=== PATIENT | male | born 1965 | race Caucasian/White ===

== ENCOUNTER 2020-06-21 07:22 | Emergency (ER) | payer OTHER, SELFPAY ==
[2020-06-21 07:40] VITALS: BP 143/86; PULSE 78; RESP 16; TEMP 37.2; O2SAT 97; BMI 39.5
--- NOTE | 2020-06-21 07:49 | ED.EXTPRO ---
HPI - Extremity Problem General Chief complaint: Extremity Injury, Upper Stated complaint: wrist pain Time Seen by Provider: 06/21/20 07:49 Source: patient Mode of arrival: ambulatory Limitations: no limitations History of Present Illness HPI Narrative: Saturday patient was at work denies injury but started developing increased pain. Patient is left handed MD Complaint: extremity pain Onset (ago): week(s) Location: left Related Data Previous Rx's Medication Instructions Recorded metoprolol tartrate 100 mg tablet 100 mg PO BID #180 tab 05/23/20 naproxen [Naprosyn] 500 mg PO BID #20 tab 06/21/20 Allergies Allergy/AdvReac Type Severity Reaction Status Date / Time No Known Allergies Allergy Unverified 04/28/20 14:58 N.K.D.A. Allergy Unknown Uncoded 12/03/17 00:00 Review of Systems Constitutional: Constitutional: Reports no additional constitutional complaints Eyes: Eyes: Reports no additional eye complaints ENT: Denies dizziness Cardiovascular: Cardiovascular: Reports no additional cardiovascular complaints Respiratory: Respiratory: Reports as per HPI Gastrointestinal: Gastrointestinal: Reports no additional gastrointestinal complaints Musculoskeletal: Musculoskeletal: Reports no additional musculoskeletal complaints Integumentary/Breasts: Skin/Breast: Denies rash Neurologic: Reports system reviewed and no additional complaints, except as documented, Denies dizziness and Denies Sensory deficit (Neuro) Psychiatric: Psychiatric: Denies anxiety PMF Past Medical History Medical History HTN (hypertension) Social History Social History Alcohol intake: unknown Smoking Status: Never smoker Smoked in Last 30 Days: No Use of substances other than those prescribed or required for medical reasons: No Advance Directives: Yes Advance Directives Information Provided: Yes Advance Directives on File: No Physical Exam Vital Signs: Vital Signs: Last Vital Signs Temp 98.9 F 06/21/20 07:40 Pulse 78 06/21/20 07:40 Resp 16 06/21/20 07:40 BP 143/86 H 06/21/20 07:40 Pulse Ox 97 06/21/20 07:40 Body Mass Index 39.5 Const: Other: large male General: healthy appearing Orientation/consciousness: oriented to person and patient oriented x3 Limitations: no limitations HENMT: Head: Yes normal to inspection Ears: external ears normal General nose exam: Normal external nose present Mouth: Normal oral and palatal mucosa present and oropharynx normal Throat: Yes posterior oropharynx normal Eyes: General: appearance normal, both eyes and all related structures Neck: Other: supple Neck: Yes normal visual inspection Chest: Chest palpation & inspection: normal inspection of the chest Resp: Auscultation: clear to auscultation bilaterally Cardio: Jugular venous distension: no JVD Rate: regular rate Rhythm: regular rhythm Heart sounds: S1 normal heart sound present and S2 normal heart sound present GI: Inspection: Yes normal to inspection Palpation (GI): Soft to palpation, nontender and No hepatosplenomegaly present Auscultation: normal bowel sounds : General: Yes no CVA tenderness Back/Spine/Pelvis: Back: no CVA tenderness Skin: General skin exam: no rashes or lesions noted Neuro: General: oriented to person and patient oriented x3 Cranial nerves: Yes CN's II-XII intact bilaterally Motor exam (neuro): 5/5 motor strength present throughout Sensory Exam: No Sensory deficit (Neuro) Extrem: Other: left wrist with mild swelling, no effusion appreciated, no erythema, pain with range of motion Psych: Appearance: grossly normal Course Course Course Narrative: Patient with costrocalcinosis on xray will treat with NSAIDS MDM - Extremity (Nontraumatic) MDM Narrative Medical decision making narrative: patient with likely arthralgias and inflammed wrist Discharge Plan Discharge Clinical Impression: Arthritis, Sprain and strain of wrist Patient Disposition: Home, Self-Care Instructions: Arthritis (ED) Prescriptions: New naproxen [Naprosyn] 500 mg tablet 500 mg PO BID Qty: 20 RF: 0 No Action metoprolol tartrate 100 mg tablet 100 mg PO BID Qty: 180 RF: 3 Referrals: Po,Anthony Macias MD [Primary Care Provider] - 2 days
--- NOTE | 2020-06-21 07:52 | XR_ITS ---
EXAMINATION: XR WRIST, LEFT CLINICAL INFORMATION: Pain, inflammation COMPARISON: None TECHNIQUE: Left wrist is imaged in 4 views. FINDINGS: There is dorsal bowing of the distal ulnar at the sigmoid notch. The pronator quadratus fat pad appears normal. The ulnar variance is neutral. There is no acute or healing fracture or carpal dislocation. There is fine chondrocalcinosis in the proximal radial carpal compartment in region of the triangular fibrocartilage and and possibly in region of the scapholunate ligament. There are no erosive changes. Benign contralateral cystic change seen distal ulnar. No matrix mineralization. No periostitis. XR/XR wrist LT min 3V IMPRESSION: 1. Dorsal bowing distal ulnar at the sigmoid notch. No acute or healing fracture. 2. Chondrocalcinosis in region of triangular fibrocartilage and scapholunate ligament. No erosive change.
[2020-06-21] MEDS: Ketorolac Tromethamine 60 MG/2 ML VIAL IM (08:02)
== END 2020-06-21 09:18 | disposition home or self-care (01) ==
PROVIDERS: Emergency Provider Emergency Medicine; PCP Internal Medicine
DX: S63.502A Unspecified sprain of left wrist, initial encounter (principal); M25.532 Pain in left wrist; X58.XXXA Exposure to other specified factors, initial encounter; Y93.9 Activity, unspecified; Y92.9 Unspecified place or not applicable; Y99.0 Civilian activity done for income or pay
CPT/HCPCS: 73110; 96372; 99283; 99284; J1885

== ENCOUNTER → 2020-09-07 10:00 | Outpatient (BNVA) | payer OTHER, SELFPAY | PROVIDERS: PCP Internal Medicine; Visit Provider Orthopaedic Surgery | DX: Z76.89 Persons encountering health services in other specified circumstances (principal) | CPT/HCPCS: 20550; J1100 ==

== ENCOUNTER 2020-09-28 11:37 | Outpatient (REF) | payer OTHER, SELFPAY ==
[2020-09-28 14:40] LABS: Alanine Aminotransferase 19 U/L (0-40); Albumin Level 3.9 g/dL (3.5-5.0); Alkaline Phosphatase 58 U/L (39-117); Anion Gap 10 (12-20); Aspartate Amino Transferase 22 U/L (5-37); Bilirubin Total 0.7 mg/dL (0.0-1.0); Blood Urea Nitrogen 24 mg/dL (9-16); Calcium 8.8 mg/dL (8.4-10.2); Carbon Dioxide 37 mmol/L (22-29); Chloride 100 mmol/L (96-108); Estimated Glomerular Filt Rate > 60; Glucose Random 93 mg/dL (60-115); Potassium 4.5 mmol/L (3.3-5.1); Sodium 142 mmol/L (135-145)
== END 2020-09-28 11:38 | disposition home or self-care (01) ==
LOC: HO.HMGCLDS 11:37
PROVIDERS: PCP Internal Medicine; Visit Provider Internal Medicine
DX: M79.89 Other specified soft tissue disorders (principal); M25.532 Pain in left wrist
CPT/HCPCS: 36415; 80053

== ENCOUNTER → 2021-06-06 13:16 | Outpatient (BNVA) | payer OTHER, SELFPAY | PROVIDERS: PCP Internal Medicine; Referring Provider Internal Medicine; Visit Provider Internal Medicine | DX: I48.19 Other persistent atrial fibrillation (principal); I10 Essential (primary) hypertension; G47.33 Obstructive sleep apnea (adult) (pediatric); E66.01 Morbid (severe) obesity due to excess calories; R06.02 Shortness of breath; B34.2 Coronavirus infection, unspecified; Q21.1 Atrial septal defect; E78.00 Pure hypercholesterolemia, unspecified; Z68.41 Body mass index [BMI] 40.0-44.9, adult; Z99.89 Dependence on other enabling machines and devices; Z79.899 Other long term (current) drug therapy | CPT/HCPCS: 93005 ==

== ENCOUNTER → 2021-06-28 15:27 | Outpatient (REF) | payer OTHER, SELFPAY ==
--- NOTE | 2021-06-28 15:30 | HM_ITS ---
Conclusion: 1. Patient was monitored for total period of 2 days and 23 hours 2. Baseline rhythm is atrial fibrillation with average heart of 75 beats per minute. Overall rate control is adequate with maximum heart rate 144 beats per minute 3. No significant pauses noted 4. Total of 671 PVCs accounting for 0.21% total burden comes for occasional PVCs 5. No patient reported events MTDD
== END ==
LOC: HO.CARD 15:27
PROVIDERS: PCP Internal Medicine; Visit Provider Internal Medicine
DX: I48.19 Other persistent atrial fibrillation (principal)
CPT/HCPCS: 93242

== ENCOUNTER → 2021-08-14 10:40 | Outpatient (BNVA) | payer OTHER, SELFPAY | PROVIDERS: PCP Internal Medicine; Referring Provider Internal Medicine; Visit Provider Internal Medicine ==

== ENCOUNTER → 2022-11-14 10:46 | Outpatient (BNVA) | payer OTHER, SELFPAY | PROVIDERS: PCP Internal Medicine; Visit Provider Nurse Practitioner Psychiatric/Mental Health | DX: F11.20 Opioid dependence, uncomplicated (principal); Z51.81 Encounter for therapeutic drug level monitoring; Z79.899 Other long term (current) drug therapy | CPT/HCPCS: 80305 ==

== ENCOUNTER → 2022-12-18 09:09 | Outpatient (BNVA) | payer OTHER, SELFPAY | PROVIDERS: PCP Internal Medicine; Visit Provider Nurse Practitioner Psychiatric/Mental Health | DX: Z51.81 Encounter for therapeutic drug level monitoring (principal) ==

== ENCOUNTER 2022-12-18 09:54 | Outpatient (REF) | payer OTHER, SELFPAY ==
[2022-12-18 10:23] LABS: MANUAL DIFF FLAG NO
[2022-12-18 10:42] LABS: Basophils Percent Auto 0.8 % (0-2); Eosinophils Absolute Auto 0.1 X10*3/uL (0.0-0.4); Eosinophils Percent Auto 1.1 % (0-4); Hematocrit 46.1 % (42.0-52.0); Hemoglobin 14.8 g/dl (14.0-18.0); Imm Gran Abs Auto 0.01 X10*3/uL (0.00-0.03); Imm Gran Pct Auto 0.2 % (0.0-0.4); Lymphocytes Percent Auto 18.9 % (20-40); Mean Corpuscular HGB Conc 32.1 g/dl (31.0-36.0); Mean Corpuscular Hemoglobin 29.7 pg (27.0-33.0); Mean Corpuscular Volume 92.4 fL (80.0-98.0); Mean Platelet Volume 10.1 fL (9.4-12.4); Monocytes Absolute Auto 0.5 X10*3/uL (0.1-1.2); Neutrophils Absolute Auto 3.7 x10*3/uL (2.0-8.3); Platelet Count 116 X10*3/uL (160-400); Red Blood Count 4.99 X10*6/uL (4.60-5.80); Red Cell Distribution Width 14.2 % (11.0-16.0); White Blood Count 5.3 X10*3/uL (4.8-10.8)
[2022-12-18 12:25] LABS: Alanine Aminotransferase 17 U/L (0-40); Albumin Level 3.8 g/dL (3.5-5.0); Alkaline Phosphatase 102 U/L (39-117); Anion Gap 13 (12-20); Aspartate Amino Transferase 26 U/L (5-37); Bilirubin Total 0.6 mg/dL (0.0-1.0); Blood Urea Nitrogen 38 mg/dL (9-16); Carbon Dioxide 31 mmol/L (22-29); Chloride 102 mmol/L (96-108); Estimated Glomerular Filt Rate > 60; Glucose Random 127 mg/dL (60-115); Potassium 4.9 mmol/L (3.3-5.1); Sodium 141 mmol/L (135-145); Total Protein 6.7 g/dL (6.5-8.0)
[2022-12-20 16:09] LABS: TS Negative Control Passed; TS Panel A 0; TS Panel B 2; TS Positive Control Passed; TSpotTB Negative (Negative)
== END 2022-12-18 09:55 | disposition home or self-care (01) ==
LOC: HO.LAB 09:54
PROVIDERS: PCP Dermatology; Visit Provider Dermatology
DX: Z11.1 Encounter for screening for respiratory tuberculosis (principal); L40.0 Psoriasis vulgaris; Z79.899 Other long term (current) drug therapy
CPT/HCPCS: 36415; 80053; 85025; 86481

== ENCOUNTER → 2023-01-15 09:07 | Outpatient (BNVA) | payer OTHER, SELFPAY | PROVIDERS: PCP Dermatology; Visit Provider Nurse Practitioner Psychiatric/Mental Health | DX: Z51.81 Encounter for therapeutic drug level monitoring (principal); F11.20 Opioid dependence, uncomplicated | CPT/HCPCS: 80305 ==

== ENCOUNTER 2023-02-20 09:11 | Outpatient (AMB) | payer OTHER, SELFPAY ==
[2023-02-20 09:22] VITALS: BP 126/72; PULSE 45; BMI 26.3
--- NOTE | 2023-02-20 09:22 | A.OFFVIS_ITS ---
Intake Vital Signs 02/20/23 09:22 Height 5 ft 8 in Weight 172 lb 13.478 oz BMI 26.3 BP 126/72 Blood Pressure Location Lt brachial Position Sitting Pulse 45 L Intake Visit Reasons: follow up Intake Note: follow up w/ EKG Filling Carrier Required: No Accompanied by: Self / Same As Patient Allergies No Known Allergies Allergy (Verified 02/20/23 09:26) Medication List - Last Reconciled 02/20/23 by Manjit Giles MD apixaban (Eliquis) 5 mg PO BID 90 days buprenorphine-naloxone 4-1 mg 1 film sublingual DAILY fenofibrate 160 mg PO DAILY furosemide (Lasix) 40 mg (2 x 20 mg) PO DAILY 90 days guselkumab (Tremfya) mg subcut metoprolol tartrate 100 mg PO BID simvastatin 40 mg PO BEDTIME HPI HPI Comments History of Present Illness Details Channing is here for followup regarding various issues including atrial fibrillation, atrial septal defect. He has a history of secundum atrial septal defect. He underwent surgical closure of the same in 2008. He also had postoperative atrial fibrillation but it seems that that probably resolved after the initial postoperative. However we had seen him in 2014 and at that time he was in atrial fibrillation. Cardioversion was recommended at that time, but we did not see him back till 2020. However, after that he is not again been seen in a while but now returns for follow-up. Since last seen, he actually has been doing quite well. He has lost more than 100 lb in weight. He states he is going to the gym twice a day. He has absolutely no cardiac symptoms. [facility] Medical History (Updated 11/16/22 @ 11:18 by Nyasia Miguel CNP) Atrial fibrillation Atrial septal defect Biceps tendon rupture Chronic low back pain COVID-19 virus infection Hypercholesterolemia Left wrist tendinitis Obesity (BMI 30-39.9) Obstructive sleep apnea Psoriasis Synovial cyst of popliteal space [Lyle], left knee Surgical History H/O arthroscopic knee surgery H/O spinal fusion H/O umbilical hernia repair History of repair of atrial septal defect Family History Father No problems noted. Mother No problems noted. 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 Cognitive needs: No Hearing needs: No Vision needs: No Review of Systems Const Denies weakness ENT Denies dizziness Card Denies chest pain, Denies chest pain with activity, Denies syncope, Denies rapid heart rate, Denies pedal edema, Denies edema, Denies leg edema, Denies lightheadedness, Denies palpitations, Denies dyspnea, Denies dyspnea on exertion and Denies orthopnea Resp Denies cough, Denies dyspnea and Denies dyspnea on exertion GI Denies hematochezia and Denies change in stool character Musc Denies abnormal gait, Denies muscle cramps, Denies muscle weakness, Denies numbness, Denies radiating pain into limb and Denies tingling Neuro Denies abnormal gait, Denies dizziness, Denies syncope, Denies numbness, Denies tingling and Denies weakness Endo Denies palpitations Physical Exam Vital Signs: Last Vital Signs Pulse 45 L 02/20/23 09:22 BP 126/72 02/20/23 09:22 BMI result Body Mass Index 26.3 Const General: comfortable and no acute distress Orientation/consciousness: patient oriented x3 HEENT Other: Unremarkable Head: Yes normal to inspection Neck Neck: Yes normal visual inspection Chest Chest palpation & inspection: normal inspection of the chest Resp Auscultation: clear to auscultation bilaterally Cardio Palpation: normal PMI Heart sounds: S1 normal heart sound present, S2 normal heart sound present, no gallops, no murmurs and no rubs GI Palpation (GI): Soft to palpation Back/Spine/Pelvis Other: unremarkable Skin General skin exam: no rashes or lesions noted Neuro General: patient oriented x3 Extrem General: Yes normal to inspection Psych Mental Status: mental status grossly normal Office Procedures EKG Details: EKG with atrial fibrillation at a rate of 45/Min; right bundle-branch block pattern. [id number], Complete Assessment & Plan Assessment & Plan (1) Chronic right heart failure: Code(s): I50.812 - Chronic right heart failure Plan: Echocardiogram from [facility] shows marked enlargement of right ventricle with global hypokinesis. Could be related to combination of obesity, untreated sleep apnea, history of ASD. As he has lost lot of weight, we can recheck to see if any improvement. With regard diuretics, we can stop it and see how he does. If necessary, use a lower dose or just use p.r.n.. He understands. (2) NICM (nonischemic cardiomyopathy): Code(s): I42.8 - Other cardiomyopathies Plan: Mild LV dysfunction with EF of 45-50%. Could be from atrial fibrillation. To be recheck. Meds to be adjusted accordingly considering the fact that he has lost more than 100 lb in weight. (3) Status post atrial septal defect closure: Code(s): Z87.74 - Personal history of (corrected) congenital malformations of heart and circulatory system Plan: Preoperative cardiac catheterization showed normal coronaries. (4) Persistent atrial fibrillation: Code(s): I48.19 - Other persistent atrial fibrillation Plan: He has had this probably for a decade now. In the last echocardiogram, severely enlarged left atrium and moderately enlarged right atrium. Unlikely that respond to cardioversion. However, we can do a Holter and then we can readdress this. Continue anticoagulation. (5) Essential hypertension: Code(s): I10 - Essential (primary) hypertension Plan: Stable. (6) Obstructive sleep apnea: Code(s): G47.33 - Obstructive sleep apnea (adult) (pediatric) Plan: Most likely it improved as he has lost lot of weight. Still may need some formal assessment. In the past, was sent to pulmonary but do not see any visits. (7) Morbid obesity: Code(s): E66.01 - Morbid (severe) obesity due to excess calories Plan: He has done very well in this regard. In August 2021, he was 288 lb in weight. Today he is 172 lb. Overall, more than 100 lb weight loss. Hopefully, he can keep it this way. Orders: Orders CA echo transthoracic complete Today I42.8 - Other cardiomyopathies, I50.812 - Chronic right heart failure ECG 3 day holter monitor Today I48.19 - Other persistent atrial fibrillation Lipid Panel Today E78.5 - Hyperlipidemia, unspecified Medications: New metoprolol tartrate 50 mg PO BID 180 tabs 3RF 90 days Discontinued metoprolol tartrate Discontinued Reason: Doctor's Order 100 mg PO BID 180 tabs 0RF Coding Level of Care Code Est Pt Level 4 (84143) Diagnoses Chronic right heart failure I50.812 NICM (nonischemic cardiomyopathy) I42.8 Status post atrial septal defect closure Z87.74 Persistent atrial fibrillation I48.19 Essential hypertension I10 Obstructive sleep apnea G47.33 Morbid obesity E66.01 CPT Codes EKG - CPT: 57430-[id number], Complete ([id number])
== END 2023-02-20 09:53 | disposition home or self-care (01) ==
PROVIDERS: PCP Dermatology; Visit Provider Internal Medicine
DX: I50.812 Chronic right heart failure (principal); I42.8 Other cardiomyopathies; Z87.74 Personal history of (corrected) congenital malformations of heart and circulatory system; I48.19 Other persistent atrial fibrillation; I10 Essential (primary) hypertension; G47.33 Obstructive sleep apnea (adult) (pediatric); E66.01 Morbid (severe) obesity due to excess calories
CPT/HCPCS: 93010; 99214

== ENCOUNTER → 2023-02-20 09:11 | Outpatient (BNVA) | payer OTHER, SELFPAY | PROVIDERS: PCP Dermatology; Visit Provider Internal Medicine | DX: I48.19 Other persistent atrial fibrillation (principal); I11.0 Hypertensive heart disease with heart failure; I50.812 Chronic right heart failure; I42.8 Other cardiomyopathies; G47.33 Obstructive sleep apnea (adult) (pediatric); E66.01 Morbid (severe) obesity due to excess calories; E78.5 Hyperlipidemia, unspecified; Z87.74 Personal history of (corrected) congenital malformations of heart and circulatory system; Z79.899 Other long term (current) drug therapy | CPT/HCPCS: 93005 ==

== ENCOUNTER 2023-03-12 09:03 | Outpatient (AMB) | payer OTHER, SELFPAY ==
--- NOTE | 2023-03-12 09:04 | MHC.OFFVIS ---
Intake Vital Signs 03/12/23 09:16 BP 118/70 Blood Pressure Location Lt radial Position Sitting Pulse 63 Pulse Source Pulse Oximeter Pulse Oximetry (%) 98 Oxygen Delivery Method Room Air Intake Visit Reasons: MAT Visit Intake Note: The patient presents for a mat visit Director Learning Services Required: No Allergies No Known Allergies Allergy (Verified 03/12/23 09:05) Do you need a note to return to daycare/school/sports/work: No HPI MAT Visit HPI Details Patient presents for follow up Currently prescribed Suboxone 4mg QD Doing well with current dose Was reading information on Sublocade, would like to trial Discussed side effects, dosing and goals of medicaiton. Patient verbalized understaning. [facility] Medical History (Updated 11/16/22 @ 11:18 by Nyasia Miguel CNP) Atrial fibrillation Atrial septal defect Biceps tendon rupture Chronic low back pain COVID-19 virus infection Hypercholesterolemia Left wrist tendinitis Obesity (BMI 30-39.9) Obstructive sleep apnea Psoriasis Synovial cyst of popliteal space [Lyle], left knee Surgical History H/O arthroscopic knee surgery H/O spinal fusion H/O umbilical hernia repair History of repair of atrial septal defect Family History Father No problems noted. Mother No problems noted. 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 Cognitive needs: No Hearing needs: No Vision needs: No Review of Systems Const Reports as per HPI Physical Exam Vital Signs: Last Vital Signs Pulse 63 03/12/23 09:16 BP 118/70 03/12/23 09:16 Pulse Ox 98 03/12/23 09:16 Oxygen Delivery Method Room Air 03/12/23 09:16 Const General: cooperative and healthy appearing Psych Appearance: well kempt Speech and movement: Clear speech present Affect: normal affect Attitude: cooperative Thought process: Normal thought process present Thought content: Normal thought content present Insight: Good insight present (Psych) Judgement: Good judgement present (Psych) Assessment & Plan Assessment & Plan (1) Opioid dependence: Code(s): F11.20 - Opioid dependence, uncomplicated Plan: Continue Suboxone at current dose Follow-up 8 weeks Sublocade 100mg to be ordered Medications: Refilled buprenorphine-naloxone 4-1 mg 1 film sublingual DAILY 30 ea 1RF Coding Level of Care Code Est Pt Level 3 (13721) Diagnoses Opioid dependence F11.20
[2023-03-12 09:16] VITALS: BP 118/70; PULSE 63; O2SAT 98
== END 2023-03-12 09:59 | disposition home or self-care (01) ==
LOC: HO.HCC 09:03
PROVIDERS: PCP Dermatology; Visit Provider Nurse Practitioner Psychiatric/Mental Health
DX: F11.20 Opioid dependence, uncomplicated (principal)
CPT/HCPCS: 99213

== ENCOUNTER → 2023-03-12 09:03 | Outpatient (BNVA) | payer OTHER, SELFPAY | PROVIDERS: PCP Dermatology; Visit Provider Nurse Practitioner Psychiatric/Mental Health | DX: Z51.81 Encounter for therapeutic drug level monitoring (principal) ==

== ENCOUNTER → 2023-04-04 09:05 | Outpatient (BNV) | payer OTHER, SELFPAY | PROVIDERS: PCP Internal Medicine; Visit Provider Internal Medicine Cardiovascular Disease | DX: I48.91 Unspecified atrial fibrillation (principal) | CPT/HCPCS: 93244 ==

== ENCOUNTER → 2023-04-04 09:05 | Outpatient (REF) | payer OTHER, SELFPAY ==
--- NOTE | 2023-04-04 09:05 | HM_ITS ---
Conclusion: 1. Patient was monitored for total period of 3 days 2. Baseline rhythm is atrial fibrillation with average heart of 68 beats per minute 3. Multiple pauses greater than 2.5 but no longer than 3.1 seconds, all during sleeping hours, not significant 4. Rare PVCs noted with 2 triplets of wide complex which could represent aberrant conduction with fastest heart of 153 beats per minute 5. Patient marked the counter 2 times with no reported symptoms correlating with baseline atrial fibrillation MTDD
== END ==
LOC: HO.CARD 09:05
PROVIDERS: PCP Internal Medicine; Visit Provider Internal Medicine
DX: I48.19 Other persistent atrial fibrillation (principal); I50.812 Chronic right heart failure
CPT/HCPCS: 93242

== ENCOUNTER 2023-04-17 09:00 | Outpatient (AMB) | payer OTHER, SELFPAY ==
--- NOTE | 2023-04-17 09:01 | MHC.OFFVIS ---
Intake Intake Visit Reasons: INJ Intake Note: the patient presents for sub inj Museum Tour Guide Required: No Allergies No Known Allergies Allergy (Verified 04/17/23 09:04) Do you need a note to return to daycare/school/sports/work: No [facility] Medical History (Updated 11/16/22 @ 11:18 by Nyasia Miguel CNP) Atrial fibrillation Atrial septal defect Biceps tendon rupture Chronic low back pain COVID-19 virus infection Hypercholesterolemia Left wrist tendinitis Obesity (BMI 30-39.9) Obstructive sleep apnea Psoriasis Synovial cyst of popliteal space [Lyle], left knee Surgical History H/O arthroscopic knee surgery H/O spinal fusion H/O umbilical hernia repair History of repair of atrial septal defect Family History Father No problems noted. Mother No problems noted. 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 Cognitive needs: No Hearing needs: No Vision needs: No Coding Diagnoses
[2023-04-17 09:10] VITALS: BP 118/78; PULSE 55; O2SAT 97
--- NOTE | 2023-04-17 09:18 | A.OFFVIS_ITS ---
Intake Vital Signs 04/17/23 09:10 BP 118/78 Blood Pressure Location Lt radial Position Sitting Pulse 55 Pulse Source Pulse Oximeter Pulse Oximetry (%) 97 Oxygen Delivery Method Room Air Intake Visit Reasons: INJ Allergies No Known Allergies Allergy (Verified 04/17/23 09:04) HPI INJ HPI Details Patient presents for follow-up and 1st Sublocade injection Medication reviewed with patient including potential side effects, goals of treatment and ongoing follow-up. Patient verbalized understanding. No other questions or concerns at this time. [facility] Medical History (Updated 04/18/23 @ 13:06 by Nyasia Miguel CNP) Synovial cyst of popliteal space [Lyle], left knee COVID-19 virus infection Biceps tendon rupture Atrial septal defect Obstructive sleep apnea Chronic low back pain Obesity (BMI 30-39.9) Atrial fibrillation Psoriasis Hypercholesterolemia Left wrist tendinitis Surgical History H/O arthroscopic knee surgery H/O spinal fusion H/O umbilical hernia repair History of repair of atrial septal defect Family History Father No problems noted. Mother No problems noted. 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 Cognitive needs: No Hearing needs: No Vision needs: No Review of Systems Const Reports as per HPI and Reports no additional complaints Physical Exam Vital Signs: Last Vital Signs Pulse 55 04/17/23 09:10 BP 118/78 04/17/23 09:10 Pulse Ox 97 04/17/23 09:10 Oxygen Delivery Method Room Air 04/17/23 09:10 Const General: cooperative and healthy appearing Psych Appearance: well kempt Speech and movement: Clear speech present Affect: normal affect Attitude: cooperative Thought process: Normal thought process present Thought content: Normal thought content present Insight: Good insight present (Psych) Judgement: Good judgement present (Psych) Office Meds Sublocade 100 mg/0.5 mL solution,extended release subcutaneous syringe Performing Provider: Nyasia Miguel CNP Performing Location: [facility] Administered by: Roseann Guerra RN on 04/17/23 09:30 Dose Route Admin Location Dispensed Lot Number Expiration Date [facility] Operations Liaison 100 mg subcut 0.5 mL [id number] 03/11/24 [id number] [place]. Comments: Pt presents for initial inj. Robert injection well, pt remained for 10 mins post inj, reported no concerns or reaction post inj. Educated on signs and symptoms of infection, not to pick at the inj site, and to call the clinic with any questions or concerns. Pt verbalized understanding. Assessment & Plan Assessment & Plan (1) Opioid dependence: Code(s): F11.20 - Opioid dependence, uncomplicated Qualifiers: Substance use status: uncomplicated Qualified Code(s): F11.20 - Opioid dependence, uncomplicated Plan: * Tolerated injection * Follow-up 4 weeks * Encouraged to call office with any questions or concerns prior to next appointment Orders: Orders AMB Buprenorphine Injection - Patient Supplied 04/17/23 F11.20 - Opioid dependence, uncomplicated Coding Level of Care Code Est Pt Level 3 (58106) Diagnoses Uncomplicated opioid dependence F11.20 Substance use status: uncomplicated
== END 2023-04-17 10:01 | disposition home or self-care (01) ==
PROVIDERS: PCP Internal Medicine; Visit Provider Nurse Practitioner Psychiatric/Mental Health
DX: F11.20 Opioid dependence, uncomplicated (principal)
CPT/HCPCS: 99213; Q9991

== ENCOUNTER → 2023-04-17 09:00 | Outpatient (BNVA) | payer OTHER, SELFPAY | PROVIDERS: PCP Internal Medicine | DX: F11.20 Opioid dependence, uncomplicated (principal) | CPT/HCPCS: 96372 ==

== ENCOUNTER 2023-05-13 09:25 | Outpatient (AMB) | payer OTHER, SELFPAY ==
--- NOTE | 2023-05-13 09:30 | A.OFFVIS_ITS ---
Intake Vital Signs 05/13/23 09:32 Height 5 ft 8 in Weight 71 lb BMI 10.8 BP 113/71 Blood Pressure Location Lt brachial Position Sitting Pulse 72 Intake Visit Reasons: Colonoscopy Screening Intake Note: Patient new consult for 1st pre colonoscopy screening. Patient denies any GI issues. Ordnance Handler Required: No Accompanied by: Self / Same As Patient Allergies No Known Allergies Allergy (Verified 05/13/23 09:29) Medication List - Last Reconciled 05/13/23 by Yamel Johnston PA-C apixaban (Eliquis) 5 mg PO BID bisacodyl (Dulcolax (bisacodyl)) 20 mg (4 x 5 mg) PO ONCE 1 day buprenorphine ER (Sublocade) 100 mg subcutaneously q4 weeks; fenofibrate 160 mg PO DAILY furosemide (Lasix) 40 mg (2 x 20 mg) PO DAILY 90 days guselkumab (Tremfya) mg subcut metoprolol tartrate 50 mg PO BID 90 days polyethylene glycol 3350 (Miralax) 238 grams PO ONCE PRN 1 day simvastatin 40 mg PO BEDTIME HPI HPI Comments History of Present Illness Details A 57 y/o male referred for index screening colonoscopy- he has no GI complaints- He has been intentionally working to lose weight- goes to the gym twice daily- lost 100 pounds- he is very happy with his success- Appetite is good- bowels are normal No GI complaints- no family hx GI cancers FOR[facility]LY [facility], [facility] Medical History (Updated 05/13/23 @ 10:09 by Yamel Johnston PA-C) Synovial cyst of popliteal space [Lyle], left knee COVID-19 virus infection Biceps tendon rupture Atrial septal defect Obstructive sleep apnea Chronic low back pain Obesity (BMI 30-39.9) Atrial fibrillation Psoriasis Hypercholesterolemia Left wrist tendinitis Surgical History H/O umbilical hernia repair H/O arthroscopic knee surgery History of repair of atrial septal defect H/O spinal fusion Family History Father No problems noted. Mother No problems noted. 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 Cognitive needs: No Hearing needs: No Vision needs: No Review of Systems Const All systems reviewed & are unremarkable except as noted in HPI and below Physical Exam Vital Signs: Last Vital Signs Pulse 72 05/13/23 09:32 BP 113/71 05/13/23 09:32 BMI result Body Mass Index 10.8 Const General: cooperative, healthy appearing and comfortable Orientation/consciousness: patient oriented x3 Limitations: no limitations Eyes Conjunctivae: conjunctival abnormal (injected- no drainage) Resp Effort & Inspection: normal respiratory effort and able to speak in complete sentences Auscultation: clear to auscultation bilaterally, no rales, no rhonchi and no wheezes Cardio Rate: regular rate Rhythm: regular rhythm Heart sounds: S1 normal heart sound present and S2 normal heart sound present GI Palpation (GI): Soft to palpation and nontender Auscultation: normal bowel sounds Neuro General: patient oriented x3 Extrem General: Yes full ROM Psych Appearance: grossly normal and well kempt Mental Status: mental status grossly normal Speech and movement: Normal speech and movement present and Clear speech present Affect: normal affect Attitude: cooperative Thought process: Normal thought process present Thought content: Normal thought content present Insight: Good insight present (Psych) Judgement: Good judgement present (Psych) Results Reviewed Results Reviewed: 02/2023- (1) Chronic right heart failure: Code(s): I50.812 - Chronic right heart failure Plan: Echocardiogram from [facility] shows marked enlargement of right ventricle with global hypokinesis. Could be related to combination of obesity, untreated sleep apnea, history of ASD. As he has lost lot of weight, we can recheck to see if any improvement. With regard diuretics, we can stop it and see how he does. If necessary, use a lower dose or just use p.r.n.. He understands. (2) NICM (nonischemic cardiomyopathy): Code(s): I42.8 - Other cardiomyopathies Plan: Mild LV dysfunction with EF of 45-50%. Could be from atrial fibrillation. To be recheck. Meds to be adjusted accordingly considering the fact that he has lost more than 100 lb in weight. (3) Status post atrial septal defect closure: Code(s): Z87.74 - Personal history of (corrected) congenital malformations of heart and circulatory system Plan: Preoperative cardiac catheterization showed normal coronaries. (4) Persistent atrial fibrillation: Code(s): I48.19 - Other persistent atrial fibrillation Plan: He has had this probably for a decade now. In the last echocardiogram, severely enlarged left atrium and moderately enlarged right atrium. Unlikely that respond to cardioversion. However, we can do a Holter and then we can readdress this. Continue anticoagulation. (5) Essential hypertension: Code(s): I10 - Essential (primary) hypertension Plan: Stable. (6) Obstructive sleep apnea: Code(s): G47.33 - Obstructive sleep apnea (adult) (pediatric) Plan: Most likely it improved as he has lost lot of weight. Still may need some formal assessment. In the past, was sent to pulmonary but do not see any visits. (7) Morbid obesity: Code(s): E66.01 - Morbid (severe) obesity due to excess calories Plan: He has done very well in this regard. In August 2021, he was 288 lb in weight. Today he is 172 lb. Overall, more than 100 lb weight loss. Hopefully, he can keep it this way. Orders: Assessment & Plan Assessment & Plan (1) Atrial fibrillation: Comment: Persistent atrial fibrillationas seen cardiology Code(s): I48.91 - Unspecified atrial fibrillation (2) Chronic right heart failure: Code(s): I50.812 - Chronic right heart failure (3) Colon cancer screening: Comment: index screening MG split Code(s): Z12.11 - Encounter for screening for malignant neoplasm of colon Plan Index screening colonoscopy- anesthesia/ cardiology clearance- eliquis- typically d/c x 2 days Orders: Orders Colonoscopy - GI Use Only Today Z12.11 - Encounter for screening for malignant neoplasm of colon Medications: New bisacodyl (Dulcolax (bisacodyl)) Take 4 tablets by mouth at 12:00pm the day before your procedure. 20 mg (4 x 5 mg) PO ONCE 1 day 4 tabs 0RF colonoscopy prep Z12.11 - Encounter for screening for malignant neoplasm of colon polyethylene glycol 3350 (Miralax) Take as directed by mouth the day before your procedure. 238 grams PO ONCE 1 day PRN 238 grams 0RF laxative effect Patient Instructions: index screening colonoscopy- MG split prep Eliquis d/c x 2 days if approved by cardiology Coding Level of Care Code New Pt Level 4 (91739) Diagnoses Atrial fibrillation I48.91 Chronic right heart failure I50.812 Colon cancer screening Z12.11 Time Spent (min) 40
[2023-05-13 09:32] VITALS: BP 113/71; PULSE 72; BMI 10.8
== END 2023-05-13 11:44 | disposition home or self-care (01) ==
PROVIDERS: PCP Internal Medicine; Visit Provider Physician Assistant
DX: I48.91 Unspecified atrial fibrillation (principal); I50.812 Chronic right heart failure; Z12.11 Encounter for screening for malignant neoplasm of colon
CPT/HCPCS: 99204

== ENCOUNTER → 2023-05-13 09:25 | Outpatient (BNVA) | payer OTHER, SELFPAY | PROVIDERS: PCP Internal Medicine; Visit Provider Physician Assistant ==

== ENCOUNTER 2023-05-15 13:27 | Outpatient (AMB) | payer OTHER, SELFPAY ==
--- NOTE | 2023-05-15 13:28 | AM.OFFVISNUR ---
Intake Vital Signs 05/15/23 13:34 BP 114/66 Blood Pressure Location Lt radial Position Sitting Pulse 68 Pulse Source Pulse Oximeter Pulse Oximetry (%) 96 Oxygen Delivery Method Room Air Intake Visit Reasons: Sub Inj Intake Note: the patient presents for a sub inj Bagger And Stock Handler Helper Required: No Allergies No Known Allergies Allergy (Verified 05/15/23 13:35) Do you need a note to return to daycare/school/sports/work: No Coding
[2023-05-15 13:34] VITALS: BP 114/66; PULSE 68; O2SAT 96
== END 2023-05-15 13:53 | disposition home or self-care (01) ==
PROVIDERS: PCP Internal Medicine
DX: F11.20 Opioid dependence, uncomplicated (principal)

== ENCOUNTER → 2023-05-15 13:27 | Outpatient (BNVA) | payer OTHER, SELFPAY | PROVIDERS: PCP Internal Medicine; Visit Provider Nurse Practitioner Family | DX: F11.20 Opioid dependence, uncomplicated (principal) | CPT/HCPCS: 96372; Q9992 ==

== ENCOUNTER → 2023-05-24 14:20 | Outpatient (REF) | payer OTHER, SELFPAY ==
--- NOTE | 2023-05-24 14:22 | CA_ITS ---
Transthoracic Echocardiogram Patient (Last, First, Middle): Channing Bauman F Gender: Male Date of : 1965 Age: 57 Procedure Date: 05/24/2023 Procedure Type: Transthoracic Echocardiogram Location: OP Height: 175.26 cm Weight: 74.84 kg BSA: 1.90 m2 Heart Rate: 57 bpm BP: 95 / 60 mmHg Sql Architect: CESAR Referring MD: Manjit Giles MD Symptoms: I42.8 - Other cardiomyopathies Study Quality: Adequate/w Contrast ECG Rhythm: Atrial Fibrillation Conclusions: - Normal left ventricular cavity size. There is mildly increased left ventricular wall thickness. The left ventricular systolic function is moderately decreased. The visually estimated ejection fraction is between 30-35%. - Mildly increased right ventricular cavity size. - There is moderately decreased right ventricular systolic function. - The left atrium is severely dilated. - The right atrium is severely dilated. - There is moderate dilatation of the sinuses of Valsalva measuring 4.60 cm and mild dilatation of the ascending aorta measuring 3.80 cm. Findings Procedure Information Contrast agent, definity, is being given per protocol without apparent complications. Left Ventricle Normal left ventricular cavity size. There is mildly increased left ventricular wall thickness. The left ventricular systolic function is moderately decreased. The visually estimated ejection fraction is between 30 35%. There is moderate global hypokinesis. Diastolic function is indeterminate on the basis of available data. Right Ventricle Mildly increased right ventricular cavity size. There is moderately decreased right ventricular systolic function. Atria The left atrium is severely dilated. The right atrium is severely dilated. Aortic Valve Normal aortic valve structure and function. There is no aortic valve stenosis. There is trace (trivial) aortic valve regurgitation. Mitral Valve The mitral valve appears normal. There is trace mitral valve regurgitation. There is no mitral valve stenosis. Pulmonic Valve Normal pulmonic valve structure and function. There is trace pulmonic valve regurgitation. Tricuspid Valve Normal tricuspid valve structure and function. There is no tricuspid valve regurgitation. Normal right atrial pressure. There is no evidence of pulmonary hypertension. Great Vessels There is moderate dilatation of the sinuses of Valsalva measuring 4.60 cm and mild dilatation of the ascending aorta measuring 3.80 cm. The visualized portions of the pulmonary artery and branches are normal. Venous The inferior vena cava is normal in size and collapses greater than 50% with inspiration. Pericardium/Pleural There is no evidence of pericardial effusion. Prior Study Comparison Changes noted compared to prior study dated: 04/22/2015. Mod LV dysfunction 30-35%, severe biatrial enlargement. Measurements 2D Linear Measurements IVSd: 1.19 0.6-0.9/0.6-1.0 cm LVIDd: 5.28 3.9-5.3/4.2-5.9 cm LVIDd Index: 2.78 2.4-3.2/2.2-3.1 cm/m2 LVIDs: 3.81 2.0-3.6 cm LVPWd: 1.06 0.7-1.1 cm LA Diam: 5.50 2.7-3.8/3.0-4.0 cm LAIDs Index: 2.89 1.5-2.3 cm/m2 LV Mass: 290.95 67-162/88-224 g LV Mass Index: 153.13 43-95/49-115 g/m2 LVOT Diam: 2.20 3.0+(-)1.3 cm 2D Systolic Function EF 4C: 54.60 >55% EF 2C: 51.80 >55% EF BiP: 51.90 >55% Mitral Valve MV Pk E: 0.76 MV Decel Time: 202.00 E'Lateral: 13.40 E'Medial: 12.00 E/E' Med: 6.40 E/E' Lat: 5.70 PHT: 59.00 MVA PHT: 3.73 Decel [place]: 3.78 Aortic Valve AoV Pk Luis A: 0.85 AoV Mn Luis A: 0.63 AoV VTI: 0.19 AoV Pk Grad: 3.00 Aov Mn Grad: 2.00 TIA Cont.VTI: 3.42 LVOT LVOT Pk Luis A: 0.84 LVOT Mn Luis A: 0.59 LVOT VTI: 0.17 LVOT Pk Grad: 3.00 LVOT Mn Grad: 2.00 LVOT Diam: 2.20 LVOT Area: 3.80 Diastolic Function MV Pk E: 0.76 E'Medial: 12.00 E/E' Med: 6.40 E' Laterial: 13.40 E/E' Lat: 5.70 Right Ventricle TAPSE (mm): 19.30 TVS' Luis A: 7.18 Tricuspid Valve TR Pk Luis A: 1.77 TR Pk Grad: 13.00 RA Press: 8.00 RVSP: 21.00 Great Vessels Aorta Sinus of Valsalva: 4.60 2.0-3.5 cm Ao Asc: 3.80 2.1-3.4 cm Pulmonary Valve PV Pk Luis A: 0.76 Peak PV Grad: 2.00 Updated in Other Vendor System with Status of Final Stevan Nicholson MD electronically signed on 05/27/2023 11:06:02 AM with status of Final
== END ==
LOC: HO.CARD 14:20
PROVIDERS: PCP Internal Medicine; Visit Provider Internal Medicine
DX: I42.8 Other cardiomyopathies (principal); I50.812 Chronic right heart failure
CPT/HCPCS: 93306; Q9957

== ENCOUNTER → 2023-05-24 14:22 | Outpatient (BNV) | payer OTHER, SELFPAY | PROVIDERS: PCP Internal Medicine; Visit Provider Internal Medicine Cardiovascular Disease | DX: I42.8 Other cardiomyopathies (principal) | CPT/HCPCS: 93306 ==

== ENCOUNTER 2023-06-12 13:29 | Outpatient (AMB) | payer OTHER, SELFPAY ==
--- NOTE | 2023-06-12 13:30 | AM.OFFVISNUR ---
Intake Vital Signs 06/12/23 13:39 BP 118/82 Blood Pressure Location Lt radial Position Sitting Pulse 85 Pulse Source Pulse Oximeter Pulse Oximetry (%) 97 Oxygen Delivery Method Room Air Intake Visit Reasons: Sub Inj Intake Note: The patient presents for a sub inj Auto Polisher Required: No Allergies No Known Allergies Allergy (Verified 06/12/23 13:41) Do you need a note to return to daycare/school/sports/work: No Nursing Note Pt presents for 3rd Sublocade injection. Reports this month has been excellent. Continuing staying busy with work and going to the gym. Reports feeling the depot from last injection, educated pt and assured pt that it is not abnormal to still feel it. Denies other questions or concerns. Office Meds Sublocade 100 mg/0.5 mL solution,extended release subcutaneous syringe Performing Provider: Nyasia Miguel CNP Performing Location: [facility] Administered by: Lorelei Romero on 06/12/23 13:50 Dose Route Admin Location Dispensed Lot Number Expiration Date [facility] [employer] 100 mg subcut RUQ 0.5 mL [id number] 04/12/24 [address]-3 [employer]. Comments: Pt tolerated injection well. Educated on signs/symptoms of infection, encouraged to call the [facility] with questions or concerns. Coding Assessment & Plan Assessment & Plan Orders: Orders AMB Buprenorphine Injection - Patient Supplied Today F11.20 - Opioid dependence, uncomplicated
[2023-06-12 13:39] VITALS: BP 118/82; PULSE 85; O2SAT 97
== END 2023-06-12 14:09 | disposition home or self-care (01) ==
PROVIDERS: PCP Internal Medicine
DX: F11.20 Opioid dependence, uncomplicated (principal)

== ENCOUNTER → 2023-06-12 13:29 | Outpatient (BNVA) | payer OTHER, SELFPAY | PROVIDERS: PCP Internal Medicine | DX: F11.20 Opioid dependence, uncomplicated (principal); Z79.899 Other long term (current) drug therapy | CPT/HCPCS: 96372; Q9992 ==

== ENCOUNTER 2023-07-10 13:25 | Outpatient (AMB) | payer OTHER, SELFPAY ==
--- NOTE | 2023-07-10 13:31 | AM.OFFVISNUR ---
Intake Vital Signs 07/10/23 13:41 BP 124/72 Blood Pressure Location Lt radial Position Sitting Pulse 74 Pulse Source Pulse Oximeter Pulse Oximetry (%) 99 Oxygen Delivery Method Room Air Intake Visit Reasons: Sub Inj Intake Note: the patient is here for a sub inj Surface Supply Breathing Apparatus Required: No Allergies No Known Allergies Allergy (Verified 07/10/23 13:42) Do you need a note to return to daycare/school/sports/work: No Nursing Note Pt is here for 4 week OUD follow-up and 4th BUP INJ. Pt reports positive effects at this dosage and is pleased with lack of injection effects wearing off toward the end of the 4 weeks. Pt doing well, going to the gym on a regular basis, reports no cravings or substance use. Pt informed to contact the [facility] with any questions or concerns as none are present at this time. Patient tolerated injection well. Follow-up in 4 weeks. Coding
[2023-07-10 13:41] VITALS: BP 124/72; PULSE 74; O2SAT 99
== END 2023-07-10 14:32 | disposition home or self-care (01) ==
PROVIDERS: PCP Internal Medicine
DX: F11.20 Opioid dependence, uncomplicated (principal)

== ENCOUNTER → 2023-07-10 13:25 | Outpatient (BNVA) | payer OTHER, SELFPAY | PROVIDERS: PCP Internal Medicine | DX: F11.20 Opioid dependence, uncomplicated (principal) | CPT/HCPCS: 96372; Q9992 ==

== ENCOUNTER 2023-08-06 13:15 | Outpatient (AMB) | payer OTHER, SELFPAY ==
--- NOTE | 2023-08-06 13:19 | MHC.AM.SUB ---
Intake Vital Signs 08/06/23 13:28 BP 122/84 Blood Pressure Location Lt radial Position Sitting Pulse 87 Pulse Source Palpation Pulse Oximetry (%) 98 Oxygen Delivery Method Room Air Intake Visit Reasons: Sub Inj Intake Note: the patient presents for a sub inj New Product Trainer Required: No Allergies No Known Allergies Allergy (Verified 08/06/23 13:29) Do you need a note to return to daycare/school/sports/work: No PFSH Medical History (Updated 05/13/23 @ 10:09 by Yamel Johnston PA-C) Synovial cyst of popliteal space [Lyle], left knee COVID-19 virus infection Biceps tendon rupture Atrial septal defect Obstructive sleep apnea Chronic low back pain Obesity (BMI 30-39.9) Atrial fibrillation Psoriasis Hypercholesterolemia Left wrist tendinitis Surgical History H/O umbilical hernia repair H/O arthroscopic knee surgery History of repair of atrial septal defect H/O spinal fusion Family History Father No problems noted. Mother No problems noted. 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 Cognitive needs: No Hearing needs: No Vision needs: No Coding
[2023-08-06 13:28] VITALS: BP 122/84; PULSE 87; O2SAT 98
--- NOTE | 2023-08-06 13:28 | AM.OFFVISNUR ---
Intake Intake Visit Reasons: Sub Inj Allergies No Known Allergies Allergy (Verified 07/10/23 13:42) Coding
--- NOTE | 2023-08-06 13:36 | AM.OFFVISNUR ---
Intake Vital Signs 08/06/23 13:28 BP 122/84 Blood Pressure Location Lt radial Position Sitting Pulse 87 Pulse Source Palpation Pulse Oximetry (%) 98 Oxygen Delivery Method Room Air Intake Visit Reasons: Sub Inj Intake Note: the patient presents for a sub inj Integrity Assessor Required: No Allergies No Known Allergies Allergy (Verified 08/06/23 13:41) Do you need a note to return to daycare/school/sports/work: No Nursing Note Pt. presents for OUD F/U and sublocade injection.? Pt A&O x 4 pleasant and cooperative with care.? ? Pt. reports his recovery is going well.?He denies any breakthrough cravings/urges and also denies any SE from injection other than immediate pain following injection. T/W educated pt. on ways to decrease pain in injeciton site area including applying ice and keeping all tight clothing off the area. Pt continues to enjoy his weight loss and goes to the gym twice/day. No current health concerns shared with t/w. Pt. is motivated for recovery and is actively participating in his treatment.? T/W administered sublocade injection as per provider orders.? Pt. will F/U in clinic in four weeks for check in and injection. Office Meds Sublocade 100 mg/0.5 mL solution,extended release subcutaneous syringe Performing Provider: Nyasia Miguel CNP Performing Location: [facility] Administered by: Cyndi Tidwell RN on 08/06/23 14:04 Dose Route Admin Location Dispensed Lot Number Expiration Date [facility] Turn Out 100 mg subcut LLQ 0.5 mL [id number] 01/10/25 [address]-8 [employer]. Comments: Pt tolerated injection well. Educated on S/S of infection. Encouraged to call [facility] with questions/concerns. Coding Assessment & Plan Assessment & Plan Orders: Orders AMB Buprenorphine Injection - Patient Supplied Today F11.20 - Opioid dependence, uncomplicated
== END 2023-08-06 13:58 | disposition home or self-care (01) ==
PROVIDERS: PCP Internal Medicine
DX: F11.20 Opioid dependence, uncomplicated (principal)

== ENCOUNTER → 2023-08-06 13:15 | Outpatient (BNVA) | payer OTHER, SELFPAY | PROVIDERS: PCP Internal Medicine | DX: F11.20 Opioid dependence, uncomplicated (principal) | CPT/HCPCS: 96372; Q9992 ==

== ENCOUNTER 2023-09-03 09:08 | Outpatient (REF) | payer OTHER, SELFPAY ==
[2023-09-03 13:03] LABS: Cholesterol 116 mg/dL (<200); HDL Cholesterol 44 mg/dL (>40); LDL Cholesterol Calculated 60 mg/dL (<100); Triglycerides 62 mg/dL (<150)
== END 2023-09-03 09:09 | disposition home or self-care (01) ==
LOC: HO.HMGCLDS 09:08
PROVIDERS: PCP Internal Medicine; Visit Provider Internal Medicine
DX: E78.5 Hyperlipidemia, unspecified (principal)
CPT/HCPCS: 36415; 80061

== ENCOUNTER 2023-09-04 10:56 | Outpatient (REF) | payer OTHER, SELFPAY ==
[2023-09-04 13:37] LABS: Anion Gap 13 (12-20); Blood Urea Nitrogen 31 mg/dL (9-16); Calcium 9.5 mg/dL (8.4-10.2); Carbon Dioxide 34 mmol/L (22-29); Chloride 96 mmol/L (96-108); Estimated Glomerular Filt Rate 57; Glucose Random 108 mg/dL (60-115); Potassium 3.6 mmol/L (3.3-5.1); Sodium 139 mmol/L (135-145)
[2023-09-04 13:41] LABS: B Type Natriuretic Peptide 277 pg/mL (<100)
== END 2023-09-04 10:57 | disposition home or self-care (01) ==
LOC: HO.LAB 10:56
PROVIDERS: PCP Internal Medicine; Visit Provider Internal Medicine
DX: I42.8 Other cardiomyopathies (principal); I50.812 Chronic right heart failure
CPT/HCPCS: 36415; 80048; 83880

== ENCOUNTER 2023-09-04 10:56 | Outpatient (AMB) | payer OTHER, SELFPAY ==
--- NOTE | 2023-09-04 11:06 | MHC.OFFVIS ---
Intake Vital Signs 09/04/23 11:07 Height 5 ft 9 in Weight 167 lb 8.821 oz BMI 24.7 BP 122/68 Blood Pressure Location Lt brachial Position Sitting Pulse 74 Intake Visit Reasons: follow-up Intake Note: follow up Stacker Driver Required: No Accompanied by: Self / Same As Patient Allergies No Known Allergies Allergy (Verified 09/04/23 11:08) Medication List - Last Reconciled 09/04/23 by Manjit Giles MD apixaban (Eliquis) 5 mg PO BID bisacodyl (Dulcolax (bisacodyl)) 20 mg (4 x 5 mg) PO ONCE 1 day buprenorphine ER (Sublocade) 100 mg subcutaneously q4 weeks; fenofibrate 160 mg PO DAILY furosemide 40 mg (2 x 20 mg) PO DAILY 90 days guselkumab (Tremfya) mg subcut metoprolol tartrate 50 mg PO BID 90 days polyethylene glycol 3350 (Miralax) 238 grams PO ONCE PRN 1 day simvastatin 40 mg PO BEDTIME HPI HPI Comments History of Present Illness Details Channing is here for followup regarding various issues including atrial fibrillation, atrial septal defect. He has a history of secundum atrial septal defect. He underwent surgical closure of the same in 2008. He also had postoperative atrial fibrillation but it seems that that probably resolved after the initial postoperative. However we had seen him in 2014 and at that time he was in atrial fibrillation. Cardioversion was recommended at that time, but we did not see him back till 2020. Overall, intermittent followups. In the last few months, he is lost lot of weight. He lost actually more than 100 lb. He is working out regularly with absolutely no issues. He is also cleaned up his diet quite a bit. From cardiac standpoint, he has got no symptoms whatsoever. No angina or shortness of breath or leg swelling or in fact anything of that nature. [facility] Medical History (Updated 05/13/23 @ 10:09 by Yamel Johnston PA-C) Synovial cyst of popliteal space [Lyle], left knee COVID-19 virus infection Biceps tendon rupture Atrial septal defect Obstructive sleep apnea Chronic low back pain Obesity (BMI 30-39.9) Atrial fibrillation Psoriasis Hypercholesterolemia Left wrist tendinitis Surgical History H/O umbilical hernia repair H/O arthroscopic knee surgery History of repair of atrial septal defect H/O spinal fusion Family History Father No problems noted. Mother No problems noted. 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 Cognitive needs: No Hearing needs: No Vision needs: No Review of Systems Const Denies weakness ENT Denies dizziness Card Denies chest pain, Denies chest pain with activity, Denies syncope, Denies rapid heart rate, Denies pedal edema, Denies edema, Denies leg edema, Denies lightheadedness, Denies palpitations, Denies dyspnea, Denies dyspnea on exertion and Denies orthopnea Resp Denies cough, Denies dyspnea and Denies dyspnea on exertion GI Denies hematochezia and Denies change in stool character Musc Denies abnormal gait, Denies muscle cramps, Denies muscle weakness, Denies numbness, Denies radiating pain into limb and Denies tingling Neuro Denies abnormal gait, Denies dizziness, Denies syncope, Denies numbness, Denies tingling and Denies weakness Endo Denies palpitations Physical Exam Vital Signs: Last Vital Signs Pulse 74 09/04/23 11:07 BP 122/68 09/04/23 11:07 BMI result Body Mass Index 24.7 Const General: comfortable and no acute distress Orientation/consciousness: patient oriented x3 HEENT Other: Unremarkable Head: Yes normal to inspection Neck Neck: Yes normal visual inspection Chest Chest palpation & inspection: normal inspection of the chest Resp Auscultation: clear to auscultation bilaterally Cardio Palpation: normal PMI Heart sounds: S1 normal heart sound present, S2 normal heart sound present, no gallops, no murmurs and no rubs GI Palpation (GI): Soft to palpation Back/Spine/Pelvis Other: unremarkable Skin General skin exam: no rashes or lesions noted Neuro General: patient oriented x3 Extrem General: Yes normal to inspection Psych Mental Status: mental status grossly normal Assessment & Plan Assessment & Plan (1) Chronic right heart failure: Code(s): I50.812 - Chronic right heart failure Plan: Continue diuretics as currently on. Seems well controlled. (2) NICM (nonischemic cardiomyopathy): Code(s): I42.8 - Other cardiomyopathies Plan: In the last echocardiogram, LVEF 30-35%. This is lower than before. Etiology could be atrial fibrillation. Less likely that he has any obstructive CAD. We will get a stress test look for any ischemic findings. Preoperative cardiac catheterization many years ago showed normal coronaries. Follow up echocardiogram. For medications, we can change the metoprolol tartrate to succinate. Check kidney function. Based on this, start Entresto. Then possibly other meds like Farxiga. (3) Status post atrial septal defect closure: Code(s): Z87.74 - Personal history of (corrected) congenital malformations of heart and circulatory system Plan: Stable. (4) Persistent atrial fibrillation: Code(s): I48.19 - Other persistent atrial fibrillation Plan: He has had the atrial fibrillation for more than a decade. Highly unlikely to convert to sinus especially with severely dilated atria. Rate control only. (5) Essential hypertension: Code(s): I10 - Essential (primary) hypertension Plan: Stable. (6) Obstructive sleep apnea: Code(s): G47.33 - Obstructive sleep apnea (adult) (pediatric) Plan: Most likely it improved as he has lost lot of weight. (7) Morbid obesity: Code(s): E66.01 - Morbid (severe) obesity due to excess calories Plan: Overall, he has lost more than 100 lb in weight. Recommend that he keeps thinks this way. Orders: Orders NM cardiolite stress test Today R07.2 - Precordial pain Basic Metabolic Panel Today I42.8 - Other cardiomyopathies B Type Natriuretic Peptide Today I42.8 - Other cardiomyopathies CA stress test Today R07.2 - Precordial pain CA echo transthoracic complete Today I42.8 - Other cardiomyopathies Medications: New metoprolol succinate ER (Toprol XL) 50 mg PO DAILY 90 tabs 3RF I42.8 - Other cardiomyopathies Discontinued metoprolol tartrate Discontinued Reason: Doctor's Order 50 mg PO BID 90 days 180 tabs 2RF Coding Level of Care Code Est Pt Level 4 (38573) Diagnoses Chronic right heart failure I50.812 NICM (nonischemic cardiomyopathy) I42.8 Status post atrial septal defect closure Z87.74 Persistent atrial fibrillation I48.19 Essential hypertension I10 Obstructive sleep apnea G47.33 Morbid obesity E66.01
[2023-09-04 11:07] VITALS: BP 122/68; PULSE 74; BMI 24.7
== END 2023-09-04 11:33 | disposition home or self-care (01) ==
PROVIDERS: PCP Internal Medicine; Visit Provider Internal Medicine
DX: I50.812 Chronic right heart failure (principal); I42.8 Other cardiomyopathies; Z87.74 Personal history of (corrected) congenital malformations of heart and circulatory system; I48.19 Other persistent atrial fibrillation; I10 Essential (primary) hypertension; G47.33 Obstructive sleep apnea (adult) (pediatric); E66.01 Morbid (severe) obesity due to excess calories
CPT/HCPCS: 99214

== ENCOUNTER 2023-09-05 09:38 | Outpatient (AMB) | payer OTHER, SELFPAY ==
--- NOTE | 2023-09-05 09:39 | MHC.AM.SUB ---
Intake Intake Visit Reasons: Sub Inj Allergies No Known Allergies Allergy (Verified 09/04/23 11:08) [facility] Medical History (Updated 05/13/23 @ 10:09 by Yamel Johnston PA-C) Synovial cyst of popliteal space [Lyle], left knee COVID-19 virus infection Biceps tendon rupture Atrial septal defect Obstructive sleep apnea Chronic low back pain Obesity (BMI 30-39.9) Atrial fibrillation Psoriasis Hypercholesterolemia Left wrist tendinitis Surgical History H/O umbilical hernia repair H/O arthroscopic knee surgery History of repair of atrial septal defect H/O spinal fusion Family History Father No problems noted. Mother No problems noted. 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 Cognitive needs: No Hearing needs: No Vision needs: No Coding
--- NOTE | 2023-09-05 09:44 | AM.OFFVISNUR ---
Intake Vital Signs 09/05/23 09:45 BP 118/76 Blood Pressure Location Lt radial Position Sitting Pulse 89 Pulse Source Pulse Oximeter Pulse Oximetry (%) 97 Oxygen Delivery Method Room Air Intake Visit Reasons: Sub Inj Intake Note: the patient is here for a sub inj Highway Maintenance Technician Required: No Allergies No Known Allergies Allergy (Verified 09/05/23 09:47) Do you need a note to return to daycare/school/sports/work: No Nursing Note Pt. presents for sublocade injection.? Pt A&O x 4 pleasant and cooperative with care.?He denies any breakthrough cravings/urges and also denies any SE from injection other than immediate pain following injection. T/W educated pt. on ways to decrease pain in injeciton site area including applying ice and keeping all tight clothing off the area. Pt inquired about how to stop medication, and if there is withdrawl side effects with doing so, we talked about how this works and encouraged him to talk to Nyasia to make a plan next visit.? Pt. will F/U in clinic in four weeks for check in with provider and injection. Office Meds Sublocade 100 mg/0.5 mL solution,extended release subcutaneous syringe Performing Provider: Roseann Guerra NP Performing Location: [facility] Administered by: Mercedes Sorensen RN on 09/05/23 09:46 Dose Route Admin Location Dispensed Lot Number Expiration Date [facility] Crabber 100 mg subcut RLQ 0.5 mL [id number] 09/12/24 [address]-5 [employer]. Coding Assessment & Plan Assessment & Plan Orders: Orders AMB Buprenorphine Injection - Patient Supplied Today F11.20 - Opioid dependence, uncomplicated
[2023-09-05 09:45] VITALS: BP 118/76; PULSE 89; O2SAT 97
== END 2023-09-05 10:04 | disposition home or self-care (01) ==
PROVIDERS: PCP Internal Medicine
DX: F11.20 Opioid dependence, uncomplicated (principal)

== ENCOUNTER → 2023-09-05 09:38 | Outpatient (BNVA) | payer OTHER, SELFPAY | PROVIDERS: PCP Internal Medicine | DX: F11.20 Opioid dependence, uncomplicated (principal) | CPT/HCPCS: 96372; Q9992 ==

== ENCOUNTER 2023-10-01 09:19 | Outpatient (AMB) | payer OTHER, SELFPAY ==
--- NOTE | 2023-10-01 09:30 | MHC.AM.SUB ---
Intake Vital Signs 10/01/23 09:39 BP 120/80 Blood Pressure Location Rt brachial Position Sitting Respiration 19 Pulse 62 Pulse Oximetry (%) 96 Intake Visit Reasons: MAT Visit/Sub Inj Intake Note: The patient presents for a sub inj Shot Lighter Required: No Allergies No Known Allergies Allergy (Verified 10/01/23 09:30) Do you need a note to return to daycare/school/sports/work: No HPI MAT Visit/Sub Inj HPI Details Patient presents for follow and sublocade injection Patient asking questions related to discontinuing buprenorphine using Sublocade. 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 [facility] Medical History (Updated 05/13/23 @ 10:09 by Ymael Johnston PA-C) Synovial cyst of popliteal space [Lyle], left knee COVID-19 virus infection Biceps tendon rupture Atrial septal defect Obstructive sleep apnea Chronic low back pain Obesity (BMI 30-39.9) Atrial fibrillation Psoriasis Hypercholesterolemia Left wrist tendinitis Surgical History H/O umbilical hernia repair H/O arthroscopic knee surgery History of repair of atrial septal defect H/O spinal fusion Family History Father No problems noted. Mother No problems noted. 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 Cognitive needs: No Hearing needs: No Vision needs: No Review of Systems Const Reports as per HPI and Reports no additional complaints Physical Exam Vital Signs: Last Vital Signs Pulse 62 10/01/23 09:39 Resp 19 10/01/23 09:39 BP 120/80 10/01/23 09:39 Pulse Ox 96 10/01/23 09:39 Const General: cooperative, healthy appearing and no acute distress Nutritional Appearance: average body habitus Orientation/consciousness: patient oriented x3 Limitations: no limitations Neuro General: patient oriented x3 Psych Appearance: well kempt Speech and movement: Clear speech present Affect: normal affect Attitude: cooperative Thought process: Normal thought process present Thought content: Normal thought content present Insight: Good insight present (Psych) Judgement: Good judgement present (Psych) Office Meds Sublocade 100 mg/0.5 mL solution,extended release subcutaneous syringe Performing Provider: Nyasia Miguel CNP Performing Location: [facility] [[email or web address] Administered by: Mercedes Sorensen RN on 10/01/23 09:44 Dose Route Admin Location Dispensed Lot Number Expiration Date [facility] Joint Supervisor 100 mg subcut LLQ 0.5 mL [id number] 09/12/24 [address]-3 [employer] Comments: Patient tolerated injection with no stated or noted side effects. He verbally agrees to call [facility] with any comments or concerns. Assessment & Plan Assessment & Plan (1) Opioid dependence: Code(s): F11.20 - Opioid dependence, uncomplicated Qualifiers: Substance use status: uncomplicated Qualified Code(s): F11.20 - Opioid dependence, uncomplicated Plan: tolerated injection follow up 4 weeks or longer if patient wishes to increase length of time encouraged to call office with any questions or concerns prior to next appt Orders: Orders AMB Buprenorphine Injection - Patient Supplied Today F11.20 - Opioid dependence, uncomplicated Coding Level of Care Code Est Pt Level 3 (24468) Diagnoses Uncomplicated opioid dependence F11.20 Substance use status: uncomplicated
[2023-10-01 09:39] VITALS: BP 120/80; PULSE 62; RESP 19; O2SAT 96
== END 2023-10-01 10:43 | disposition home or self-care (01) ==
PROVIDERS: PCP Internal Medicine; Visit Provider Nurse Practitioner Psychiatric/Mental Health
DX: F11.20 Opioid dependence, uncomplicated (principal)
CPT/HCPCS: 99213

== ENCOUNTER → 2023-10-01 09:19 | Outpatient (BNVA) | payer OTHER, SELFPAY | PROVIDERS: PCP Internal Medicine; Visit Provider Nurse Practitioner Psychiatric/Mental Health | DX: F11.20 Opioid dependence, uncomplicated (principal) | CPT/HCPCS: 96372; Q9992 ==

== ENCOUNTER → 2023-10-29 08:53 | Outpatient (REF) | payer OTHER, SELFPAY ==
--- NOTE | 2023-10-29 08:56 | CA_ITS ---
Transthoracic Echocardiogram Patient (Last, First, Middle): Channing Bauman F Gender: Male Date of : 1965 Age: 58 Procedure Date: 10/29/2023 Procedure Type: Transthoracic Echocardiogram Location: OP Height: 175.26 cm Weight: 74.39 kg BSA: 1.90 m2 Heart Rate: bpm BP: 124 / 80 mmHg Rattle Leak And Squeak Repairer: Referring MD: Manjit Giles MD Symptoms: I42.8 - Other cardiomyopathies Study Quality: Adequate ECG Rhythm: Atrial Fibrillation Conclusions: - The left ventricular systolic function is low normal. The visually estimated ejection fraction is between 50-55%. - Severely increased right ventricular cavity size. - Severe biatrial enlargement. - No obvious valvular pathology seen on this study. Findings Left Ventricle Normal left ventricular cavity size. There is mildly increased left ventricular wall thickness. The left ventricular systolic function is low normal. The visually estimated ejection fraction is between 50-55%. Diastolic function is indeterminate on the basis of available data. There is moderate septal asymmetric hypertrophy. Right Ventricle Severely increased right ventricular cavity size. There is low normal right ventricular systolic function. Atria Severe biatrial enlargement. There is no evidence of interatrial shunt by color Doppler. Aortic Valve There is a normal trileaflet aortic valve. There is no aortic valve stenosis. There is trace (trivial) aortic valve regurgitation. Mitral Valve The mitral valve appears normal. There is trace mitral valve regurgitation. There is no mitral valve stenosis. Pulmonic Valve There is trace pulmonic valve regurgitation. Tricuspid Valve There is trace tricuspid valve regurgitation. There is no evidence of pulmonary hypertension. Great Vessels The asc aorta is normal in size. Venous The inferior vena cava is mildly dilated and collapses greater than 50% with inspiration. Pericardium/Pleural There is no evidence of pericardial effusion. Prior Study Comparison Changes noted compared to prior study dated: 05/24/2023. LVEF improved. Recommendations, Care & Conclusions No obvious valvular pathology seen on this study. Measurements 2D Linear Measurements IVSd: 1.32 0.6-0.9/0.6-1.0 cm LVIDd: 4.79 3.9-5.3/4.2-5.9 cm LVIDd Index: 2.52 2.4-3.2/2.2-3.1 cm/m2 LVIDs: 3.27 2.0-3.6 cm LVPWd: 1.24 0.7-1.1 cm Ao Root: 4.30 2.1-3.5 cm LA Diam: 5.30 2.7-3.8/3.0-4.0 cm LAIDs Index: 2.79 1.5-2.3 cm/m2 LV Mass: 298.65 67-162/88-224 g LV Mass Index: 157.18 43-95/49-115 g/m2 LVOT Diam: 2.30 3.0+(-)1.3 cm 2D Systolic Function EF 4C: 56.40 >55% EF 2C: 55.90 >55% EF BiP: 54.80 >55% Mitral Valve MV Pk E: 0.73 MV Decel Time: 352.00 E'Lateral: 14.50 E'Medial: 9.90 E/E' Med: 7.40 E/E' Lat: 5.10 PHT: 103.00 MVA PHT: 2.14 Decel Carson: 2.08 Aortic Valve AoV Pk Luis A: 0.86 AoV Mn Luis A: 0.65 AoV VTI: 0.22 AoV Pk Grad: 3.00 Aov Mn Grad: 2.00 TIA Cont.VTI: 3.47 LVOT LVOT Pk Luis A: 0.77 LVOT Mn Luis A: 0.49 LVOT VTI: 0.18 LVOT Pk Grad: 2.00 LVOT Mn Grad: 1.00 LVOT Diam: 2.30 LVOT Area: 4.15 Diastolic Function MV Pk E: 0.73 E'Medial: 9.90 E/E' Med: 7.40 E' Laterial: 14.50 E/E' Lat: 5.10 Right Ventricle TAPSE (mm): 21.00 TVS' Luis A: 10.00 Tricuspid Valve TR Pk Luis A: 2.19 TR Pk Grad: 19.00 RA Press: 15.00 RVSP: 34.00 Great Vessels Aorta Ao Root-2D: 4.30 2.0-3.7 cm Ao Asc: 4.30 2.1-3.4 cm Ao Arch: 3.20 Pulmonary Valve PV Pk Luis A: 0.69 Peak PV Grad: 2.00 Updated in Other Vendor System with Status of Final Manjit Giles MD electronically signed on 10/31/2023 12:50:30 PM with status of Final
== END ==
LOC: HO.CARD 08:53
PROVIDERS: PCP Internal Medicine; Visit Provider Internal Medicine
DX: I42.8 Other cardiomyopathies (principal)
CPT/HCPCS: 93306

== ENCOUNTER → 2023-10-29 08:56 | Outpatient (BNV) | payer OTHER, SELFPAY | PROVIDERS: PCP Internal Medicine; Visit Provider Internal Medicine | DX: I42.8 Other cardiomyopathies (principal) | CPT/HCPCS: 93306 ==

== ENCOUNTER 2023-10-31 09:20 | Outpatient (AMB) | payer OTHER, SELFPAY ==
[2023-10-31 09:30] VITALS: BP 120/70; PULSE 80; RESP 19
--- NOTE | 2023-10-31 09:30 | AM.OFFVISNUR ---
Intake Vital Signs 10/31/23 09:30 BP 120/70 Blood Pressure Location Rt radial Position Sitting Respiration 19 Pulse 80 Pulse Source Pulse Oximeter Oxygen Delivery Method Room Air Intake Visit Reasons: Sub Inj Allergies No Known Allergies Allergy (Verified 10/01/23 09:30) Nursing Note Patient in office for injection today, he is alert and oriented x4, in good spirits, smiling and speaking in clear/full sentenes. Denies any cravings, denies any complications from previous injections. Office Meds Sublocade 100 mg/0.5 mL solution,extended release subcutaneous syringe Performing Provider: Nyasia Miguel CNP Performing Location: [facility] Administered by: Mercedes Sorensen RN on 10/31/23 09:32 Dose Route Admin Location Dispensed Lot Number Expiration Date [facility] National Sales Representative 100 mg subcut rlq 0.5 mL [id number] 10/10/24 [address]-5 [employer]. Coding Assessment & Plan Assessment & Plan Orders: Orders AMB Buprenorphine Injection - Patient Supplied Today F11.20 - Opioid dependence, uncomplicated
== END 2023-10-31 09:55 | disposition home or self-care (01) ==
PROVIDERS: PCP Internal Medicine
DX: F11.20 Opioid dependence, uncomplicated (principal)

== ENCOUNTER → 2023-10-31 09:20 | Outpatient (BNVA) | payer OTHER, SELFPAY | PROVIDERS: PCP Internal Medicine | DX: F11.20 Opioid dependence, uncomplicated (principal) | CPT/HCPCS: 96372; Q9992 ==

== ENCOUNTER 2023-11-14 08:34 | Outpatient (AMB) | payer OTHER, SELFPAY ==
--- NOTE | 2023-11-14 08:37 | A.OFFVIS_ITS ---
Intake Intake Visit Reasons: New Pt - neck pain Intake Note: Pt presents to the office today for a new patient for neck pain. Pt states the pain started about 4 months ago and has gotten worse. Pt states the neck pain is worse on his right side. Pt states he is unable to look up without pain. Allergies No Known Allergies Allergy (Verified 11/14/23 08:37) Medication List - Last Reconciled 11/14/23 by Lina Mckeon MD apixaban (Eliquis) 5 mg PO BID bisacodyl (Dulcolax (bisacodyl)) 20 mg (4 x 5 mg) PO ONCE 1 day fenofibrate 160 mg PO DAILY furosemide 40 mg (2 x 20 mg) PO DAILY 90 days metoprolol succinate ER (Toprol XL) 50 mg PO DAILY polyethylene glycol 3350 (Miralax) 238 grams PO ONCE PRN 1 day sacubitril-valsartan 24-26 mg (Entresto) 1 tab PO BID 90 days simvastatin 40 mg PO BEDTIME HPI HPI Comments History of Present Illness Details 2 months of newer neck pain, started a s he was going to gym twice a day, attributed to trying to keep head up while he is on treadmill. When you look up, feels strained on neck but non radicular and no paresthesia. Feels better with looking down. Improved with rest. He does have repetition for shoulders/arms with 10-15 lbs. History of surgery for scoliosis, Martinez rods, thinks he had fracture of the rods on lower back. History of cardiac surgery. On Eliquis. No numbness. No weakness. [facility] Medical History (Updated 11/14/23 @ 09:22 by Lina Mckeon MD) Cervical spondylosis Synovial cyst of popliteal space [Lyle], left knee COVID-19 virus infection Biceps tendon rupture Atrial septal defect Obstructive sleep apnea Chronic low back pain Obesity (BMI 30-39.9) Atrial fibrillation Psoriasis Hypercholesterolemia Left wrist tendinitis Surgical History H/O umbilical hernia repair H/O arthroscopic knee surgery History of repair of atrial septal defect H/O spinal fusion Family History Father No problems noted. Mother No problems noted. 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 Patient was appropriately conversant and oriented. Good historian. MSK: Right thoracic convexity. Asymmetric torso. Loss of cervical lordosis. No pain with palpation over the neck musculature. Crepitus felt, trapezius (?), with lateral neck rotation. Limited cervical extension. Spurling's sign negative. Bilateral shoulder, elbow and wrist ROM WNL. No ligamentous laxity or crepitance. No increased effusion. Strength is 5/5 in all muscle groups tested. No increased tone noted. Neurological: Neurologic examination of the upper and lower extremities was nonfocal with intact sensation, muscle stretch reflexes and without focal motor deficits . Mckeon?s negative bilaterally. Babinski was down going bilaterally. Clonus was negative. Gait is non-antalgic without loss of balance. Results Reviewed Results Reviewed: I independently reviewed the results of the following: Xray done in the office today shows loss of lordosis which probably stems from history of severe scoliosis plus additional muscular strain. Showed spondylosis, loss of disc height and spurs. Await final reading. Showed images the patient I reviewed records from the following: Pain management 2020 for back pain Recent Addiction Medicine notes Recent cardiology note Assessment & Plan Assessment & Plan (1) Cervical spondylosis: Code(s): M47.812 - Spondylosis without myelopathy or radiculopathy, cervical region Plan Xray done in the office today shows loss of lordosis which probably stems from history of severe scoliosis plus additional muscular strain. Showed spondylosis, loss of disc height and spurs. He has baseline limited neck extension. No signs of myelopathy or radiculopathy on exam. We talked about PT which he defers because he already goes to the gym; we talked about adjustment/modification of his activities to avoid need for neck extension; we talked about proper warm up prior to exercise. Thought about facet injections or Botox injection but he would like to avoid any invasive procedures due to history of Martinez rods. Await final reading of xray. Will keep him posted. Assessment and plan discussed with patient, and patient was agreeable. All questions were answered thoroughly. Lina Mckeon MD, ENDY Board Certified, [place] Board [employer] and Rehabilitation (ABPMR) Board Certified, [place] Board of Electrodiagnostic Medicine (ABEM) Orders: Orders XR cervical spine 3V Today M54.2 - Cervicalgia Coding Level of Care Code New Pt Level 4 (76765) Diagnoses Cervical spondylosis M47.812
== END 2023-11-14 09:26 | disposition home or self-care (01) ==
PROVIDERS: PCP Internal Medicine; Visit Provider Physical Medicine & Rehabilitation
DX: M47.812 Spondylosis without myelopathy or radiculopathy, cervical region (principal)
CPT/HCPCS: 99204

== ENCOUNTER 2023-11-14 09:39 | Outpatient (REF) | payer OTHER, SELFPAY ==
--- NOTE | ~2023-11-14 | XR_ITS ---
EXAMINATION: XR cervical spine CLINICAL INFORMATION: Cervicalgia COMPARISON: None TECHNIQUE: 3 views of the cervical spine were obtained. FINDINGS: The cervical spine is visualized to the level of C6-C7 on the lateral view. Dextroconvex curvature of thoracic spine. Partially imaged Martinez shahid. 3 mm of anterolisthesis of C2 on C3 and C3 on C4. Vertebral body heights are maintained. Moderate to advanced degenerative disc disease worst at C5-C6 and C6-C7 with multilevel loss of disc space height, disc osteophyte complexes and facet arthropathy.. Lateral masses of C1 are well aligned on C2. Visualized portion of the dens is intact. No prevertebral soft tissue swelling. XR/XR cervical spine 3V IMPRESSION: * Dextroconvex curvature of thoracic spine. Partially imaged Martinez shahid. * 3 mm of anterolisthesis of C2 on C3 and C3 on C4. * Moderate to advanced degenerative disc disease worst at C5-C6 and C6-C7 with multilevel loss of disc space height, disc osteophyte complexes and facet arthropathy.
== END 2023-11-14 09:40 | disposition home or self-care (01) ==
LOC: HO.HOSX 09:39
PROVIDERS: Visit Provider Physical Medicine & Rehabilitation
DX: M54.2 Cervicalgia (principal)
CPT/HCPCS: 72040

== ENCOUNTER 2023-11-28 09:05 | Outpatient (AMB) | payer OTHER, SELFPAY ==
--- NOTE | 2023-11-28 09:02 | AM.OFFVISNUR ---
Intake Vital Signs 11/28/23 09:08 BP 128/80 Blood Pressure Location Lt brachial Position Sitting Pulse 72 Pulse Source Pulse Oximeter Pulse Oximetry (%) 99 Oxygen Delivery Method Room Air Intake Visit Reasons: Sub Inj Allergies No Known Allergies Allergy (Verified 11/28/23 09:02) Nursing Note Patient to office today for monthly injection, in good spirits, states he is headed to a [employer] game with after appt. Alert and oriented x4, denies any cravings, doing well. Office Meds Sublocade 100 mg/0.5 mL solution,extended release subcutaneous syringe Performing Provider: Nyasia Miguel CNP Performing Location: [facility] Administered by: Mercedes Sorensen RN on 11/28/23 12:59 Dose Route Admin Location Dispensed Lot Number Expiration Date [facility] Garnett Machine Operator 100 mg subcut LLQ 0.5 mL [id number] 10/10/24 [address]-2 [employer]. Coding Assessment & Plan Assessment & Plan Orders: Orders AMB Buprenorphine Injection - Patient Supplied Today F11.20 - Opioid dependence, uncomplicated
[2023-11-28 09:08] VITALS: BP 128/80; PULSE 72; O2SAT 99
== END 2023-11-28 10:02 | disposition home or self-care (01) ==
PROVIDERS: PCP Internal Medicine
DX: F11.20 Opioid dependence, uncomplicated (principal)

== ENCOUNTER → 2023-11-28 09:05 | Outpatient (BNVA) | payer OTHER, SELFPAY | PROVIDERS: PCP Internal Medicine | DX: F11.20 Opioid dependence, uncomplicated (principal) | CPT/HCPCS: 96372; Q9992 ==

== ENCOUNTER → 2023-12-06 08:03 | Outpatient (REF) | payer OTHER, SELFPAY | LOC: HO.CARD 08:03 | PROVIDERS: PCP Internal Medicine; Visit Provider Internal Medicine | DX: Z13.89 Encounter for screening for other disorder (principal) ==

== ENCOUNTER 2023-12-26 09:13 | Outpatient (AMB) | payer OTHER, SELFPAY ==
--- NOTE | 2023-12-26 09:12 | A.OFFVISCC_ITS ---
Vital Signs 12/26/23 09:13 BP 128/84 Blood Pressure Location Lt brachial Position Sitting Pulse 79 Pulse Source Pulse Oximeter Pulse Oximetry (%) 99 Oxygen Delivery Method Room Air Intake Visit Reasons: MAT visit/Sub Inj Allergies No Known Allergies Allergy (Verified 11/28/23 09:02) HPI HPI MAT visit/Sub Inj: Details: Patient presents for follow up and sublocade injection tolerating injection --likes not having to take medication every day denies any side effects no questions or concerns at this time [facility] Medical History (Updated 11/22/23 @ 15:48 by Lina Mckeon MD) Cervical spondylosis Synovial cyst of popliteal space [Lyle], left knee COVID-19 virus infection Biceps tendon rupture Atrial septal defect Obstructive sleep apnea Chronic low back pain Obesity (BMI 30-39.9) Atrial fibrillation Psoriasis Hypercholesterolemia Left wrist tendinitis Surgical History H/O umbilical hernia repair H/O arthroscopic knee surgery History of repair of atrial septal defect H/O spinal fusion Family History Father No problems noted. Mother No problems noted. 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 Cognitive needs: No Hearing needs: No Vision needs: No Review of Systems Const Reports as per HPI and Reports no additional complaints Physical Exam Vital Signs: Last Vital Signs Pulse 79 12/26/23 09:13 BP 128/84 12/26/23 09:13 Pulse Ox 99 12/26/23 09:13 Oxygen Delivery Method Room Air 12/26/23 09:13 Const General: cooperative, healthy appearing and no acute distress Nutritional Appearance: average body habitus Orientation/consciousness: patient oriented x3 Limitations: no limitations Neuro General: patient oriented x3 Psych Appearance: well kempt Speech and movement: Clear speech present Affect: normal affect Attitude: cooperative Thought process: Normal thought process present Thought content: Normal thought content present Insight: Good insight present (Psych) Judgement: Good judgement present (Psych) Office Meds Sublocade 100 mg/0.5 mL solution,extended release subcutaneous syringe Performing Provider: Nyasia Miguel CNP Performing Location: [facility] Administered by: Mercedes Sorensen RN on 12/26/23 09:26 Dose Route Admin Location Dispensed Lot Number Expiration Date [employer] Drum Straightener 100 mg subcut 0.5 mL [id number] 10/10/24 [address]-6 [employer] Assessment & Plan Assessment & Plan (1) Opioid dependence: Code(s): F11.20 - Opioid dependence, uncomplicated Category: Medical Qualifiers: Substance use status: uncomplicated Qualified Code(s): F11.20 - Opioid dependence, uncomplicated Plan: * tolerated injection * follow up 4 weeks or longer if patient wishes to increase length of time * encouraged to call office with any questions or concerns prior to next appt Orders: Orders AMB Buprenorphine Injection - Patient Supplied 12/26/23 F11.20 - Opioid dependence, uncomplicated
[2023-12-26 09:13] VITALS: BP 128/84; PULSE 79; O2SAT 99
== END 2023-12-26 09:54 | disposition home or self-care (01) ==
PROVIDERS: PCP Internal Medicine; Visit Provider Nurse Practitioner Psychiatric/Mental Health
DX: F11.20 Opioid dependence, uncomplicated (principal)
CPT/HCPCS: 99213

== ENCOUNTER → 2023-12-26 09:13 | Outpatient (BNVA) | payer OTHER, SELFPAY | PROVIDERS: PCP Internal Medicine; Visit Provider Nurse Practitioner Psychiatric/Mental Health | DX: F11.20 Opioid dependence, uncomplicated (principal) | CPT/HCPCS: 96372; Q9992 ==

== ENCOUNTER 2024-01-23 09:02 | Outpatient (AMB) | payer OTHER, SELFPAY ==
--- NOTE | 2024-01-23 09:01 | AM.OFFVISNUR ---
Intake Vital Signs 01/23/24 09:05 BP 120/70 Blood Pressure Location Rt brachial Position Sitting Respiration 20 Pulse 89 Pulse Source Pulse Oximeter Pulse Oximetry (%) 96 Intake Visit Reasons: Sub Inj Allergies No Known Allergies Allergy (Verified 11/28/23 09:02) Nursing Note Patient to office today for injection, he is alert and oriented x4, denies any complications with previous injection, denies any cravings and recovery is going well. Office Meds Sublocade 100 mg/0.5 mL solution,extended release subcutaneous syringe Performing Provider: Nyasia Miguel CNP Performing Location: [facility] Administered by: Mercedes Sorensen RN on 01/23/24 09:07 Dose Route Admin Location Dispensed Lot Number Expiration Date [facility] Linoleum Layer 100 mg subcut LLQ 0.5 mL [id number] 10/10/24 [address]-8 [employer]. Coding Assessment & Plan Assessment & Plan Orders: Orders AMB Buprenorphine Injection - Patient Supplied Today F11.20 - Opioid dependence, uncomplicated Medications: New Sublocade ER (buprenorphine) 100 mg (0.5 mL) subcut ONCE 0.5 mL 0RF NS F11.20 - Opioid dependence, uncomplicated
[2024-01-23 09:05] VITALS: BP 120/70; PULSE 89; RESP 20; O2SAT 96
== END 2024-01-23 10:13 | disposition home or self-care (01) ==
PROVIDERS: PCP Internal Medicine
DX: F11.20 Opioid dependence, uncomplicated (principal)

== ENCOUNTER → 2024-01-23 09:02 | Outpatient (BNVA) | payer OTHER, SELFPAY | PROVIDERS: PCP Internal Medicine | DX: F11.20 Opioid dependence, uncomplicated (principal) | CPT/HCPCS: 96372; Q9992 ==

== ENCOUNTER 2024-01-28 16:09 | Outpatient (REF) | payer OTHER, SELFPAY ==
--- NOTE | ~2024-01-28 | MR_ITS ---
EXAMINATION: MR CERVICAL SPINE WITHOUT CONTRAST CLINICAL INFORMATION: 58-year-old with neck pain. Spondylosis without myelopathy or radiculopathy, cervical region. COMPARISON: None available. TECHNIQUE: MRI of the cervical spine was obtained using routine sequences without contrast. TECHNICAL NOTE: Very limited study due to multiple factors including severe scoliosis, presence of Martinez rods with metallic artifact, motion artifact and patient positioning limitations with associated hardware constraints with signal poor images. FINDINGS: ALIGNMENT: There is marked S-shaped cervicothoracic scoliotic curvature, convex to the left at approximately C4-C5. There is lordotic reversal centered at C6. There is 2 to 3 mm of anterolisthesis at C3-C4 and trace anterolisthesis at C2-C3. CRANIOCERVICAL JUNCTION/C1-C2 ARTICULATIONS: Intact and aligned. VISUALIZED INTRACRANIAL STRUCTURES: Incidental prominent megacisterna magna in the posterior fossa, normal variant. VERTEBRAL BODIES: Cervical vertebral body heights are grossly well maintained. DISC SPACES AND ENDPLATES: Multilevel, advanced DDD and loss of T2-weighted intradiscal signal with associated spondylosis and multilevel Schmorl's nodes consistent with advanced discogenic degenerative changes. BONE MARROW: Multilevel mixed type I and type II degenerative marrow signal changes seen along the endplates, particularly at C3-C4 and C4-C5 and asymmetric to the right at T2-T3. Limited assessment of bone marrow signal due to multiple factors as detailed above. Subchondral marrow edema noted on both sides of the right C3-C4 facet joint, likely reflecting facet joint arthropathy and to a lesser degree at the left C3-C4 facet joint. C2-C3: Mild unroofing of the posterior disc margin is noted, with spurring of the posterior portion of the superior endplate of C3 with flattening of the ventral dural sac and ligamentum flavum thickening with mild central spinal canal stenosis. There is facet joint ankylosis bilaterally at this level with some hypertrophic changes and mild bilateral neural foraminal stenosis. C3-C4: Suspect broad-based central disc herniation at this level with impingement on the ventral spinal cord. Prominent ligamentum flavum thickening suspected with cord compression and severe central spinal canal stenosis. There is uncovertebral spurring bilaterally, with severe right and [id number] left-sided facet joint arthropathy, with periarticular edematous changes surrounding the right facet joint with subchondral marrow edema and right joint effusion consistent with inflammatory changes of the right facet joint. C4-C5: Posterior disc osteophyte complex asymmetric to the right with effacement of the dural sac, right more than left and mild right-sided ventral cord deformity/impingement, with cjme-sf-[id number] spinal canal stenosis asymmetric to the right. There is uncovertebral spurring bilaterally with predominantly right-sided facet joint arthropathy with moderate to severe right-sided and mild left-sided neural foraminal stenosis. C5-C6: Broad-based posterolateral osteophytic ridging is noted with flattening of the ventral dural sac asymmetric to the right with spurring resulting in mild ventral cord deformity, likely chronic with probable chronic spinal cord volume loss at this level. There is moderate spinal canal stenosis with probable chronic spondylitic myelomalacia. No significant facet joint arthropathy. Uncovertebral spurring noted bilaterally with mild bilateral neural foraminal stenosis. C6-C7: Broad-based disc osteophyte complex noted with flattening of the ventral dural sac without cord impingement. There is vsvi-ij-kcpulnov spinal canal stenosis. There is uncovertebral spurring bilaterally with mild right-sided neural foraminal stenosis. C7-T1: Posterolateral disc osteophyte complex noted bilaterally with right-sided facet joint arthropathy and moderate right-sided neural foraminal stenosis. Flattening of the dural sac is noted without cord impingement. Mild spinal canal stenosis is noted. SPINAL CORD: Limited assessment due to multiple limitations as detailed above. No gross cord edema or syrinx. Possible minimal spinal cord signal alteration at C3-C4 which may reflect some degree of myelopathic change/myelomalacia. EXTRACRANIAL SOFT TISSUES: The visualized extracranial head/neck soft tissues are unremarkable within the limitations of the study. Signal voids are seen within the visualized major neck vessels. No prevertebral soft tissue edema. Limited assessment. MR/MR cervical spine wo con IMPRESSION: 1. Marked S-shaped cervicothoracic scoliotic curvature, convex to the left at C4-C5 with lordotic reversal centered at C6 and mild anterolisthesis at C2-C3 and C3-C4. 2. Extensive multilevel DDD and spondylosis with multilevel disc osteophyte complexes and spondylosis with multilevel spinal canal stenosis, severe at C3-C4 with cord compression and possible minimal spinal cord signal alteration at this level which may reflect some degree of spondylitic myelomalacia. Suspect spinal cord volume loss at C5-C6 consistent with chronic spondylitic myelomalacia. 3. Multilevel bilateral uncovertebral and facet joint arthropathy with evidence of active inflammatory changes at the right C3-C4 facet joint with associated periarticular soft tissue edema and reactive bone marrow edema. Suggest correlation with serum inflammatory markers. 4. Multilevel bilateral neural foraminal stenosis as detailed by level above. 5. Limited assessment due to multiple factors as described above.
== END 2024-01-28 16:10 | disposition home or self-care (01) ==
LOC: HO.MRI 16:09
PROVIDERS: PCP Internal Medicine; Visit Provider Physical Medicine & Rehabilitation
DX: M47.812 Spondylosis without myelopathy or radiculopathy, cervical region (principal); M43.12 Spondylolisthesis, cervical region
CPT/HCPCS: 72141

== ENCOUNTER 2024-02-03 12:32 | Outpatient (REF) | payer OTHER, SELFPAY ==
--- NOTE | ~2024-02-03 | XR_ITS ---
EXAMINATION: XR CERVICAL SPINE CLINICAL INFORMATION: Cervical spinal stenosis. COMPARISON: Portions of the MRI cervical spine dated 01/28/2024; cervical spine radiographs dated 11/22/2023. TECHNIQUE: Frontal and lateral (neutral, flexion and extension) views of the cervical spine were obtained. FINDINGS: There is bony demineralization. There is a kyphotic configuration. At C2-C3, there is moderately severe disc space narrowing, with a 4 mm anterolisthesis. At C4-C5, there is moderately severe disc space narrowing, with a 4 mm anterolisthesis. At C5-C6, there is moderate disc space narrowing. At C6-C7 and C7-T1, there is marked disc space narrowing. No acute fracture or spondylolisthesis is seen. There is multi-level endplate and facet arthropathy. There is no instability with flexion or extension. The posterior elements are intact. The dens is intact. No prevertebral soft tissue swelling is seen. XR/XR cervical spine 4V IMPRESSION: 1. There is a marked kyphoscoliosis, with reversal of the normal cervical lordotic curvature. 2. Multi-level cervical degenerative disc disease is seen, most pronounced at C5-C6 and C6-C7, with degenerative disc disease is severe. 3. There is no instability with flexion or extension.
== END 2024-02-03 12:33 | disposition home or self-care (01) ==
LOC: HO.HOSX 12:32
PROVIDERS: PCP Internal Medicine; Visit Provider Physician Assistant
DX: M48.02 Spinal stenosis, cervical region (principal); M43.12 Spondylolisthesis, cervical region
CPT/HCPCS: 72050

== ENCOUNTER 2024-02-03 12:32 | Outpatient (AMB) | payer OTHER, SELFPAY ==
--- NOTE | 2024-02-03 12:52 | A.SPINEOV_ITS ---
Intake Visit Reasons: spinal cord compression Intake Note: Mr. Bauman is here today c/o severe neck pain. [employer] Required: No Allergies No Known Allergies Allergy (Verified 02/03/24 12:53) Assessment & Plan Assessment & Plan (1) Cervical spinal stenosis: Code(s): M48.02 - Spinal stenosis, cervical region Category: Medical Plan: Dear Dr Serna, Thank you for referring Mr Bauman to our office today. He is a very nice 58-year-old male with history of scoliosis, had a Martinez shahid placed when he was about 12 or 14 years old, recovered from that without incident. He had otherwise been carrying on with his usual activities in life until about 4-5 months ago he started to notice a right sided neck pain. It starts just below the occiput and radiates down along the trapezius muscle. It has gotten to the point now where he can barely straighten up his head. He mostly spends the better part of the day looking at the ground because he can not extend his head upward. He generally likes to ride a bike but has found this to be near impos sible because of the inability to track where he has going on the road. He does not report any pain radiating down his arms. Denies any tingling, numbness or myelopathic symptoms such as fine motor loss, hand weakness etc.. He does have occasional balance problems but it is not a persistent daily thing that impedes his normal activity levels. He goes to the gym twice a day, is not reporting an y loss of strength with his exercises. He did tell his biceps awhile back so he has a slightly weak or biceps on the right but other than that he denies any loss of motor coordination or any kind of reduction in power of his upper or lower extremities. To this point he has had no dedicated conservative treatment. He will take Tylenol as needed but generally tries to avoid it. He is here today urgently with an MRI showing severe spinal cord compression at C3- 4 amongst other changes. PMH: He has a coronary history positive for an ASD repair which was done through what sounds like a thoracotomy. He tells me that he also has AFib, he is on Eliquis. He has some degree of what sounds like compensated heart failure. He is followed by Cardiology here at [facility] and reports that his heart pumping power function has been going down and it is unclear why but he has not symptomatic. He used to be morbidly obese but lost 150 lb over the last few years. History of scoliosis with Martinez shahid. He had pins put in both of his feet to repair bunions. He had umbilical hernia repair. He denies any history of strokes, liver disorder, kidney disorders, previous neck surgery. Social hx: He does not smoke, drink or use any recreational drugs Medications: Simvastatin, metoprolol, fenofibrate, Entresto, Tremfya, furosemide, Eliquis and Sublocade. He has on the Sublocade because he was given Percocets last year at some point and he became toxically ill to the withdrawal symptoms from it so he takes this monthly injection to wean him off it. He has currently no longer taking the oxycodone just the monthly injections of Sublocade and will be done with that shortly. He will use occasional Tylenol as needed for pain. Allergies: No known drug allergies Physical exam: He is awake alert oriented, he has a significant scoliotic curvature when he stands up straight. His gait is fluid, no ataxia or imbalance. He has excellent strength of bilateral upper and lower extremities. There is a slight weakness of his right biceps that is known to be due to a tear in the biceps which was never repaired so it has always been slightly weaker. Reflexes are 2+ and symmetric, no clonus in the ankles, no Mckeon's sign. Imaging review: He has an x-ray done at [facility] as well as cervical MRI done at [facility] showing multiple levels of disc degeneration in the cervical spine. He has a scoliotic curvature to the cervical spine as well. There is anterior listhesis at C3-4 with some posterior ligamentous hypertrophy causing severe central canal stenosis. There may be cord signal change just beneath this level distal. He has severe disc collapse at C4-5. There is severe disc degeneration but no significant central canal stenosis at C5-6 and C6-7. On the x-ray done it appears as though there could be auto fusion at C5-6 and C6-7. Impression: 58-year-old male with history of previous Martinez shahid for scoliosis as a child, presents now with severe right-sided neck pain, inability to extend his neck without disabling pain. He has no symptoms in the upper lower extremities. His MRI however shows severe stenosis at C3-4 with a slight spondylolisthesis at this level. No myelopathic findings on exam. He takes Tylenol as needed for pain. Because of some issues with taking narcotics before, he really does not want to try to take any stronger medication than t hat. He has just really been trying to bear with the pain but it is at times disabling. I reviewed all his imaging with him including his x-ray. His situation is complicated because he has a scoliotic curvature to his neck and he has multiple levels of degenerative disc disease and the spondylolisthesis at C3-4. Typically stenosis will not cause neck pain or mechanical limitations but rather neurological symptoms which he does not have. The temptation would be to try to address this because of the severity of it, but I do not believe it would fix his symptoms. In contrast, he has multiple explanations for neck pain given the amount of degenerative changes in his neck from C3-C7, but I am not sure why it is all happening over the last few months. I believe there may be components of the anatomy we are not seeing on the MRI or the static plain film. I would like to get flexion-extension x-rays and a noncontrast CT of the cervical spine so we can better evaluate this. It looks to me on the x-ray he may have already auto fused the lower portion of his cervical spine. What I am not understanding right now is why his neck is in such a flexed posture at baseline and his inability to extend his neck upward. He tells me that just 6 months or a year ago, he would have been able to carry on a normal conversation with me looking either eye but now he has to twisting can toward his body just to make eye contact with people. Once the x-ray and CT scan are done, I will see him back in the office. I will review his imaging with Dr. Newton as well. Thank you for allowing us to care for your patient. The total time spent with this visit with this patient was 45 minutes reviewing history, physical exam, cervical MRI imaging review, and implementation of treatment plan or further diagnostic testing Benedicto Newton MD,PhD [facility] (2) Spondylolisthesis, cervical region: Code(s): M43.12 - Spondylolisthesis, cervical region Category: Medical Plan: See above Plan See above Orders: Orders XR cervical spine 4V Today M43.12 - Spondylolisthesis, cervical region, M48.02 - Spinal stenosis, cervical region CT cervical spine wo IV con Today M43.12 - Spondylolisthesis, cervical region Coding Level of Care Code New Pt Level 4 (24305) Diagnoses Cervical spinal stenosis M48.02 Spondylolisthesis, cervical region M43.12
== END 2024-02-03 14:37 | disposition home or self-care (01) ==
PROVIDERS: PCP Internal Medicine; Referring Provider Physical Medicine & Rehabilitation; Visit Provider Physician Assistant
DX: M48.02 Spinal stenosis, cervical region (principal); M43.12 Spondylolisthesis, cervical region
CPT/HCPCS: 99204

== ENCOUNTER 2024-02-11 07:17 | Outpatient (REF) | payer OTHER, SELFPAY ==
--- NOTE | ~2024-02-11 | CT_ITS ---
EXAMINATION: CT CERVICAL SPINE WITHOUT CONTRAST CLINICAL INFORMATION: 58-year-old with cervical spondylolisthesis. COMPARISON: 01/28/2024 MRI TECHNIQUE: Volumetric CT imaging of the cervical spine was done with multiplanar reformatted reconstructions. This CT examination was performed using dose optimization techniques as appropriate, variously including the following: *Automated exposure control *Adjustment of mA and/or kV according to patient size (this includes techniques or standardized protocols for targeted exams where dose is matched to indication/reason for exam; i.e. extremities or head) *Use of iterative reconstruction technique TECHNICAL NOTE: Limited exam due to kyphoscoliotic deformity with obliquity of scan planes. DLP: 346 mGy-cm FINDINGS: There is approximately 3.5 to 3 mm of spondylolisthesis at C2-C3 and C3-C4 which was noted on previous MRI. There is lordotic reversal centered at C5-C6 also noted on previous study. There is partially imaged cervicothoracic scoliotic curvature. Extensive multilevel DDD and spondylosis is noted which is described on previous MRI, with moderate to severe multilevel intervertebral disc space height loss asymmetric to the right with possible partial ankylosis on the right at C5-C6. Multilevel Schmorl's nodes are seen, some of which have vacuum phenomena. There is multilevel posterior disc osteophyte complex with right-sided ventral cord encroachment at C4-C5 and ventral cord impingement at C3-C4 as noted on previous MRI. There is ventral cord deformity at C5-C6 again noted. There is associated multilevel spinal canal stenosis, most significant at C3-C4. There is multilevel bilateral uncovertebral and facet joint arthropathy throughout the cervical spine, most severe on the right at C3-C4, where there is subchondral sclerosis and subchondral cystic change/erosion with severe joint space narrowing and probable partial ankylosis. Note that evaluation of the neural foramina is very limited on this exam due to the obliquity of the scan and body habitus. There is moderate right-sided neural foraminal stenosis at C3-C4 and C4-C5. No acute fractures are identified. There is partially imaged severe discogenic degenerative change at T2-T3, with severe facet joint arthrosis, right more than left, at this level with moderate to severe right-sided neural foraminal stenosis bilaterally. The visualized lung apices are clear. There is probable cerumen in the left EAC. Atheromatous calcification at the left carotid bulb. CT/CT cervical spine wo IV con IMPRESSION: 1. Limited exam due to obliquity of the scan planes and body habitus. 2. Multilevel spondylolisthesis at C2-C3 and C3-C4 with kyphoscoliotic deformity, similar to the previous MRI. 3. Extensive multilevel DDD, spondylosis and DJD with multilevel spinal canal stenosis, most significant at C3-C4 and C5-C6 with ventral cord impingement. 4. Multilevel bilateral neural foraminal stenosis, most severe bilaterally at T2-T3 and on the right at C3-C4 and C4-C5. 5. Severe joint space narrowing with partial ankylosis, with subchondral sclerosis and cystic/erosive changes at the right C3-C4 facet joint with bilateral C2-C3 facet joint ankylosis again noted.
== END 2024-02-11 07:18 | disposition home or self-care (01) ==
LOC: HO.CT 07:17
PROVIDERS: PCP Internal Medicine; Visit Provider Physician Assistant
DX: M43.12 Spondylolisthesis, cervical region (principal)
CPT/HCPCS: 72125

== ENCOUNTER 2024-02-20 09:30 | Outpatient (AMB) | payer OTHER, SELFPAY ==
[2024-02-20 09:17] VITALS: PULSE 63; RESP 19; O2SAT 97
--- NOTE | 2024-02-20 11:02 | AM.OFFVISNUR ---
Vital Signs 02/20/24 09:17 Blood Pressure Location Lt brachial Respiration 19 Pulse 63 Pulse Source Pulse Oximeter Pulse Oximetry (%) 97 Oxygen Delivery Method Room Air Intake Visit Reasons: Sublocade Injection Allergies No Known Allergies Allergy (Verified 02/03/24 12:53) Nursing Note Patient to clinic on 02/20/2024 for Sublocade injection. Alert and oriented x4, denies any complications with previous injection, injection today given per orders in the RLQ. Will follow up in 4 weeks with RN. Patient states he is having a consult for spine surgery soon, and will follow up with us and provider here in office if and when he is scheduled. Office Meds Sublocade 100 mg/0.5 mL solution,extended release subcutaneous syringe Performing Provider: Nyasia Miguel CNP Performing Location: [facility] Administered by: Mercedes Sorensen RN on 02/20/24 09:18 Dose Route Admin Location Dispensed Lot Number Expiration Date [facility] [employer] 100 mg subcut RLQ 0.5 mL [id number] 10/10/24 [address]-0 [employer]. Assessment & Plan Assessment & Plan Orders: Orders AMB Buprenorphine Injection - Patient Supplied 02/20/24 F11.20 - Opioid dependence, uncomplicated Medications: New Sublocade ER (buprenorphine) 100 mg (0.5 mL) subcut ONCE 0.5 mL 0RF NS F11.20 - Opioid dependence, uncomplicated
== END 2024-02-20 09:56 | disposition home or self-care (01) ==
PROVIDERS: PCP Internal Medicine
DX: F11.20 Opioid dependence, uncomplicated (principal)

== ENCOUNTER → 2024-02-20 09:30 | Outpatient (BNVA) | payer OTHER, SELFPAY | PROVIDERS: PCP Internal Medicine | DX: F11.20 Opioid dependence, uncomplicated (principal) | CPT/HCPCS: 96372; Q9992 ==

== ENCOUNTER → 2024-02-25 07:50 | Outpatient (REF) | payer OTHER, SELFPAY ==
--- NOTE | ~2024-02-25 | NM_ITS ---
Myocardial perfusion study Indication: Precordial chest pain to evaluate for myocardial ischemia Technique: The patient was brought in for a Lexiscan perfusion study on 02/25/2024. Patient performed low-level exercise and was injected 0.4 mg of Lexiscan intravenously. Within a minute of injection, 25 mCi of sestamibi was given intravenously. Images were obtained using the SPECT gamma camera interlaced with the gating device. Images were obtained in supine position. Resting perfusion study was performed on 02/28/2024. Patient was administered 25 mCi of sestamibi intravenously at rest. Images were then obtained in supine position. Images obtained with and without CT attenuation. Total DLP 148 mGy-cm. Images were processed with the software and compared side to side in short axis, horizontal long axis and vertical long axis views. Findings: Both stress and rest perfusion study were suboptimal due to intense subdiaphragmatic uptake interfering with inferior inferolateral wall uptake especially resting perfusion study The stress perfusion study showed images show moderate to severely reduced uptake in the inferior as well as inferoseptal wall of the LV myocardium. Attenuated corrected images show mildly reduced uptake in the apex as well as the inferoseptal wall of the LV myocardium.. The gated study shows normal LV systolic function with calculated LVEF of 50%. LV cavity is mildly dilated size. The gated study shows reduced wall thickening and contraction of basal inferior and inferoseptal segments. Resting study shows non attenuated images show absent uptake in the inferior as well as the inferoseptal wall of the LV myocardium. No charges this is related to intense subdiaphragmatic uptake although less likely. Attenuated corrected images are extremely limited in quality. Gating at rest reveals basal inferior and inferoseptal wall motion abnormality with ejection fraction at 44%. The findings are consistent with the study suboptimal due to intense subdiaphragmatic uptake interfering with inferior wall uptake in the diagnostic quality to detect inferior wall abnormality is limited. There is inferior wall motion abnormality suggestive underlying coronary artery disease.. KS/KS cardiolite stress test Impression: 1. Myocardial perfusion imaging study shows suboptimal study to detect for ischemia. Inferior wall of cannot be evaluated on this study. Consider alternative study 2. Gated LVEF is 50% with stress and 44% at rest with basal inferior and inferoseptal wall motion abnormality 3. Transient ischemic dilatation not present but LV cavity is dilated EKG is nondiagnostic for ischemia
--- NOTE | 2024-02-25 07:58 | CA_ITS ---
Acquisition Time: 2024-02-25 07:55:10 Total Exercise Time: 00:02:00 Test Indications: AFIB Medications: SEE H Protocol: LEXISCAN Max HR: 141 BPM 85% of Pred: 164 BPM Max BP: 122/064 mmHG Max Work Load: 1.0 METS Pharmacological stress test with Lexiscan injection while sitting without anginal symptoms, with isolated PVCs, with normtoensive response to injection, with nondiagnoisitic EKGs. Aminophylline 75mg IVP given to reverse Lexiscan. Nuclear images pending. Test reviewed with Dr. Persaud Referred By: Manjit Giles Overread By: Adeline Church
== END ==
LOC: HO.CARD 07:50
PROVIDERS: PCP Internal Medicine; Visit Provider Internal Medicine
DX: R07.2 Precordial pain (principal)
CPT/HCPCS: 78452; 93017; A9500; J0280; J2785

== ENCOUNTER → 2024-02-25 07:58 | Outpatient (BNV) | payer OTHER, SELFPAY | PROVIDERS: PCP Internal Medicine; Visit Provider Nurse Practitioner | DX: R07.2 Precordial pain (principal) | CPT/HCPCS: 78452; 93016; 93018 ==

== ENCOUNTER 2024-02-28 11:25 | Outpatient (AMB) | payer OTHER, SELFPAY ==
--- NOTE | 2024-02-28 12:30 | HO.SPINEOV ---
Intake Visit Reasons: CT results Intake Note: Mr. Bauman is here today to follow up on his CT Scan. 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 Bauman came in in follow-up today. Dr. Newton sat down met with him, we reviewed his imaging including x-ray, cervical MRI and cervical CT. He does have severe cervical stenosis at C3-4 without cord signal change seen on the imaging. There is a spondylolisthesis here as well. His primary complaint is right-sided neck pain with inability to extend his head upward. He does not have any myelopathic complaints in the arms or the legs. Nor does he have any physical exam findings consistent with myelopathy. He does however have significant muscle wasting of the sternomastoid bilaterally and the scaling neck muscles. There also appears to be a little bit of atrophy of the trapezius as well. It is a bit confusing as to why he has this neck pain and the atrophy of the muscles with the inability to extend his neck upward. It could be an unusual presentation for a myelopathy but we are thinking this could be a muscle disorder as a 1st diagnosis. We would like to send this patient to Neurology at [facility] Dr. JOSH Juan, and see if she can help us clarify if this is something that might respond to surgery and is an atypical myelopathy versus something that needs further workup from a neuromuscular standpoint. Dr. Newton called and spoke to about the situation and she will be willing to see him in the next few weeks. We will fax over a referral. Total amount of time spent in this visit was 20 minutes in discussion of symptoms, cervical MRI, cervical CT and x-ray imaging results and subsequent plan of care Benedicto Newton MD,PhD [facility] Orders: Referrals Neurology Referral M48.02 - Spinal stenosis, cervical region Coding Level of Care Code Est Pt Level 3 (43513) Diagnoses Cervical spinal stenosis M48.02
== END 2024-02-28 13:07 | disposition home or self-care (01) ==
PROVIDERS: PCP Internal Medicine; Visit Provider Physician Assistant
DX: M48.02 Spinal stenosis, cervical region (principal)
CPT/HCPCS: 99213

== ENCOUNTER 2024-02-28 11:25 | Outpatient (REF) | payer OTHER, SELFPAY ==
[2024-02-28 16:13] LABS: B Type Natriuretic Peptide 324 pg/mL (<100)
[2024-02-29 00:51] LABS: Anion Gap 12 (12-20); Blood Urea Nitrogen 55 mg/dL (9-16); Calcium 9.5 mg/dL (8.4-10.2); Carbon Dioxide 34 mmol/L (22-29); Chloride 96 mmol/L (96-108); Estimated Glomerular Filt Rate 41; Glucose Random 94 mg/dL (60-115); Potassium 4.2 mmol/L (3.3-5.1); Sodium 138 mmol/L (135-145)
== END 2024-02-28 11:26 | disposition home or self-care (01) ==
LOC: HO.LAB 11:25
PROVIDERS: Absent Provider Internal Medicine; PCP Internal Medicine; Visit Provider Physician Assistant
DX: I42.8 Other cardiomyopathies (principal); I48.91 Unspecified atrial fibrillation; I50.22 Chronic systolic (congestive) heart failure; M48.02 Spinal stenosis, cervical region
CPT/HCPCS: 36415; 80048; 83880

== ENCOUNTER → 2024-03-19 09:33 | Outpatient (BNVA) | payer OTHER, SELFPAY | PROVIDERS: PCP Internal Medicine ==

== ENCOUNTER 2024-03-20 11:06 | Outpatient (REF) | payer OTHER, SELFPAY ==
[2024-03-20 15:14] LABS: HBsAGNum1 0.32 S/CO (0.00-0.99); HIV Num 1 1.89 S/CO (0.00-0.99); Hepatitis B Surface Antigen Negative (Negative); ~Hepatitis C Antibody Nonreactive (Nonreactive)
[2024-03-20 16:11] LABS: HIV AB/AG Nonreactive (Nonreactive); HIV Num 2 0.05 S/CO; HIV Num 3 0.05 S/CO
== END 2024-03-20 11:07 | disposition home or self-care (01) ==
LOC: HO.LAB 11:06
PROVIDERS: PCP Internal Medicine; Visit Provider Nurse Practitioner Psychiatric/Mental Health
DX: Z77.21 Contact with and (suspected) exposure to potentially hazardous body fluids (principal)
CPT/HCPCS: 36415; 86803; 87340; 87389

== ENCOUNTER 2024-04-16 09:30 | Outpatient (AMB) | payer OTHER, SELFPAY ==
--- NOTE | 2024-04-16 09:29 | AM.OFFVISNUR ---
Intake Visit Reasons: Sublocade Injection Allergies No Known Allergies Allergy (Verified 02/03/24 12:53) Nursing Note Patient Presents for sublocade Injection. Current Dose 100mg . Given in the with no noted or stated complications. Denies any issues with previous injection. Denies symptoms, and denies any break through cravings. Last appt with provider was , will follow up with RN in 4 weeks for injection. Will need to see provider for check in next visit as well. Office Meds Sublocade 100 mg/0.5 mL solution,extended release subcutaneous syringe Performing Provider: Nyasia Miguel CNP Performing Location: [facility] Administered by: Mercedes Sorensen RN on 04/16/24 15:40 Dose Route Admin Location Dispensed Lot Number Expiration Date [facility] Steel Plate Caulker 100 mg subcut 0.5 mL [id number] 06/12/25 [address]-2 [email or web address]. Assessment & Plan Assessment & Plan Orders: Orders AMB Buprenorphine Injection - Patient Supplied Today F11.90 - Opioid use, unspecified, uncomplicated Medications: New Sublocade ER (buprenorphine) 100 mg (0.5 mL) subcut ONCE 0.5 mL 0RF NS F11.90 - Opioid use, unspecified, uncomplicated
== END 2024-04-16 09:56 | disposition home or self-care (01) ==
PROVIDERS: PCP Internal Medicine
DX: F11.90 Opioid use, unspecified, uncomplicated (principal)

== ENCOUNTER → 2024-04-16 09:30 | Outpatient (BNVA) | payer OTHER, SELFPAY | PROVIDERS: PCP Internal Medicine | DX: F11.90 Opioid use, unspecified, uncomplicated (principal) | CPT/HCPCS: 96372; Q9992 ==

== ENCOUNTER 2024-05-01 13:53 | Outpatient (AMB) | payer OTHER, SELFPAY ==
--- NOTE | 2024-05-01 13:55 | A.SPINEOV_ITS ---
Intake Visit Reasons: Discuss EMG results Intake Note: Mr. Bauman is here to Discuss results for his EMG. Computer Numerical Control Machinist Required: No Allergies No Known Allergies Allergy (Verified 02/03/24 12:53) Assessment & Plan Assessment & Plan (1) Cervical spinal stenosis: Code(s): M48.02 - Spinal stenosis, cervical region Category: Medical Plan Mr Bauman came back in the office today to discuss if there is anything we can do for him surgically regarding his head drop situation and the muscle wasting . He saw at [facility] who apparently he is going to do more testing maybe a DNA test. Dr. Newton was able to get in touch with her and is going to have him see someone else for 2nd opinion because she was concerned about something possibly an some of the testing that was done. These are all secondhand details so I do not have the actual report from her office visit front of me. His EMG was negative. I reviewed his case again with Dr. Newton and because of the muscle wasting and atrophy, this is not something that surgery can fix. I explained to him again, that we do not have any options for him surgically and then he should follow up with Dr. Juan to talk about the results of any testing. Total amount of time spent in this visit was 20 minutes in discussion of symptoms, EMG results and subsequent plan of care Benedicto Newton MD,PhD [facility] Coding Level of Care Code Est Pt Level 3 (68865) Diagnoses Cervical spinal stenosis M48.02
== END 2024-05-01 14:32 | disposition home or self-care (01) ==
PROVIDERS: PCP Internal Medicine; Visit Provider Physician Assistant
DX: M48.02 Spinal stenosis, cervical region (principal)
CPT/HCPCS: 99213

== ENCOUNTER → 2024-05-01 13:53 | Outpatient (BNVA) | payer OTHER, SELFPAY | PROVIDERS: PCP Internal Medicine; Visit Provider Physician Assistant ==

== ENCOUNTER 2024-05-13 09:17 | Outpatient (AMB) | payer OTHER, SELFPAY ==
--- NOTE | 2024-05-13 09:34 | MHC.AM.SUB ---
Intake Visit Reasons: MAT/ Sublocade Injection Allergies No Known Allergies Allergy (Verified 02/03/24 12:53) HPI HPI MAT/ Sublocade Injection: Details: Patient presents for follow up and Sublocade injection tolerating injection without any issue Reports recent visit with neurology in [place] where, he reports, they are doing testing related to muscle wasting in his neck He shared how pain and difficulty keeping his head up is impacting activities that he usually enjoys such as exercising and walking his dog Unsure if he is a surgical candidate --advised to let providers know he is receiving injection as we may need to hold off on injections and switch back to PO during that time [facility] Medical History (Updated 01/31/24 @ 15:48 by Lina Mckeon MD) Cervical spondylosis Synovial cyst of popliteal space [Lyle], left knee COVID-19 virus infection Biceps tendon rupture Atrial septal defect Obstructive sleep apnea Chronic low back pain Obesity (BMI 30-39.9) Atrial fibrillation Psoriasis Hypercholesterolemia Left wrist tendinitis Surgical History H/O umbilical hernia repair H/O arthroscopic knee surgery History of repair of atrial septal defect H/O spinal fusion Family History Father No problems noted. Mother No problems noted. 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 Cognitive needs: No Hearing needs: No Vision needs: No Review of Systems Const Reports as per HPI and Reports no additional complaints Physical Exam Const General: cooperative, healthy appearing, no acute distress and well groomed Nutritional Appearance: average body habitus Orientation/consciousness: patient oriented x3 Neuro General: patient oriented x3 Office Meds Sublocade 100 mg/0.5 mL solution,extended release subcutaneous syringe Performing Provider: Nyasia Miguel CNP Performing Location: [facility] Administered by: Mercedes Sorensen RN on 05/13/24 09:56 Dose Route Admin Location Dispensed Lot Number Expiration Date [facility] Family Practitioner 100 mg subcut RLQ 0.5 mL [id number] 06/12/25 [address]-6 [employer]. Assessment & Plan Assessment & Plan (1) Opioid dependence: Code(s): F11.20 - Opioid dependence, uncomplicated Category: Medical Qualifiers: Substance use status: uncomplicated Qualified Code(s): F11.20 - Opioid dependence, uncomplicated Plan: tolerated injection follow up 4 weeks Orders: Orders AMB Buprenorphine Injection 05/13/24 F11.90 - Opioid use, unspecified, uncomplicated Medications: Refilled buprenorphine ER (Sublocade) 100 mg (0.5 mL) subcut .every 28 days 0.5 mL 0RF
== END 2024-05-13 09:50 | disposition home or self-care (01) ==
PROVIDERS: PCP Internal Medicine; Visit Provider Nurse Practitioner Psychiatric/Mental Health
DX: F11.90 Opioid use, unspecified, uncomplicated (principal); F11.20 Opioid dependence, uncomplicated
CPT/HCPCS: 99213

== ENCOUNTER → 2024-05-13 09:17 | Outpatient (BNVA) | payer OTHER, SELFPAY | PROVIDERS: PCP Internal Medicine; Visit Provider Nurse Practitioner Psychiatric/Mental Health | DX: F11.20 Opioid dependence, uncomplicated (principal) | CPT/HCPCS: 96372; Q9991 ==

== ENCOUNTER 2024-06-09 13:44 | Outpatient (AMB) | payer OTHER, SELFPAY ==
[2024-06-09 13:55] VITALS: BP 118/68; PULSE 58; BMI 26.0
--- NOTE | 2024-06-09 13:55 | MHC.OFFVIS ---
Vital Signs 06/09/24 13:55 Height 5 ft 9 in Weight 176 lb 5.917 oz BMI 26.0 BP 118/68 Blood Pressure Location Lt brachial Position Sitting Pulse 58 Pulse Source Monitor Intake Visit Reasons: preop Allergies No Known Allergies Allergy (Verified 02/03/24 12:53) Medication List - Last Reconciled 06/09/24 by Manjit Giles MD apixaban (Eliquis) 5 mg PO BID bisacodyl (Dulcolax (bisacodyl)) 20 mg (4 x 5 mg) PO ONCE 1 day bisacodyl 20 mg (4 x 5 mg) PO ONCE buprenorphine ER (Sublocade) 100 mg (0.5 mL) subcut .every 28 days fenofibrate 160 mg PO DAILY furosemide 40 mg (2 x 20 mg) PO DAILY 90 days metoprolol succinate ER 50 mg PO DAILY polyethylene glycol 3350 (Gavilax) 238 grams PO ONCE polyethylene glycol 3350 (Miralax) 238 grams PO ONCE PRN 1 day simvastatin 40 mg PO BEDTIME HPI Comments Details: Channing is here as he needs preoperative stratification for cervical spine surgery. He does have various cardiac issues including permanent atrial fibrillation, congestive heart failure, history of atrial septal defect closure. To recall, he underwent closure of secundum atrial septal defect in 2008. We had seen him around 2014 and recommended cardioversion but not followed through for many years and hence it essentially became persistent/permanent atrial fibrillation. His follow-up with us has been somewhat intermittent. Over the last year or so, he has been trying to lose a lot of weight and he lost more than 100 lb. He states he works out regularly. He can run as much as 3-4 miles with no issues. He is also able to do 50 pushups regularly. No cardiac symptoms during these times. We tried Entresto for congestive heart failure/LV dysfunction but he states he stopped taking it because he got very dizzy. Otherwise, no specific concerns. [facility] Medical History (Updated 06/09/24 @ 15:56 by Manjit Giles MD) Cervical spondylosis Synovial cyst of popliteal space [Lyle], left knee COVID-19 virus infection Biceps tendon rupture Atrial septal defect Obstructive sleep apnea Chronic low back pain Obesity (BMI 30-39.9) Atrial fibrillation Psoriasis Hypercholesterolemia Left wrist tendinitis Surgical History H/O umbilical hernia repair H/O arthroscopic knee surgery History of repair of atrial septal defect H/O spinal fusion Family History Father No problems noted. Mother No problems noted. 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 Cognitive needs: No Hearing needs: No Vision needs: No Review of Systems Const Denies weakness ENT Denies dizziness Card Denies chest pain, Denies chest pain with activity, Denies syncope, Denies rapid heart rate, Denies pedal edema, Denies edema, Denies leg edema, Denies lightheadedness, Denies palpitations, Denies dyspnea, Denies dyspnea on exertion and Denies orthopnea Resp Denies cough, Denies dyspnea and Denies dyspnea on exertion GI Denies hematochezia and Denies change in stool character Musc Denies abnormal gait, Denies muscle cramps, Denies muscle weakness, Denies numbness, Denies radiating pain into limb and Denies tingling Neuro Denies abnormal gait, Denies dizziness, Denies syncope, Denies numbness, Denies tingling and Denies weakness Endo Denies palpitations Physical Exam Vital Signs: Last Vital Signs Pulse 58 06/09/24 13:55 BP 118/68 06/09/24 13:55 BMI result Body Mass Index 26.0 Const General: comfortable and no acute distress Orientation/consciousness: patient oriented x3 HEENT Other: Unremarkable Head: Yes normal to inspection Neck Neck: Yes normal visual inspection Chest Chest palpation & inspection: normal inspection of the chest Resp Auscultation: clear to auscultation bilaterally Cardio Palpation: normal PMI Heart sounds: S1 normal heart sound present, S2 normal heart sound present, no gallops, no murmurs and no rubs GI Palpation (GI): Soft to palpation Back/Spine/Pelvis Other: unremarkable Skin General skin exam: no rashes or lesions noted Neuro General: patient oriented x3 Extrem General: Yes normal to inspection Psych Mental Status: mental status grossly normal Office Procedures EKG Details: EKG with atrial fibrillation at a rate of 58/Min; RSR' pattern suggesting RV conduction delay. [id number], Complete Assessment & Plan Assessment & Plan (1) Preoperative cardiovascular examination: Code(s): Z01.810 - Encounter for preprocedural cardiovascular examination Category: Medical Plan: He has excellent exercise tolerance at baseline. May proceed as planned. Intermediate cardiac risk. May hold anticoagulation as necessary for the surgery. (2) Chronic right heart failure: Code(s): I50.812 - Chronic right heart failure Category: Medical Plan: Well controlled on diuretics. (3) NICM (nonischemic cardiomyopathy): Code(s): I42.8 - Other cardiomyopathies Category: Medical Plan: In the echocardiogram from 2022, LVEF diminished at 30-35%. In the repeat echocardiogram in 2023, LVEF at 50-55%. In the myocardial perfusion imaging study, suboptimal quality and not interpretable. Clinically, he does not have any symptoms of obstructive CAD. For medications, continue metoprolol ER. Not tolerant of Entresto and he got very dizzy and also had renal insufficiency. Need to recheck labs. Remains on diuretics. Possibly other medications like spironolactone/Farxiga in the future as long as he can maintain blood pressure. However, as the appointments are intermittent, difficult to coordinate. (4) Persistent atrial fibrillation: Code(s): I48.19 - Other persistent atrial fibrillation Category: Medical Plan: Essentially permanent atrial fibrillation with dilated atria. Rate controlled beta-blockers with anticoagulation. (5) Status post atrial septal defect closure: Code(s): Z87.74 - Personal history of (corrected) congenital malformations of heart and circulatory system Category: Surgical Plan: Stable. (6) Essential hypertension: Code(s): I10 - Essential (primary) hypertension Category: Medical Plan: Stable. (7) Obstructive sleep apnea: Code(s): G47.33 - Obstructive sleep apnea (adult) (pediatric) Category: Medical Plan: Most likely it improved as he has lost lot of weight. (8) Morbid obesity: Code(s): E66.01 - Morbid (severe) obesity due to excess calories Category: Medical Plan: Overall, he has lost more than 100 lb in weight. Orders: Orders Complete Blood Count no Diff Today I50.812 - Chronic right heart failure Basic Metabolic Panel 10/11/24 I50.812 - Chronic right heart failure Coding Level of Care Code Est Pt Level 4 (43755) Diagnoses Preoperative cardiovascular examination Z01.810 Chronic right heart failure I50.812 NICM (nonischemic cardiomyopathy) I42.8 Persistent atrial fibrillation I48.19 Status post atrial septal defect closure Z87.74 Essential hypertension I10 Obstructive sleep apnea G47.33 Morbid obesity E66.01 CPT Codes EKG - CPT: 04910-Xewchushloonspbty, Complete ([id number])
== END 2024-06-09 14:21 | disposition home or self-care (01) ==
LOC: HO.HCS 13:45
PROVIDERS: PCP Internal Medicine; Visit Provider Internal Medicine
DX: Z01.810 Encounter for preprocedural cardiovascular examination (principal); I50.812 Chronic right heart failure; I42.8 Other cardiomyopathies; I48.19 Other persistent atrial fibrillation; Z87.74 Personal history of (corrected) congenital malformations of heart and circulatory system; I10 Essential (primary) hypertension; G47.33 Obstructive sleep apnea (adult) (pediatric); E66.01 Morbid (severe) obesity due to excess calories
CPT/HCPCS: 93010; 99214

== ENCOUNTER → 2024-06-09 13:44 | Outpatient (BNVA) | payer OTHER, SELFPAY | PROVIDERS: PCP Internal Medicine; Visit Provider Internal Medicine | DX: Z01.810 Encounter for preprocedural cardiovascular examination (principal); I11.0 Hypertensive heart disease with heart failure; I50.812 Chronic right heart failure; I42.8 Other cardiomyopathies; I48.19 Other persistent atrial fibrillation; G47.33 Obstructive sleep apnea (adult) (pediatric); Z79.899 Other long term (current) drug therapy; Z87.74 Personal history of (corrected) congenital malformations of heart and circulatory system | CPT/HCPCS: 93005 ==

== ENCOUNTER 2024-06-12 09:30 | Outpatient (AMB) | payer OTHER, SELFPAY ==
--- NOTE | 2024-06-12 09:40 | AM.OFFVISNUR ---
Intake Visit Reasons: Sublocade Injection Allergies No Known Allergies Allergy (Verified 02/03/24 12:53) Nursing Note Patient Presents for Sublocade Injection. Current Dose 100mg. Given in the LLQ with no noted or stated complications. Denies any issues with previous injection. Denies symptoms, and denies any break through cravings. Last appt with provider was in May , will follow up with RN in 4 weeks for injection. Will need to see provider for check in August . Office Meds Sublocade 100 mg/0.5 mL solution,extended release subcutaneous syringe Performing Provider: Nyasia Miguel CNP Performing Location: [facility] Administered by: Mercedes Sorensen RN on 06/12/24 10:11 Dose Route Admin Location Dispensed Lot Number Expiration Date [facility] Health Service Coordinator 100 mg subcut LLQ 0.5 mL [id number] 06/12/25 [address]-6 [employer]. Assessment & Plan Assessment & Plan Orders: Orders AMB Buprenorphine Injection Today F11.90 - Opioid use, unspecified, uncomplicated Medications: New Sublocade ER (buprenorphine) 100 mg (0.5 mL) subcut ONCE 0.5 mL 0RF NS F11.90 - Opioid use, unspecified, uncomplicated
== END 2024-06-12 10:44 | disposition home or self-care (01) ==
LOC: HO.HCC 09:31
PROVIDERS: PCP Internal Medicine
DX: F11.90 Opioid use, unspecified, uncomplicated (principal)

== ENCOUNTER → 2024-06-12 09:30 | Outpatient (BNVA) | payer OTHER, SELFPAY | PROVIDERS: PCP Internal Medicine | DX: F11.90 Opioid use, unspecified, uncomplicated (principal) | CPT/HCPCS: 96372; Q9991 ==

== ENCOUNTER 2024-07-14 09:17 | Outpatient (AMB) | payer OTHER, SELFPAY ==
--- NOTE | 2024-07-14 09:24 | AM.OFFVISNUR ---
Intake Visit Reasons: Sublocade Injection Allergies No Known Allergies Allergy (Verified 02/03/24 12:53) Nursing Note Patient Presents for sublocade Injection. Current Dose 100mg. Given in the with no noted or stated complications. Denies any issues with previous injection. Denies symptoms, and denies any break through cravings. Last appt with provider was last month in [facility] , will follow up with RN in 4 weeks for injection. Will need to see provider for check in September . Office Meds Sublocade 100 mg/0.5 mL solution,extended release subcutaneous syringe Performing Provider: Nyasia Miguel CNP Performing Location: [facility] Administered by: Mercedes Sorensen RN on 07/14/24 09:25 Dose Route Admin Location Dispensed Lot Number Expiration Date [facility] It Security Manager 100 mg subcut RLQ 0.5 mL [id number] 06/12/25 [address]-0 [employer]. Assessment & Plan Assessment & Plan Orders: Orders AMB Buprenorphine Injection Today F11.90 - Opioid use, unspecified, uncomplicated
== END 2024-07-14 16:10 | disposition home or self-care (01) ==
PROVIDERS: PCP Internal Medicine
DX: F11.90 Opioid use, unspecified, uncomplicated (principal)

== ENCOUNTER → 2024-07-14 09:17 | Outpatient (BNVA) | payer OTHER, SELFPAY | PROVIDERS: PCP Internal Medicine | DX: F11.90 Opioid use, unspecified, uncomplicated (principal); Z51.81 Encounter for therapeutic drug level monitoring | CPT/HCPCS: 96372; Q9991 ==

== ENCOUNTER 2024-08-04 08:39 | Outpatient (REF) | payer OTHER, SELFPAY ==
[2024-08-04 10:09] LABS: Hematocrit 49.2 % (42.0-52.0); Hemoglobin 15.9 g/dl (14.0-18.0); Mean Corpuscular HGB Conc 32.3 g/dl (31.0-36.0); Mean Corpuscular Hemoglobin 28.3 pg (27.0-33.0); Mean Corpuscular Volume 87.7 fL (80.0-98.0); Mean Platelet Volume 11.2 fL (9.4-12.4); Platelet Count 150 X10*3/uL (160-400); Red Blood Count 5.61 X10*6/uL (4.60-5.80); Red Cell Distribution Width 14.6 % (11.0-16.0); White Blood Count 5.2 X10*3/uL (4.8-10.8)
[2024-08-04 10:22] LABS: Anion Gap 11 (12-20); Blood Urea Nitrogen 54 mg/dL (9-16); Calcium 9.6 mg/dL (8.4-10.2); Carbon Dioxide 36 mmol/L (22-29); Chloride 95 mmol/L (96-108); Estimated Glomerular Filt Rate 45; Glucose Random 79 mg/dL (60-115); Potassium 3.5 mmol/L (3.3-5.1); Sodium 138 mmol/L (135-145)
== END 2024-08-04 08:40 | disposition home or self-care (01) ==
LOC: HO.HMGCLDS 08:39
PROVIDERS: PCP Internal Medicine; Visit Provider Internal Medicine
DX: I50.812 Chronic right heart failure (principal)
CPT/HCPCS: 36415; 80048; 85027

== ENCOUNTER 2024-08-13 09:34 | Outpatient (REF) | payer OTHER, SELFPAY ==
--- NOTE | ~2024-08-13 | XR_ITS ---
CLINICAL HISTORY: s p fusion, spinal stenosis 10 views cervical spine Comparison: 02/03/2024 Findings: There is new anterior cervical spine fusion C3-C4. No hardware complication. No acute fractures There is no significant change in alignment of the 2.8 mm anterior listhesis C3 on C4 on neutral, flexion and extension views. There is no change in 2 mm anterior listhesis C2 on C3. There is multilevel cervical spondylosis unchanged when compared to prior imaging. Evaluation of the cervical spine is limited due to overlapping bone and soft tissue structures. There is multilevel bilateral foraminal stenoses. There is thoracic dextroscoliosis. There is a fracture of the thoracic metallic fixation shahid within the midthoracic region. The thoracic shahid is incompletely included on the field of view. This fracture of the thoracic shahid is not included on the field of view on prior imaging. IMPRESSION: Multilevel spondylosis anterior cervical spine fusion at C3-C4 as above no change in alignment on neutral, flexion and extension views Thoracic dextroscoliosis. There is a fracture of the thoracic metallic fixation shahid within the midthoracic region. The thoracic shahid is incompletely included on the field of view. This fracture of the thoracic shahid is not included on the field of view on prior imaging. This document has been electronically signed by: Jama Zuleta MD on 08/14/2024 08:35:19
[2024-08-13 11:21] LABS: Alanine Aminotransferase 18 U/L (0-40); Albumin Level 4.2 g/dL (3.5-5.0); Alkaline Phosphatase 88 U/L (39-117); Aspartate Amino Transferase 30 U/L (5-37); Bilirubin Direct 0.2 mg/dL (0.0-0.5); Bilirubin Total 0.6 mg/dL (0.0-1.0); Total Protein 7.4 g/dL (6.5-8.0)
== END 2024-08-13 09:35 | disposition home or self-care (01) ==
LOC: HO.XRAY 09:34
PROVIDERS: Absent Provider Nurse Practitioner Psychiatric/Mental Health; PCP Internal Medicine; Referring Provider Physician Assistant
DX: F11.90 Opioid use, unspecified, uncomplicated (principal); M48.20 Kissing spine, site unspecified; Z79.899 Other long term (current) drug therapy
CPT/HCPCS: 36415; 72050; 80076; 96372; Q9992

== ENCOUNTER 2024-08-13 09:34 | Outpatient (AMB) | payer OTHER, SELFPAY ==
--- NOTE | 2024-08-13 09:46 | AM.OFFVISNUR ---
Intake Visit Reasons: Sublocade Injection Allergies No Known Allergies Allergy (Verified 02/03/24 12:53) Nursing Note Patient Presents for Sublocade Injection. Current Dose 100mg . Given in the LLQ with no noted or stated complications. Denies any issues with previous injection. Denies symptoms, and denies any break through cravings. Will follow up with RN in 4 weeks for injection. Will need to see provider for check in at next visit . Patient was notified to have his labs drawn, and went to lab after appt. Office Meds Sublocade 300 mg/1.5 mL solution,extended release subcutaneous syringe Performing Provider: Nyasia Miguel CNP Performing Location: [facility] Administered by: Mercedes Sorensen RN on 08/14/24 09:04 Dose Route Admin Location Dispensed Lot Number Expiration Date [facility] Sweater Designer 100 mg subcut LLQ 0.5 mL [id number] 09/12/25 [address]-8 Assessment & Plan Assessment & Plan Orders: Orders AMB Buprenorphine Injection 08/13/24 F11.90 - Opioid use, unspecified, uncomplicated Medications: New Sublocade ER (buprenorphine) 100 mg (0.5 mL) subcut ONCE 0.5 mL 0RF NS F11.90 - Opioid use, unspecified, uncomplicated
== END 2024-08-13 09:56 | disposition home or self-care (01) ==
PROVIDERS: PCP Internal Medicine
DX: F11.90 Opioid use, unspecified, uncomplicated (principal)

== ENCOUNTER → 2024-08-13 10:21 | Outpatient (BNV) | payer OTHER, SELFPAY | PROVIDERS: Absent Provider Nurse Practitioner Psychiatric/Mental Health; PCP Internal Medicine; Referring Provider Physician Assistant; Visit Provider Radiology Diagnostic Radiology | DX: M41.34 Thoracogenic scoliosis, thoracic region (principal); M43.22 Fusion of spine, cervical region | CPT/HCPCS: 72050 ==

== ENCOUNTER 2024-09-09 09:31 | Outpatient (AMB) | payer OTHER, SELFPAY ==
--- NOTE | 2024-09-09 09:41 | A.OFFVISCC_ITS ---
Vital Signs 09/09/24 09:45 BP 140/70 H Blood Pressure Location Rt brachial Position Sitting Respiration 19 Pulse 65 Pulse Source Pulse Oximeter Pulse Oximetry (%) 98 Oxygen Delivery Method Room Air Intake Visit Reasons: MAT/ Sublocade Injection Allergies No Known Allergies Allergy (Verified 02/03/24 12:53) HPI HPI MAT/ Sublocade Injection: Details: Patient presents for follow up and Sublocade injection Doing well with injection --Sublocade 100mg q 4 weeks Discussed spacing out injection next time, 5 weeks. Patient agreeable Denies any discomfort btwn injections No changes to medications Review of Systems Const Reports as per HPI and Reports no additional complaints Physical Exam Vital Signs: Last Vital Signs Pulse 65 09/09/24 09:45 Resp 19 09/09/24 09:45 BP 140/70 H 09/09/24 09:45 Pulse Ox 98 09/09/24 09:45 Oxygen Delivery Method Room Air 09/09/24 09:45 Const General: cooperative, healthy appearing, no acute distress and well groomed Nutritional Appearance: average body habitus Orientation/consciousness: patient oriented x3 Neuro General: patient oriented x3 Office Meds Sublocade 100 mg/0.5 mL solution,extended release subcutaneous syringe Performing Provider: Nyasia Miguel CNP Performing Location: [facility] Administered by: Mercedes Sorensen RN on 09/09/24 09:47 Dose Route Admin Location Dispensed Lot Number Expiration Date [facility] Saas Architect 100 mg subcut RLQ 0.5 mL [id number] 09/12/25 [address]-6 [employer] [facility] Medical History (Updated 08/04/24 @ 13:28 by El Pierce NP) Cervical spondylosis Synovial cyst of popliteal space [Lyle], left knee COVID-19 virus infection Biceps tendon rupture Atrial septal defect Obstructive sleep apnea Chronic low back pain Obesity (BMI 30-39.9) Atrial fibrillation Psoriasis Hypercholesterolemia Left wrist tendinitis Surgical History H/O umbilical hernia repair H/O arthroscopic knee surgery History of repair of atrial septal defect H/O spinal fusion Family History Father No problems noted. Mother No problems noted. Social History (Reviewed 11/14/23 @ 08:39 by RONALD Khanna Housing: House Alcohol intake: unknown Patient Tobacco Use Status: Never used Tobacco e-Cigarette/Vaping Use: Never Used Second Hand Smoke Exposure: No service: No Current occupational status: employed Current occupation: [employer] - Left Handed Cognitive needs: No Hearing needs: No Vision needs: No Assessment & Plan Assessment & Plan (1) Opioid dependence: Code(s): F11.20 - Opioid dependence, uncomplicated Category: Medical Qualifiers: Substance use status: uncomplicated Qualified Code(s): F11.20 - Opioid dependence, uncomplicated Plan: * tolerated injection * follow up 4 weeks Orders: Orders AMB Buprenorphine Injection Today F11.90 - Opioid use, unspecified, uncomplicated Medications: Discontinued polyethylene glycol 3350 (Miralax) Take as directed by mouth the day before your procedure. Discontinued Reason: Patient Completed Course 238 grams PO ONCE 1 day PRN 238 grams 0RF laxative effect
[2024-09-09 09:45] VITALS: BP 140/70; PULSE 65; RESP 19; O2SAT 98
--- OUTSIDE RECORDS SUMMARY | 2024-09-09 11:05 | XMS_ITS | Encounter Summary ---
Author Organization [facility] Address [address] [place] [address] Care [address] Magistrate Name Role Phone Anthony Ruiz MD Primary Care Provider [phone] Reason for Visit * Reason Comments Post-op S/P C3-4 ACDF Encounter Details Date Type Department Care Team (Late st Contact Info) Description 08/14/2024 1:45 PM EST Office Visit Neurosurgery [place] [facility] [address] [address] Natalia Marinelli MD [address] [place] [address] Cervical spondylitic cord compression (Primary Dx) Social History Tobacco Use Types Packs/Day Years Used Date Smoking Tobacco: Never Passive Smoke Exposure: Never Smokeless Tobacco: Never Tobacco Cessation:Counseling Given: Not Answered Alcohol Use Standard Drinks/Week Comments Never 0 (1 standard drink = 0.6 oz pur e alcohol) Interpersonal Safety Answer Date Record ed Physical Abuse 06/18/2024 Verbal Abuse 06/18/2024 Sex and Gender Information Value Date Recorded Sex Assigned at Male 06/17/2024 9:01 AM EST Gender Identity Male 06/17/2024 9:01 AM EST Sexual Orientation Straight 06/17/2024 9: 01 AM EST Job Start Date Occupation Industry Not on file Not on file Not on file documented as of this encounter Last Filed Vital Signs Vital Sign Reading Time Taken Comments Blood Pressure - - Pulse - - Temperature - - Respiratory Rate - - Oxygen Saturation - - Inhaled Oxygen Concentration - - Weight 76.2 kg (168 lb) 08/14/2024 1:41 PM EST Height 177.8 cm (5' 10 ) 08/14/2024 1:41 PM EST Body Mass Index 24.11 08/14/2024 1:41 PM EST documented in this encounter Progress Notes * Natalia Marinelli MD - 08/14/2024 2:35 PM ESTAssociated Problem(s): Cervical spondylitic cord compression Mr. Bauman has done quite well since surgery, is able to look forward and look up enough to see the overhead bars at the gym which she been unable to do before. He is not having any neck pain, paresthesias and no issues swallowing. This is the best we could have hoped for. There is no instability on the flexion-extension x-rays from [place] yesterday though there is a little gap between the bonegraft and the C3 endplate. I anticipate that this will go on to fuse and we will check repeat images at 1 year from surgery. He is welcome to contact us if he has any concerns in the interim. * Natalia Marinelli MD - 08/14/2024 1:45 PM EST NEUROSURGERY POST OP VISIT Date of Visit: 08/14/2024 Referring Physician: Anthony Ruiz MD Primary Care Physician: Anthony Ruiz MD RE: Yousifwayne Bauman Jr. : 1965 Mr. Channing Bauman Jr. is here for a second postop visit since a C3-4 ACDF with plating on 06/18/2024. He denies neck pain, pain or paresthesias in his arms and further denies any issues swallowing.He denies wound drainage or bowel bladder issues and feels he has fully recovered from the postoperative pneumonia for which he was seen in the ED about 10 days after surgery. He is feeling well and not taking any pain medication. Current Outpatient Medications on File Prior to Visit Medication Sig Dispense Refill buprenorphine (SUBLOCADE) 100 mg/0.5 mL ER injection Inject 0.5 mL (100 mg total) under the skin every 28 (twenty-eight) days. fenofibrate (LOFIBRA) 160 mg tablet Take 1 tablet (160 mg total) by mouth 1 (one) time each day. furosemide (LASIX) 20 mg tablet Take 1 tablet (20 mg total) by mouth 2 (two) times a day. guselkumab (Tremfya) 100 mg/mL injection Inject 1 mL (100 mg total) under the skin every 3 (three) months. metoprolol succinate (TOPROL-XL) 50 mg 24 hr tablet Take 1 tablet (50 mg total) by mouth 1 (one) time each day. Do not crush or chew. simvastatin (ZOCOR) 40 mg tablet Take 1 tablet (40 mg total) by mouth at bedtime. No current facility-administered medications on file prior to visit. On exam, he is awake and alert. Speech and comprehension are intact. Respirations are unlabored. Heis sitting up with his head in a nearly neutral position but able to look forward. Extension is 20 to 30 degrees. Cervical rotation is 45 degrees bilaterally. Motor exam reveals good strength to resis tance bilaterally 5/5. Incision is well-healed with no sign of infection. Pt is ambulating independently. Problem List Items Addressed This Visit Cervical spondylitic cord compression - Primary Mr. Bauman has done quite well since surgery, is able to look forward and look up enough to see the overhead bars at the gym which she been unable to do before. He is not having any neck pain, paresthesias and no issues swallowing. This is the best we could have hoped for. There is no instability on the flexion-extension x-rays from [place] yesterday though there is a little gap between the bonegraft and the C3 endplate. I anticipate that this will go on to fuse and we will check repeat images at 1 year from surgery. He is welcome to contact us if he has any concerns in the interim. All questions answered. he will call with any questions. Natalia Marinelli MD on 08/14/2024 at 2:35 PM EST [facility] [place] documented in this encounter Plan of Treatment Not on file documented as of this encounter Visit Diagnoses Diagnosis Cervical spondylitic cord compression- Primary Cervical spondylosis with myelopathy documented in this encounter Care Teams Court Magistrate Relationship Specialty Start Date End Date Anthony Ruiz MD [address] [place] [address] Dr [address] [facility] [place] [address] PCP - General Internal Medicine 01/26/21 documented as of this encounter
--- OUTSIDE RECORDS SUMMARY | 2024-09-09 11:05 | XMS_ITS | Clinical Summary ---
Author Organization [facility] Address [address] [place] [address] Phone Care Team Providers Care Boat Garnisher Name Role Phone Anthony Ruiz MD Primary Care Provider [phone] Allergies No known active allergies Medications Medication Sig Dispensed Refills Start Date End Date Status guselkumab (Tremfya) 100 mg/mL injection Inject 1 mL (100 mg total) under the skin every 3 (three) months. Active fenofibrate (LOFIBRA) 160 mg tablet Take 1 tablet (160 mg total) by mouth 1 (one) time each day. Active metoprolol succinate (TOPROL-XL) 50 mg 24 hr tablet Take 1 tablet (50 mg total) by mouth 1 (one) time each day. Do not crush or chew. Active furosemide (LASIX) 20 mg tablet Take 1 tablet (20 mg total) by mouth 2 (two) times a day. Active simvastatin (ZOCOR) 40 mg tablet Take 1 tablet (40 mg total) by mouth at bedtime. Active buprenorphine (SUBLOCADE) 100 mg/0.5 mL ER injection Inject 0.5 mL (100 mg total) under the skin every 28 (twenty-eight) days. 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 Bauman. I agree with Dr. Newton opinion that his head posture is suspicious for muscle weakness/neuromuscular disorder and he should pursue the additional testing recommended by Dr. Dumont of neurology as the EMG/NCS was normal. If there is no evidence of muscle disease, I would consider a C3-4 ACDF with plating as he has a significant anterolisthesis which appeared increased compared to x-rays 2 months prior though there was no rony instability on the dynamic views. There is disc osteophyte and ligamentous hypertrophy with severe canal stenosis and probable cord compression at that level. He would be at risk for developing symptoms of myelopathy if the anterolisthesis progresses given the stenosis. He will get in touch with us once the results of his muscle antibody testing. Assessment & Plan (08/14/2024 2:35 PM EST): Mr. Bauman has done quite well since surgery, is able to look forward and look up enough to see the overhead bars at the gym which she been unable to do before. He is not having any neck pain, paresthesias and no issues swallowing. This is the best we could have hoped for. There is no instability on the flexion-extension x-rays from [facility] yesterday though there is a little gap between the bone graft and the C3 endplate. I anticipate that this will go on to fuse and we will check repeat images at 1 year from surgery. He is welcome to contact us if he has any concerns in the interim. Assessment & Plan (06/30/2024 3:13 PM EST): Patient is 12 days s/p C3-4 ACDF, feels he has better range of motion in his neck, no neck pain, feels surgery has helped him. He is not requiring any pain medication. Unfortunately he did have a walking pneumonia, went to the ED and was given antibiotics, is feeling much better now. He denies any fevers, wound drainage, weakness. Mr. Bauman has a follow-up appointment in [address] Marinelli with C-spine x-rays. He is requesting to get them done at [facility], order faxed over. All postop questions answered. I asked him to call with any concerns or questions prior to his next appointment. Encounters Date Type Department Care Team Description 08/14/2024 1:45 PM EST Office Visit Neurosurgery [address] [phone] Natalia Marinelli MD Cervical spondylitic cord compression (Primary Dx) 06/30/2024 10:00 AM EST Office Visit [address] [phone] Lory Devine PA Spinal stenosis, cervical region (Primary Dx); Cervical spondylitic cord compression 06/28/2024 9:13 AM EST - 06/28/2024 12:21 PM EST Emergency [facility] Emergency [address] [place] [address] Pneumonia of left lower lobe due to infectious organism (Primary Dx) Discharge Disposition: Home or Self Care 06/26/2024 Telephone Neurosurgery [address] [address] Bill [facility] [place] 06/23/2024 Telephone Neurosurgery [address] [address] Johanne Richardson [place] Advice Only 06/19/2024 Telephone Neurosurgery [address] [address] Bill Mur[place], [place] 06/18/2024 10:00 AM EST - 06/18/2024 1:00 PM EST Surgery [facility] Main OR [address] [place] [phone] Natalia Marinelli MD C3-4 acdf [89943 (CPT??) +2 more] 06/18/2024 9:59 AM EST Anesthesia Event [facility] Main OR [address] [place] [phone] Toro Schilling MD Couture, Alison [facility] 06/18/2024 8:42 AM EST - 06/18/2024 3:05 PM EST Hospital Encounter [facility] Main OR [address] [place] [address] Natalia Marinelli MD Spinal stenosis, cervical region (Primary Dx) Discharge Disposition: Home or Self Care 06/18/2024 7:20 AM EST - 06/18/2024 11:59 PM EST Hospital Encounter [facility] Xray [address] [place] [address] Pain Discharge Disposition: Home or Self Care from Last 3 Months Immunizations Name Administration Dates Next Due Influenza Quadravalent, MDCK , 0.5ml, preservative free (Flucelvax) 6mo and older 06/03/2017 Influenza Quadrivalent, 0.5m l, preservative free (Fluarix; FluLaval; Fluzone) ages 6mo and older (Afluria) 3yo and older 03/20/2023,05/28/2022,07/30/2018 Moderna (age 6mo & older) Bi valent, COVID-19, 0.5 mL or 0.25 mL dosage 05/28/2022 Tdap Tetanus diptheria acell ular pertussis (Boostrix; Adacel) 7yo and older 07/30/2018 Surgical History Surgery Date Site/Laterality Comments CARDIAC SURGERY PROCEDURE: HISTORICAL HEART SURGERY(ASD,VSD,VALVES); COMMENT: port access asd repair HERNIA REPAIR PROCEDURE: HISTORICAL HERNIA REPAIR/UMB BACK SURGERY PROCEDURE: HISTORICAL BACK SURGERY; COMMENT: lumbar fusion FOOT SURGERY Bilateral PROCEDURE: HISTORICAL FOOT SURGERY ANTERIOR CERVICAL DISCECTOMY W/ FUSION 06/18/2024 N/A Medical History Medical History Date Comments Heart disease 2008 DX:Heart disease ; COMMENT: asd repair Hypercholesterolemia DX:Hypercho lesterolemia Obesity 2020 DX:Obesity; COMM ENT: morbid Scoliosis DX:Scoliosis Atrial fibrillation (CMS/HCC) DX :Atrial fibrillation (HCC); COMMENT: unknown how long in found when had recent echo no tx Essential hypertension DX:Essent ial hypertension Adverse effect of anesthesia CHF (congestive heart failure) (CMS/HCC) Arrhythmia A-fib (CMS/HCC) Irregular heart beat History of transfusion Arthritis Joint pain Hx of scoliosis Cervical stenosis of spine Social History Tobacco Use Types Packs/Day Years [...] file Not on file Not on file Obstetrics History Last Filed Vital Signs Vital Sign Reading Time Taken Comments Blood Pressure 108/75 06/28/2024 11:34 AM EST Pulse 84 06/28/2024 11:34 AM EST Temperature 37.2 ??C (99 ??F) 06/28/2024 11:34 AM EST Respiratory Rate 18 06/28/2024 11:34 AM EST Oxygen Saturation 97% 06/28/2024 11:34 AM EST Inhaled Oxygen Concentration - - Weight 76.2 kg (168 lb) 08/14/2024 1:41 PM EST Height 177.8 cm (5' 10 ) 08/14/2024 1:41 PM EST Body Mass Index 24.11 08/14/2024 1:41 PM EST Plan of Treatment Health Maintenance Due Date Last Done Comments Hepatitis B Vaccines (1 of 3 - 19+ 3-dose series) 1986 Zoster Vaccines (1 of 2) 2017 COVID-19 Vaccine ( season) 2024 05/16/2023, 05/28/2022, 12/04/2021, Additional history exists Influenza Vaccine (#1) 2024 , 05/28/2022, 07/30/2018, Additional history exists Cholesterol Screening (Lipid Panel) 06/11/2024 Colorectal Cancer Screening: Colonoscopy 06/11/2024 Depression Screening 06/11/2024 HIV Screening 06/11/2024 Hepatitis C Screening 06/11/2024 Social Influencers of Health Screening 06/11/2024 Hypertension/CHF/CAD Annual BMP Blood Test 06/28/2025 06/28/2024 DTaP,Tdap,and Td Vaccines (2 - Td or Tdap) 07/30/2028 07/30/2018 HIB Vaccines Aged Out No longer eligi ble based on patient's age to complete this topic HPV Vaccines Aged Out No longer eligi ble based on patient's age to complete this topic Hepatitis A Vaccines Aged Out No long er eligible based on patient's age to complete this topic IPV Vaccines Aged Out No longer eligi ble based on patient's age to complete this topic MMR Vaccines Aged Out No longer eligi ble based on patient's age to complete this topic Meningococcal ACWY Vaccine Aged Out N o longer eligible based on patient's age to complete this topic Pneumococcal Vaccine: Pediatrics (0 to 5 Years) and At-Risk Patients (6 to 64 Years) Aged Out No longer eligible based on patient's age to complete this topic RSV Immunization Patients Under 20 months Aged Out No longer eligible based on patient's age to complete this topic Varicella Vaccines Aged Out No longer eligible based on patient's age to complete this topic Medical Devices Implanted Type Area Machine Operator Transplanter Device Identifier Shelf Expiration Date Model / Serial / Lot L-Asr Syed Canc [id number] Fd Fee - [id number] - [id number] Implanted:Qty : 1 on 06/18/2024 by Natalia Marinelli MD at [facility] [employer] Bone N/A: Spine Cervical [employer] 10/17/2036 [id number] / [id number] / [id number] Powder Surgifoam Absorb Gel - S1978 - [id number] Implanted:Qty : 1 on 06/18/2024 by Natalia Marinelli MD at [facility] [employer] N/A: Spine Cervical [employer] 01/13/20261977 / 1977 / [id number] Spinal Hardware Spinal Hardware N/A: Spine Lumbar Screw Cerv [address] 15x3.5mm - S0000 - [id number] Implanted:Qty : 4 on 06/18/2024 by Natalia Marinelli MD at [facility] Spinal Hardware N/A: Spine Cervical [employer] SOFAMOR DANEK [id number] / 0000 / 0000 Plate Spin Cerv Ant Zevo 19mm - Sna - [id number] Implanted:Qty : 1 on 06/18/2024 by Natalia Marinelli MD at [facility] Spinal Hardware N/A: Spine Cervical [employer] [id number] / NA / NA Procedures Procedure Name Priority Date/Time Associated Diagnosis Comments EXTERNAL XRAY REPORT Routine 08/13/2024 2:50 PM EST ECG 12-LEAD STAT 06/28/2024 10:11 AM EST TROPONIN I HIGH SENSITIVITY STAT 06/28/2024 10:03 AM EST XR CHEST 2 VIEWS STAT 06/28/2024 9:32 AM EST CBC WITH AUTO DIFFERENTIAL STAT 06/28/2024 8:20 AM EST B-TYPE NATRIURETIC PEPTIDE STAT 06/28/2024 8:20 AM EST MAGNESIUM STAT 06/28/2024 8:20 AM EST LIPASE STAT 06/28/2024 8:20 AM EST COMPREHENSIVE METABOLIC PANEL STAT 06/28/2024 8:20 AM EST CBC AND DIFFERENTIAL STAT 06/28/2024 8:20 AM EST TROPONIN I HIGH SENSITIVITY STAT 06/28/2024 8:20 AM EST [id number], RSV, FLU A AND B QUALITATIVE RT-PCR, INTERNAL LAB STAT 06/28/2024 8:16 AM EST ECG 12-LEAD STAT 06/28/2024 8:02 AM EST ECG ANNOTATED 06/28/2024 XR SPINE 1 VIEW Routine 06/18/2024 11:27 AM EST Pain TH AN ENDOTRACHEAL(NO CHARGE) Routine 06/18/2024 10:25 AM EST MN ALLOGRAFT STRUCTURAL SPINE SURGERY ONLY 06/18/2024 9:58 AM EST Spinal stenosis, cervical region Case Notes to follow 1st case,C-ARM, [employer],ZEVO,CORNERSTONE MN INSTRUMENTATION ANTERIOR 2-3 VERTEBRAL SEGMENTS 06/18/2024 9:58 AM EST Spinal stenosis, cervical region Case Notes to follow 1st case,C-ARM, [employer],ZEVO,CORNERSTONE MN ARTHRDS ANT I-B DISCECTOMY DECMPR SPINAL CORD/NERVE ROOTS CERV BELOW C2 06/18/2024 9:58 AM EST Spinal stenosis, cervical region Case Notes to follow 1st case,C-ARM, [employer],ZEVO,CORNERSTONE PROCEDURAL ECG Routine 06/18/2024 9:55 AM EST from Last 3 Months Results * External Xray Report (08/13/2024 2:50 PM EST) Anatomical Region Laterality Modality Radiographic Tracey ging Lory KIRK IMG XR PROCEDURES * ECG 12 lead (06/28/2024 10:11 AM EST) Only the most recent of2 resultswithin the time period is included. Ventricular Rate ECG 90 BPM GEMUSE Atrial Rate 288 BPM GEMUSE QRS Duration 128 ms GEMUSE Q-T Interval 384 ms GEMUSE QTc 469 ms GEMUSE R [place] 37 degrees GEMUSE T [place] -16 degrees GEMUSE ECG Interpretation Atrial fibrillation with premature ventricular or aberrantly conducted complexes Right bundle branch block Cannot rule out Inferior infarct , age undetermined T wave abnormality, consider anterior ischemia Abnormal ECG When compared with ECG of 28-JUN-2024 08:02, No significant change was found Confirmed by ED CONNOR ([id number]) on 06/28/2024 2:34:50 PM GEMUSE 06/28/2024 10:1 1 AM EST 06/28/2024 2:34 PM EST Judy Stevens DO ECG ORDERABLES GEMUSE * Troponin I high sensitivity (06/28/2024 10:03 AM EST) Only the most recent of2 resultswithin the time period is included. Pathologist [facility] High Sensitivity Troponin I 8 <=79 ng/L LAB CHEMISTRY METHOD 06/28/2024 10:47 AM EST [facility] Blood Venous blood specimen / Unknown Venipuncture / Unknown 06/28/2024 10:03 AM EST 06/28/2024 10:21 AM EST Narrative [facility] - 06/28/2024 10:47 AM EST High levels of biotin in samples may falsely decrease hsTroponin values. ??Use caution when interpreting hsTroponin results in patients taking biotin who exhibit renal impairment (eGFR <60) or in patients taking more than 20 mg/day of biotin. Roberangella Stevens DO LAB BLOOD ORDERAB LES [facility] ([facility] [address] [place] [address], * XR Chest 2 Views (06/28/2024 9:32 AM EST) Anatomical Region Laterality Modality Body Radiographic Tracey ging 06/28/2024 10:2 3 AM EST Impressions 06/28/2024 10:24 AM EST FINDINGS/IMPRESSION: Left lower lobe opacity suspicious for pneumonia. ??Small left pleural effusion with adjacent atelectasis. ??No pneumothorax. ??Cardiac silhouette is normal in size. ??S-shaped thoracolumbar scoliosis with fracture of the posterior spinal shahid. ??Degenerative changes seen throughout the bones. -------- FINAL REPORT -------- Dictated By: EMERSON SANDRA Dictated Date: 06/28/2024 10:23 ET Assigned Physician: EMERSON SANDRA Reviewed and Electronically Signed By: EMERSON SANDRA Signed Date: 06/28/2024 10:24 ET Workstation ID: [id number] Transcribed By: Self Edit Transcribed Date: 06/28/2024 10:23 ET Narrative 06/28/2024 10:24 AM EST XR CHEST 2 VIEWS INDICATION: ??Chest pain TECHNIQUE: XR CHEST 2 VIEWS COMPARISON: No priors available. Procedure Note Emerson Sandra MD - 06/28/2024 XR CHEST 2 VIEWS INDICATION: Chest pain TECHNIQUE: XR CHEST 2 VIEWS COMPARISON: No priors available. IMPRESSION: FINDINGS/IMPRESSION: Left lower lobe opacity suspicious for pneumonia.Small left pleural effusion with adjacent atelectasis. No pneumothorax.Cardiac silhouette is normal in size. S-shaped thoracolumbar scoliosiswith fracture of the posterior spinal shahid. Degenerative changes seenthroughout the bones. -------- FINAL REPORT -------- Dictated By: EMERSON SANDRA Dictated Date: 06/28/2024 10:23 ET Assigned Physician: EMERSON SANDRA Reviewed and Electronically Signed By: MEERSON SANDRA Signed Date: 06/28/2024 10:24 ET Workstation ID: [id number] Transcribed By: Self Edit Transcribed Date: 06/28/2024 10:23 ET Judy Payne Rodney DO IMG XR PROCEDURES * (ABNORMAL) CBC auto differential (06/28/2024 8:20 AM EST) WBC 4.3(L) 4.8 - 10.8 K/mcL LAB HEMETOLOGY METHOD 06/28/2024 8:35 AM [facility] RBC 5.40 4.50 - 5.50 M/mcL LAB HEMETOLOGY METHOD 06/28/2024 8:35 AM [facility] Hemoglobin 15.8 13.5 - 17.5 g/dL LAB HEMETOLOGY METHOD 06/28/2024 8:35 AM [facility] Hematocrit 48.6 42.0 - 54.0 % LAB HEMETOLOGY METHOD 06/28/2024 8:35 AM [facility] MCV 89.5 79.0 - 98.0 FL LAB HEMETOLOGY METHOD 06/28/2024 8:35 AM [facility] MCH 29.1 27.0 - 32.0 pcg LAB HEMETOLOGY METHOD 06/28/2024 8:35 AM [facility] MCHC 32.5 32.0 - 37.0 g/dL LAB HEMETOLOGY METHOD 06/28/2024 8:35 AM [facility] RDW 13.8 11.0 - 15.0 % LAB HEMETOLOGY METHOD 06/28/2024 8:35 AM [facility] Platelets 106(L) 130 - 400 K/mcL LAB HEMETOLOGY METHOD 06/28/2024 8:35 AM [facility] MPV 10.6 7.0 - 11.0 FL LAB HEMETOLOGY METHOD 06/28/2024 8:35 AM [facility] NRBC 0.0 <1.0 % LAB HEMETOLOGY METHOD 06/28/2024 8:35 AM [facility] NRBC Absolute 0.00 <0.10 K/mcL LAB HEMETOLOGY METHOD 06/28/2024 8:35 AM [facility] Neutrophils Relative 78.3 % LAB HEMETOLOGY METHOD 06/28/2024 8:35 AM [facility] Lymphocytes Relative 8.8 % LAB HEMETOLOGY METHOD 06/28/2024 8:35 AM [facility] Monocytes Relative 11.3 % LAB HEMETOLOGY METHOD 06/28/2024 8:35 AM [facility] Eosinophils Relative 0.9 % LAB HEMETOLOGY METHOD 06/28/2024 8:35 AM [facility] Basophils Relative 0.5 % LAB HEMETOLOGY METHOD 06/28/2024 8:35 AM [facility] Immature Granulocytes Relative 0.2 % LAB HEMETOLOGY METHOD 06/28/2024 8:35 AM [facility] Neutrophils Absolute 3.39 1.50 - 7.00 K/mcL LAB HEMETOLOGY METHOD 06/28/2024 8:35 AM [facility] Lymphocytes Absolute 0.38(L) 1.00 - 5.00 K/mcL LAB HEMETOLOGY METHOD 06/28/2024 8:35 AM [facility] Monocytes Absolute 0.49 0.20 - 1.00 K/mcL LAB HEMETOLOGY METHOD 06/28/2024 8:35 AM EST [facility] Eosinophils Absolute 0.04 0.00 - 0.50 K/[facility] LAB HEMETOLOGY METHOD 06/28/2024 8:35 AM EST [facility] Basophils Absolute 0.02 0.00 - 0.20 K/[facility] LAB HEMETOLOGY METHOD 06/28/2024 8:35 AM EST [facility] Immature Granulocytes Absolute 0.01 0.00 - 0.03 K/[facility] LAB HEMETOLOGY METHOD 06/28/2024 8:35 AM EST [facility] Blood Venous blood specimen / Unknown Venipuncture / Unknown 06/28/2024 8:20 AM EST 06/28/2024 8:23 AM EST Roberangella Stevens LAB BLOOD ORDERAB LES Performing Organization Address City/[facility]/ZIP Co de Phone Number [facility] [address] [place] [address], * (ABNORMAL) B-type natriuretic peptide (06/28/2024 8:20 AM EST) Pathologist [facility] BNP 173(H) <=100 pcg/mL LAB CHEMISTRY METHOD 06/28/2024 9:02 AM EST [facility] Blood Venous blood specimen / Unknown Venipuncture / Unknown 06/28/2024 8:20 AM EST 06/28/2024 8:23 AM EST Judy Kiel Stevens LAB BLOOD ORDERAB LES [facility] [address] [place] [address], [place] [phone] * (ABNORMAL) Magnesium (06/28/2024 8:20 AM EST) Magnesium 1.8(L) 1.9 - 2.6 mg/dL LAB CHEMISTRY METHOD 06/28/2024 9:12 AM EST [facility] Blood Venous blood specimen / Unknown Venipuncture / Unknown 06/28/2024 8:20 AM EST 06/28/2024 8:23 AM EST Judy Stevens LAB BLOOD ORDERAB LES Performing Organization Address City/[facility]/ZIP Co de Phone Number [facility] [address] [place] [address], [place] [phone] * Lipase (06/28/2024 8:20 AM EST) Pathologist [facility] Lipase 47 13 - 75 unit/L LAB CHEMISTRY METHOD 06/28/2024 9:12 AM [facility] Blood Venous blood specimen / Unknown Venipuncture / Unknown 06/28/2024 8:20 AM EST 06/28/2024 8:23 AM EST Judy Stevens LAB BLOOD ORDERAB LES Performing Organization Address City/[facility]/ZIP Co de Phone Number [facility] [address] [place] [address], [place] [phone] * (ABNORMAL) Comprehensive metabolic panel (06/28/2024 8:20 AM EST) Pathologist [facility] Sodium 133 133 - 145 mmol/L LAB CHEMISTRY METHOD 06/28/2024 9:12 AM [facility] Potassium 3.7 3.5 - 5.5 mmol/L LAB CHEMISTRY METHOD 06/28/2024 9:12 AM [facility] Chloride 93(L) 96 - 110 mmol/L LAB CHEMISTRY METHOD 06/28/2024 9:12 AM [facility] CO2 31 21 - 32 mmol/L LAB CHEMISTRY METHOD 06/28/2024 9:12 AM [facility] Anion Gap 9 3 - 11 LAB CHEMISTRY METHOD 06/28/2024 9:12 AM [facility] Glucose 132(H) 70 - 100 mg/dL LAB CHEMISTRY METHOD 06/28/2024 9:12 AM [facility] BUN 23 5 - 25 mg/dL LAB CHEMISTRY METHOD 06/28/2024 9:12 AM [facility] Creatinine 1.28 0.70 - 1.30 mg/dL LAB CHEMISTRY METHOD 06/28/2024 9:12 AM [facility] eGFR 66 >=60 mL/min/1. 73m2 LAB CHEMISTRY METHOD 06/28/2024 9:12 AM [facility] Comment:Calculation based on the??Chronic Kidney Disease Epidemiology Collaboration (CKD-EPI) equation refit??without adjustment for race. BUN/Creatinine Ratio 18.0 LAB CHEMISTRY METHOD 06/28/2024 9:12 AM [facility] Calcium 9.2 8.5 - 10.5 mg/dL LAB CHEMISTRY METHOD 06/28/2024 9:12 AM [facility] AST (SGOT) 78(H) 10 - 42 unit/L LAB CHEMISTRY METHOD 06/28/2024 9:12 AM [facility] ALT (SGPT) 58 10 - 60 unit/L LAB CHEMISTRY METHOD 06/28/2024 9:12 AM [facility] Alkaline Phosphatase 64 42 - 121 unit/L LAB CHEMISTRY METHOD 06/28/2024 9:12 AM [facility] Total Protein 7.1 6.0 - 8.0 g/dL LAB CHEMISTRY METHOD 06/28/2024 9:12 AM [facility] Albumin 3.3 3.2 - 5.0 g/dL LAB CHEMISTRY METHOD 06/28/2024 9:12 AM [facility] Total Bilirubin 0.5 0.0 - 1.4 mg/dL LAB CHEMISTRY METHOD 06/28/2024 9:12 AM [facility] Blood Venous blood specimen / Unknown Venipuncture / Unknown 06/28/2024 8:20 AM EST 06/28/2024 8:23 AM EST Judy Stevens DO LAB BLOOD ORDERAB LES [facility] [address] [place] [address], * [id number], RSV, Influenza A and B qualitative RT-PCR (06/28/2024 8:16 AM EST) Pathologist [facility] Influenza A PCR Not Detected Not Detected LAB MICROBIOLOGY METHOD 06/28/2024 8:59 AM EST [facility] Influenza B PCR Not Detected Not Detected LAB MICROBIOLOGY METHOD 06/28/2024 8:59 AM EST [facility] RSV PCR Not Detected Not Detected LAB MICROBIOLOGY METHOD 06/28/2024 8:59 AM EST [facility] SARS COV-2 Not Detected Not Detected LAB MICROBIOLOGY METHOD 06/28/2024 8:59 AM EST [facility] Swab Both anterior nares / Unknown Non-blood Collection / Unknown 06/28/2024 8:16 AM EST 06/28/2024 8:18 AM EST Narrative [facility] - 06/28/2024 8:59 AM EST Disclaimer: ??Testing was performed using the [employer] GeneXpert Xpress SARS-CoV-2 _Flu_RSV PLUS PCR assay. ??The manner in which this information is used to guide patient care is the responsibility of the healthcare provider. ??Results should be correlated with the clinical history, epidemiological data, and other data available to the clinician evaluating the patient. ??Negative results do not preclude infection. ??This test has been authorized by the FDA under an Emergency Use Authorization (EUA). ??This test is only authorized for the duration of time the declaration that circumstances exist justifying the authorization of the emergency use of in vitro diagnostic tests for detection of SARS-CoV-2 virus and/or diagnosis of COVID-19 infection under section 564 (b) (1) of the Act, 21 U.S.C 360bbb-3 (b) (1), unless the authorization is terminated or revoked sooner. ?? Reference Range: Not Detected Fact sheet for Healthcare providers can be found at https://www.fda.gov/media/286563/download. ?? Fact sheet for Healthcare patients can be found at https://www.fda.gov/media/141794/download. Judy Johansenny Rodney DO LAB MICROBIOLOGY - GENERAL ORDERABLES [facility] ([facility] [address] [place] [address], * ECG-Annotated (06/28/2024) Provider Onbase MD ECG ORDERABLES * XR Spine 1 View (06/18/2024 11:27 AM EST) Anatomical Region Laterality Modality Spine Radio Fluoroscop y 06/18/2024 11:3 4 AM EST Impressions 06/18/2024 11:36 AM EST Satisfactory appearance on lateral projection following anterior fusion at the C3-4 level. Code 66316 The dose-area product for this procedure was 21.90 uGy*m2. PQRI CPT II G9500 CT Teleradiology -------- FINAL REPORT -------- Dictated By: Hung Glass Dictated Date: 06/18/2024 11:34 ET Assigned Physician: Hung Glass Reviewed and Electronically Signed By: Hung Glass Signed Date: 06/18/2024 11:36 ET Workstation ID: [id number] Transcribed By: Self Edit Transcribed Date: 06/18/2024 11:34 ET Narrative 06/18/2024 11:36 AM EST HISTORY: The patient is a 58-year-old male undergoing cervical spine surgery. FINDINGS: 3 fluoroscopic spot lateral views of the cervical spine obtained in the operating room are submitted. ??The first image demonstrates a metallic probe projecting over the anterior aspect of the C3-4 interspace. ??The second and third images document performance of anterior fusion with placement of a disc spacer at the C3-4 level. ??The surgical hardware appears well-positioned and intact, and alignment appears anatomic. Procedure Note Hung Glass MD - 06/18/2024 HISTORY: The patient is a 58-year-old male undergoing cervical spinesurgery. FINDINGS: 3 fluoroscopic spot lateral views of the cervical spine obtainedin the operating room are submitted. The first image demonstrates ametallic probe projecting over the anterior aspect of the C3-4 interspace.The second and third images document performance of anterior fusion withplacement of a disc spacer at the C3-4 level. The surgical hardwareappears well-positioned and intact, and alignment appears anatomic. IMPRESSION: Satisfactory appearance on lateral projection following anterior fusion atthe C3-4 level. Code 30545 The dose-area product for this procedure was 21.90 uGy*m2. PQRI CPT II G9500 CT Teleradiology -------- FINAL REPORT -------- Dictated By: Hung Glass Dictated Date: 06/18/2024 11:34 ET Assigned Physician: Hung Glass Reviewed and Electronically Signed By: Hung Glass Signed Date: 06/18/2024 11:36 ET Workstation ID: [id number] Transcribed By: Self Edit Transcribed Date: 06/18/2024 11:34 ET Natalia Marinelli MD IMG XR PROCEDURES * TH AN ENDOTRACHEAL(NO CHARGE) (06/18/2024 10:25 AM EST) Niurka Jha CRNA - 06/18/2024 10:25 AM EST Niurka Lucio CRNA ? 06/18/2024 10:28 AM General Information and Staff Patient location during procedure: OR Resident/COPY AND PRINT ASSOCIATE: Niurka Lucio CRNA Performed: resident/LAURI/CAA Performed by: Niurka Lucio CRNA Authorized by: Toro Schilling MD ?? Intubation Additional Comments Patient positioned awake due to severe limited ROM of cervical spine. Head supported with gel donut and multiple pillows. Elective GS used 2/2 severe cervical ROM deficit. Easy mask with OPA, grade I view with GS. Head and neck positioned after intubation by surgeon. Urgency: elective Final Airway Details Successful airway: ETT Cuffed: yes Successful intubation technique: video laryngoscopy Blade: Errol Blade size: #4 ETT size (mm): 8.0 Cormack-Lehane Classification: grade I - full view of glottis Measured from: lips ETT to lips (cm): 22 Number of attempts at approach: 1Final airway type: endotracheal airway Indications and Patient Condition Indications for airway management: anesthesia and airway protection Spontaneous ventilation: present Sedation level: Yes Preoxygenated: yes Soft Tissue Damage: No Dentition Unchanged: Yes Patient position: ramp MILS maintained throughout Mask difficulty assessment: 2 - vent by mask + OA or adjuvant +/- NMBA Toro Schilling MD ANESTHESIA ORDERABLE S * ECG 12 lead - Procedural (No Charge) (06/18/2024 9:55 AM EST) Ventricular Rate ECG 59 BPM GEMUSE Atrial Rate 129 BPM GEMUSE QRS Duration 120 ms GEMUSE Q-T Interval 434 ms GEMUSE QTc 429 ms GEMUSE R [place] 52 degrees GEMUSE T [place] 19 degrees GEMUSE ECG Interpretation Atrial fibrillation with slow ventricular response Incomplete right bundle branch block Abnormal ECG No previous ECGs available Confirmed by Darby YANG, ISIDRO ([id number]) on 06/18/2024 5:27:40 PM GEMUSE 06/18/2024 9:55 AM EST 06/18/2024 5:27 PM EST Gentry KIRK ECG ORDERABLES GEMUSE from Last 3 Months Advance Directives * Full Code - Default (Latest Code Status on File) Date Activated Date Inactivated Comments 06/18/2024 9:08 AM 06/18/2024 5:05 PM This is orde r is used when code status has not been discussed with the patient, or code status is otherwise unknown/unconfirmed To update the patient's code status, place a code status order. Do not modify or discontinue any currently active code status orders. * Full Code - Default Date Activated Date Inactivated Comments 06/18/2024 9:08 AM 06/18/2024 9:08 AM This is orde r is used when code status has not been discussed with the patient, or code status is otherwise unknown/unconfirmed To update the patient's code status, place a code status order. Do not modify or discontinue any currently active code status orders. Care Teams Boat Garnisher Relationship Specialty Start Date End Date Anthony Ruiz MD [address] [place] [address] [address] [facility] [place] [address] PCP - General Internal Medicine 01/26/21
== END 2024-09-09 10:04 | disposition home or self-care (01) ==
PROVIDERS: PCP Internal Medicine; Visit Provider Nurse Practitioner Psychiatric/Mental Health
DX: F11.90 Opioid use, unspecified, uncomplicated (principal); F11.20 Opioid dependence, uncomplicated
CPT/HCPCS: 99213

== ENCOUNTER → 2024-09-09 09:31 | Outpatient (BNVA) | payer OTHER, SELFPAY | PROVIDERS: PCP Internal Medicine; Visit Provider Nurse Practitioner Psychiatric/Mental Health | DX: F11.20 Opioid dependence, uncomplicated (principal) | CPT/HCPCS: 96372; Q9991 ==

== ENCOUNTER 2024-10-15 08:51 | Outpatient (AMB) | payer OTHER, SELFPAY ==
[2024-10-15 08:16] VITALS: BP 120/65; PULSE 88; RESP 19; O2SAT 99
--- NOTE | 2024-10-15 09:09 | AM.OFFVISNUR ---
Vital Signs 10/15/24 08:16 BP 120/65 Blood Pressure Location Lt brachial Position Sitting Respiration 19 Pulse 88 Pulse Oximetry (%) 99 Oxygen Delivery Method Room Air Intake Visit Reasons: Sublocade Injection Allergies No Known Allergies Allergy (Verified 02/03/24 12:53) Nursing Note Patient Presents for sublocade Injection. Current Dose 100mg. Given in the LLQ with no noted or stated complication. Denies any issues with previous injection. Denies symptoms, and denies any break through cravings. Will follow up with RN in 4 weeks for injection. Office Meds Sublocade 100 mg/0.5 mL solution,extended release subcutaneous syringe Performing Provider: Nyasia Miguel CNP Performing Location: [facility] Administered by: Mercedes Sorensen RN on 10/15/24 08:17 Dose Route Admin Location Dispensed Lot Number Expiration Date [facility] Ha[employer] 100 mg subcut LLQ 0.5 mL [id number] 09/12/25 [address]-5 [employer]. Assessment & Plan Assessment & Plan Orders: Orders AMB Buprenorphine Injection 10/15/24 F11.90 - Opioid use, unspecified, uncomplicated Medications: New Sublocade ER (buprenorphine) 100 mg (0.5 mL) subcut ONCE 0.5 mL 0RF NS F11.90 - Opioid use, unspecified, uncomplicated Coding
--- OUTSIDE RECORDS SUMMARY | 2024-10-15 09:36 | XMS_ITS | Clinical Summary ---
Author Organization [facility] Address [address] [place] [address] Phone Care Team Providers Care Public Health Training Assistant Name Role Phone Anthony Ruiz MD Primary Care Provider [phone] Allergies No known active allergies Medications guselkumab [...] no instability on the flexion-extension x-rays from [place] yesterday though there is a little gap [...] is requesting to get them done at [facility], order faxed over. All postop questions answered. I asked him to call with any concerns or questions prior to his next appointment. Encounters Date Type Department Care Team Description 08/14/2024 1:45 PM EST Office Visit Neurosurgery [facility] [address] [place] [address] Natalia Marinelli MD Cervical spondylitic [...] this topic Medical Devices Implanted Type Area Inserter Device Identifier Shelf Expiration Date Model / Serial / Lot L-Asr Syed Canc [id number] Fd Fee - [id number] - [id number] Implanted:Qty : 1 on 06/18/2024 by Natalia Marinelli MD at [facility] [employer] Bone N/A: Spine Cervical [employer] 10/17/2036 [id number] / [id number] / [id number] Powder Surgifoam Absorb Gel - S1978 - [id number] Implanted:Qty : 1 on 06/18/2024 by Natalia Marinelli MD at [facility] [employer] N/A: Spine Cervical [employer] 01/13/20261977 / [id number] Spinal Hardware Spinal Hardware N/A: Spine Lumbar Screw Cerv Porf[address] 15x3.5mm - S0000 - [id number] Implanted:Qty : 4 on 06/18/2024 by Natalia Marinelli MD at [facility] Spinal Hardware N/A: Spine Cervical [employer] SOF[employer]ANE[employer] [id number] / 0000 / 0000 Plate Spin Cerv Ant Zevo 19mm - Sna - [id number] Implanted:Qty : 1 on 06/18/2024 by Natalia Marinelli MD at [facility] Spinal Hardware N/A: Spine Cervical [employer] [id number] / NA / NA Procedures Procedure Name [...] DO LAB BLOOD ORDERABLES Ioana l Result [facility] [address] [place] [address], from Last 3 Months or Most Recently Relevant to Health Maintenance Insurance [facility] Advance Directives * Full Code - Default [...] currently active code status orders. Care Teams Public Health Training Assistant Relationship Specialty Start Date End Date Anthony Ruiz MD [address] [place] [address] [address] [facility] [place] [address] PCP - General Internal Medicine 01/26/21
== END 2024-10-15 09:28 | disposition home or self-care (01) ==
PROVIDERS: PCP Internal Medicine
DX: F11.90 Opioid use, unspecified, uncomplicated (principal)

== ENCOUNTER → 2024-10-15 08:51 | Outpatient (BNVA) | payer OTHER, SELFPAY | PROVIDERS: PCP Internal Medicine | DX: F11.90 Opioid use, unspecified, uncomplicated (principal) | CPT/HCPCS: 96372; Q9991 ==

== ENCOUNTER 2024-11-19 09:08 | Outpatient (AMB) | payer OTHER, SELFPAY ==
--- OUTSIDE RECORDS SUMMARY | 2024-11-19 09:45 | XMS_ITS | Clinical Summary ---
Author Organization [facility] Address [address] [place] [address] Phone Care Team Providers Care Wing Coverer Name Role Phone Anthony Ruiz MD Primary Care Provider [phone] Allergies No known active allergies Medications guselkumab [...] no instability on the flexion-extension x-rays from [place] yesterday though there is a little gap [...] is requesting to get them done at [facility], order faxed over. All postop questions answered. I asked him to call with any concerns or questions prior to his next appointment. Immunizations Name Administration Dates Next Due Influenza [...] COMM ENT: morbid Scoliosis DX:Scoliosis Atrial fibrillation ([facility] V24, [facility] V28) DX:Atrial fibrillation (HCC) ; COMMENT: unknown how long in found when had recent echo no tx Essential hypertension DX:Essent ial hypertension Adverse effect of anesthesia CHF (congestive heart failur e) ([facility] V24, [facility] V28) Arrhythmia A-fib ([facility] V24, [facility] V28) Irregular heart beat History of transfusion Arthritis [...] 2024 05/16/2023, 05/28/2022, 12/04/2021, Additional history exists Cholesterol Screening (Lipid Panel) 06/11/2024 Colorectal Cancer Screening: Colonoscopy 06/11/2024 Depression Screening 06/11/2024 HIV Screening 06/11/2024 Hepatitis C Screening 06/11/2024 Social Influencers of Health Screening 06/11/2024 Influenza Vaccine (Season Ended) 2025 03/20/2023, 05/28/2022, 07/30/2018, Additional history exists Hypertension/CHF/CAD Annual BMP Blood Test 06/28/2025 06/28/2024 [...] age to complete this topic Meningococcal B Vaccine Aged Out No l onger eligible based on patient's age to complete [...] this topic Medical Devices Implanted Type Area Managing Consultant Device Identifier Shelf Expiration Date Model / Serial / Lot L-Asr Syed Canc [id number] Fd Fee - [id number] - [id number] Implanted:Qty : 1 on 06/18/2024 by Natalia Marinelli MD at [facility] [employer] Bone N/A: Spine Cervical [employer] 10/17/2036 [id number] / [id number] / [id number] Powder Surgifoam Absorb Gel - S1978 - [id number] Implanted:Qty : 1 on 06/18/2024 by Natalia Marinelli MD at [facility] [employer] N/A: Spine Cervical [employer] 01/13/20261977 / [id number] Spinal Hardware Spinal Hardware N/A: Spine Lumbar Screw Cerv Porf[address]io St 15x3.5mm - S0000 - [id number] Implanted:Qty : 4 on 06/18/2024 by Natalia Marinelli MD at [facility] Spinal Hardware N/A: Spine Cervical [employer] [id number] / 0000 / 0000 Plate Spin Cerv Ant Zevo 19mm - Sna - [id number] Implanted:Qty : 1 on 06/18/2024 by Natalia Marinelli MD at [facility] Spinal Hardware N/A: Spine Cervical [employer] [id number] / NA / NA Procedures Procedure Name Priority Date/Time Associated Diagnosis Comments COMPREHENSIVE METABOLIC PANEL STAT 06/28/2024 8:20 AM EST from Last 3 Months or Most Recently Relevant to Health Maintenance Results * (ABNORMAL) Comprehensive metabolic panel (06/28/2024 8:20 AM EST) Sodium 133 133 - 145 mmol/L LAB CHEMISTRY METHOD 06/28/2024 9:12 AM [facility] Potassium 3.7 3.5 - 5.5 mmol/L LAB CHEMISTRY METHOD 06/28/2024 9:12 AM [facility] Chloride 93(L) 96 - 110 mmol/L LAB CHEMISTRY METHOD 06/28/2024 9:12 AM [facility] CO2 31 21 - 32 mmol/L LAB CHEMISTRY METHOD 06/28/2024 9:12 AM [facility] Anion Gap 9 3 - 11 LAB CHEMISTRY METHOD 06/28/2024 9:12 AM [facility] Glucose 132(H) 70 - 100 mg/dL LAB CHEMISTRY METHOD 06/28/2024 9:12 AM [facility] BUN 23 5 - 25 mg/dL LAB CHEMISTRY METHOD 06/28/2024 9:12 AM [facility] Creatinine 1.28 0.70 - 1.30 mg/dL LAB CHEMISTRY METHOD 06/28/2024 9:12 AM [facility] eGFR 66 >=60 mL/min/1. 73m2 LAB CHEMISTRY METHOD 06/28/2024 9:12 AM [facility] Comment:Calculation based on the??Chronic Kidney Disease Epidemiology Collaboration (CKD-EPI) equation refit??without adjustment for race. BUN/Creatinine Ratio 18.0 LAB CHEMISTRY METHOD 06/28/2024 9:12 AM [facility] Calcium 9.2 8.5 - 10.5 mg/dL LAB CHEMISTRY METHOD 06/28/2024 9:12 AM [facility] AST (SGOT) 78(H) 10 - 42 unit/L LAB CHEMISTRY METHOD 06/28/2024 9:12 AM [facility] ALT (SGPT) 58 10 - 60 unit/L LAB CHEMISTRY METHOD 06/28/2024 9:12 AM EST [facility] Alkaline Phosphatase 64 42 - 121 unit/L LAB CHEMISTRY METHOD 06/28/2024 9:12 AM EST [facility] Total Protein 7.1 6.0 - 8.0 g/dL LAB CHEMISTRY METHOD 06/28/2024 9:12 AM EST [facility] Albumin 3.3 3.2 - 5.0 g/dL LAB CHEMISTRY METHOD 06/28/2024 9:12 AM EST [facility] Total Bilirubin 0.5 0.0 - 1.4 mg/dL LAB CHEMISTRY METHOD 06/28/2024 9:12 AM [facility] Blood Venous blood specimen / Unknown Venipuncture / Unknown 06/28/2024 8:20 AM EST 06/28/2024 8:23 AM EST [facility] [[email or web address]] Kiel Stevens DO LAB BLOOD ORDERABLES Ioana l Result [facility] [address] [place] [address], from Last 3 Months or Most Recently Relevant to Health Maintenance Insurance [facility] Advance Directives * Full Code - Default [...] currently active code status orders. Care Teams Wing Coverer Relationship Specialty Start Date End Date Po, MD Anthony [address] [place] [address] [address] [facility] [place] [address] PCP - General Internal Medicine 01/26/21
--- NOTE | 2024-11-19 11:07 | AM.OFFVISNUR ---
Intake Visit Reasons: Sublocade Injection Allergies No Known Allergies Allergy (Verified 02/03/24 12:53) Nursing Note Patient Presents for Sublocade Injection. Current Dose 100mg . Given in the with LIZET no noted or stated complications. Denies any issues with previous injection. Denies symptoms, and denies any break through cravings. Will follow up with RN in 4 weeks for injection. Office Meds Sublocade 100 mg/0.5 mL solution,extended release subcutaneous syringe Performing Provider: Dana Jo MD Performing Location: [facility] Administered by: Mercedes Sorensen RN on 11/19/24 11:25 Dose Route Admin Location Dispensed Lot Number Expiration Date [facility] Director Of Content And Programming 100 mg subcut LLQ 0.5 mL [id number] 10/10/25 [address]-8 [employer]. Assessment & Plan Assessment & Plan Orders: Orders AMB Buprenorphine Injection Today F11.90 - Opioid use, unspecified, uncomplicated Medications: New Sublocade ER (buprenorphine) 100 mg (0.5 mL) subcut ONCE 0.5 mL 0RF NS F11.90 - Opioid use, unspecified, uncomplicated Coding
== END 2024-11-19 09:50 | disposition home or self-care (01) ==
LOC: HO.HCC 09:09
PROVIDERS: PCP Internal Medicine
DX: F11.90 Opioid use, unspecified, uncomplicated (principal)

== ENCOUNTER → 2024-11-19 09:08 | Outpatient (BNVA) | payer OTHER, SELFPAY | PROVIDERS: PCP Internal Medicine | DX: F11.90 Opioid use, unspecified, uncomplicated (principal) | CPT/HCPCS: 96372; Q9991 ==

== ENCOUNTER 2024-12-15 09:32 | Day surgery (SDC) | payer OTHER, SELFPAY ==
--- OUTSIDE RECORDS SUMMARY | 2024-10-14 13:46 | XMS_ITS | Clinical Summary ---
Author Organization [facility] Address [address] [place] [address] Phone Care Team Providers Care Concierge Receptionist Name Role Phone Anthony Ruiz MD Primary Care Provider [phone] Allergies No known active allergies Medications guselkumab (Tremfya) 100 mg/mL injection Inject 1 [...] mg total) under the skin every 28 (twenty-eig ht) days. Active Active Problems Problem Noted Date [...] no instability on the flexion-extension x-rays from [place] yesterday though there is a little gap [...] is requesting to get them done at [facility], order faxed over. All postop questions answered. I asked him to call with any concerns or questions prior to his next appointment. Encounters Date Type Department Care Team Description 08/14/2024 1:45 PM EST Office Visit Neurosurgery [facility] [address] [place] [address] Natalia Marinelli MD Cervical spondylitic cord compression (Primary Dx) from Last 3 Months Immunizations Name Administration [...] Assigned at Male 06/17/2024 9:01 AM EST Legal Sex Male 8:21 PM EST Gender Identity Male 06/17/2024 9:01 AM EST Sexual Orientation Straight 06/17/2024 9: 01 AM EST Obstetrics History Last Filed Vital Signs Vital [...] of 3 - 19+ 3-dose series) 1986 Pneumococcal Vaccine: 50+ Years (1 of 1 - PCV) 2017 Zoster Vaccines (1 of 2) 2017 COVID-19 [...] patient's age to complete this topic Meningococcal B Vacine Aged Out No lo nger eligible based on patient's age to complete [...] this topic Medical Devices Implanted Type Area Kindergartners Helper Device Identifier Shelf Expiration Date Model / Serial / Lot L-Asr Syed Canc [id number] Fd Fee - [id number] - [id number] Implanted:Qty : 1 on 06/18/2024 by Natalia Marinelli MD at [facility] [employer] Bone N/A: Spine Cervical [employer] 10/17/2036 [id number] / [id number] / [id number] Powder Surgifoam Absorb Gel - S1978 - [id number] Implanted:Qty : 1 on 06/18/2024 by Natalia Marinelli MD at [facility] [employer] N/A: Spine Cervical [employer] 01/13/20261977 / [id number] Spinal Hardware Spinal Hardware N/A: Spine Lumbar Screw Cerv Porfirio St 15x3.5mm - S0000 - [id number] Implanted:Qty : 4 on 06/18/2024 by Natalia Marinelli MD at [facility] Spinal Hardware N/A: Spine Cervical [employer] SOF[employer] DANEK [id number] / 0000 / 0000 Plate Spin Cerv Ant Zevo 19mm - Sna - [id number] Implanted:Qty : 1 on 06/18/2024 by Natalia Marinelli MD at [facility] Spinal Hardware N/A: Spine Cervical [employer] SO[employer]K [id number] / NA / NA Procedures Procedure Name Priority Date/Time Associated Diagnosis Comments EXTERNAL XRAY REPORT Routine 08/13/2024 2:50 PM EST COMPREHENSIVE METABOLIC PANEL STAT 06/28/2024 8:20 AM EST from Last 3 Months or Most Recently Relevant to Health Maintenance Results * External Xray Report (08/13/2024 2:50 PM EST) Anatomical Region Laterality Modality Radiographic Tracey ging Lory KIRK IMG XR PROCEDURES Final Re sult * (ABNORMAL) Comprehensive metabolic panel (06/28/2024 8:20 AM EST) Sodium 133 133 - 145 mmol/L LAB CHEMISTRY METHOD 06/28/2024 9:12 AM [facility] Potassium 3.7 3.5 - 5.5 mmol/L LAB CHEMISTRY METHOD 06/28/2024 9:12 AM [facility] Chloride 93(L) 96 - 110 mmol/L LAB CHEMISTRY METHOD 06/28/2024 9:12 AM [facility] CO2 31 21 - 32 mmol/L LAB CHEMISTRY METHOD 06/28/2024 9:12 AM [facility] Anion Gap 9 3 - 11 LAB CHEMISTRY METHOD 06/28/2024 9:12 AM [facility] Glucose 132(H) 70 - 100 mg/dL LAB CHEMISTRY METHOD 06/28/2024 9:12 AM [facility] BUN 23 5 - 25 mg/dL LAB CHEMISTRY METHOD 06/28/2024 9:12 AM [facility] Creatinine 1.28 0.70 - 1.30 mg/dL LAB CHEMISTRY METHOD 06/28/2024 9:12 AM [facility] eGFR 66 >=60 mL/min/1. 73m2 LAB CHEMISTRY METHOD 06/28/2024 9:12 AM [facility] Comment:Calculation based on the??Chronic Kidney Disease Epidemiology Collaboration (CKD-EPI) equation refit??without adjustment for race. BUN/Creatinine Ratio 18.0 LAB CHEMISTRY METHOD 06/28/2024 9:12 AM [facility] Calcium 9.2 8.5 - 10.5 mg/dL LAB CHEMISTRY METHOD 06/28/2024 9:12 AM [facility] AST (SGOT) 78(H) 10 - 42 unit/L LAB CHEMISTRY METHOD 06/28/2024 9:12 AM [facility] ALT (SGPT) 58 10 - 60 unit/L LAB CHEMISTRY METHOD 06/28/2024 9:12 AM [facility] Alkaline Phosphatase 64 42 - 121 unit/L LAB CHEMISTRY METHOD 06/28/2024 9:12 AM [facility] Total Protein 7.1 6.0 - 8.0 g/dL LAB CHEMISTRY METHOD 06/28/2024 9:12 AM [facility] Albumin 3.3 3.2 - 5.0 g/dL LAB CHEMISTRY METHOD 06/28/2024 9:12 AM [facility] Total Bilirubin 0.5 0.0 - 1.4 mg/dL LAB CHEMISTRY METHOD 06/28/2024 9:12 AM [facility] Blood Venous blood specimen / Unknown Venipuncture / Unknown 06/28/2024 8:20 AM EST 06/28/2024 8:23 AM EST Judy Stevens DO LAB BLOOD ORDERABLES Ioana l Result [facility] [address] [place] [address], from Last 3 Months or Most Recently Relevant to Health Maintenance Insurance [facility] Advance Directives * Full Code - Default [...] currently active code status orders. Care Teams Concierge Receptionist Relationship Specialty Start Date End Date Anthony Ruiz MD [address] [place] [address] [address] [facility] [place] [address] PCP - General Internal Medicine 01/26/21
[2024-11-20 14:40] VITALS: BMI 26.0
--- NOTE | 2024-12-14 13:11 | P.CONAN_ITS ---
Documented by User: Nabila Whitmore NP 12/14/24 13:24 HPI - Anesthesia Eval Consult details Narrative: 59yo M for Colonoscopy [place] [facility] for: atrial fibrillation (eliquis), congestive heart failure, history of atrial septal defect closure 2008. Last office visit 05/2024 and deemed optimized for cspine surgery with excellent exercise tolerance. ? Sublocade injection for hx opioid use disorder PMFSH Active Problems Active Problems: All Active Problems NICKY (acute kidney injury) (Acute) Left lower lobe pneumonia (Acute) Preoperative cardiovascular examination (Acute) Cervical spinal stenosis (Acute) Spinal cord compression (Acute) Spondylolisthesis, cervical region (Acute) Opioid dependence (Acute) Colon cancer screening (Acute) NICM (nonischemic cardiomyopathy) (Acute) Chronic right heart failure (Acute) Essential hypertension (Acute) Morbid obesity (Acute) Persistent atrial fibrillation (Acute) Status post atrial septal defect closure (Acute) Chondrocalcinosis articularis (Acute) Cervical spondylosis (Acute) Obstructive sleep apnea (Acute) Chronic low back pain (Acute) Atrial fibrillation (Acute) Psoriasis (Acute) Hypercholesterolemia (Acute) Past Medical History Medical History (Updated 11/20/24 @ 14:33 by Noemi Nolen RN) Cervical spondylosis Synovial cyst of popliteal space [Lyle], left knee COVID-19 virus infection Biceps tendon rupture Atrial septal defect Obstructive sleep apnea Chronic low back pain Obesity (BMI 30-39.9) Atrial fibrillation Psoriasis Hypercholesterolemia Left wrist tendinitis Family History Family History Father No problems noted. Mother No problems noted. Surgical History Surgical History (Updated 11/20/24 @ 14:39 by Noemi Nolen RN) Hx of fusion of cervical spine H/O umbilical hernia repair H/O arthroscopic knee surgery History of repair of atrial septal defect H/O spinal fusion Social History Social History Housing: House Alcohol intake: unknown Patient Tobacco Use Status: Never used Tobacco e-Cigarette/Vaping Use: Never Used Second Hand Smoke Exposure: No Have you been hit, kicked, punched, or otherwise hurt by someone within the past year? If so, by whom?: No Are you DNR?: No Advance Directives: No Advance Directives Information Provided: Yes service: No Current occupational status: employed Current occupation: [employer] - Left Handed Cognitive needs: No Hearing needs: No Vision needs: No Meds Allergies Allergy/AdvReac Type Severity Reaction Status Date / Time No Known Allergies Allergy Verified 02/03/24 12:53 Home Medications ?Medication ?Instructions ?Recorded ?Confirmed ?Last Taken ?Type buprenorphine 100 mg/0.5 mL 100 mg subcut QMONTH 12/15/24 11/17/24 History solution,exten.rel.subcutaneous syringe (Sublocade) Exam Height,Weight and Vital Signs: Height 5 ft 9 in Weight 79.832 kg Narrative Narrative: ECHO 2023 Conclusions: - The left ventricular systolic function is low normal. The visually estimated ejection fraction is between 50-55%. - Severely increased right ventricular cavity size. - Severe biatrial enlargement. - No obvious valvular pathology seen on this study. EKG 2023 Details: EKG with atrial fibrillation at a rate of 58/Min; RSR' pattern suggesting RV conduction delay. 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 Mother No problems noted. Family history of problems with anesthesia: No Surgical History Surgical History (Updated 11/20/24 @ 14:39 by Noemi Nolen RN) Hx of fusion of cervical spine H/O umbilical hernia repair H/O arthroscopic knee surgery History of repair of atrial septal defect H/O spinal fusion History of Problems with Anesthesia: No Social History Social History Housing: House Alcohol intake: unknown Patient Tobacco Use Status: Never used Tobacco e-Cigarette/Vaping Use: Never Used Second Hand Smoke Exposure: No Have you been hit, kicked, punched, or otherwise hurt by someone within the past year? If so, by whom?: No Are you DNR?: No Advance Directives: No Advance Directives Information Provided: Yes service: No Current occupational status: employed Current occupation: [employer] - Left Handed Cognitive needs: No Hearing needs: No Vision needs: No Meds Allergies Allergy/AdvReac Type Severity Reaction Status Date / Time No Known Allergies Allergy Verified 02/03/24 12:53 Home Medications ?Medication ?Instructions ?Recorded ?Confirmed ?Last Taken ?Type buprenorphine 100 mg/0.5 mL 100 mg subcut QMONTH 12/15/24 11/17/24 History solution,exten.rel.subcutaneous syringe (Sublocade) Exam Airway Mallampati Class: II TM Dist: >3cm Neck ROM: Full Heart: see above Lungs: ok Assessment and Plan Assessment Anesthesia Assessment: Anesthesia Plan Discussed Final Anesthetic Review Family History of Problems with Anesthesia: No History of Problems with Anesthesia: No NPO: Yes ASA Class: III Final Preanesthetic Review: No Changes in Pt Med Stat, Meds/Allgs Chart Reviewed, Consent Obtained/Reviewed and Anes Risks/Benef Reviewed Patient Risk: High Procedure Risk: Low Anesthetic Plan Anesthetic Plan: MAC: and Agree w/ Assess. and Plan Disposition: Standard PACU
[2024-12-15 10:00] VITALS: BP 124/67; PULSE 71; RESP 18; TEMP 36.6; O2SAT 97; BMI 26.1
[2024-12-15] MEDS: Lactated Ringers 1,000 ML 50 ML IVCONT (10:19)
--- NOTE | 2024-12-15 10:21 | PC.NURSE ---
pt first colonscopy
[2024-12-15 10:32] LABS: Amphetamine Screen Urine Not Detected (Not Detect); Barbiturates, Urine Not Detected (Not Detect); Benzodiazepines Screen Urine Not Detected (Not Detect); Buprenorphine Scr Positive (Not Detect); Cannabinoid Screen Urine Not Detected (Not Detect); Cocaine Screen Urine Not Detected (Not Detect); Fentanyl, urine Not Detected (Not Detect); Methadone Screen, Urine Not Detected (Not Detect); Opiate Screen Urine Not Detected (Not Detect); Oxycodone Screen Urine Not Detected (Not Detect); Phencyclidine Screen Urine Not Detected (Not Detect)
--- NOTE | 2024-12-15 10:36 | MHC.SHP ---
Pre-Procedural Eval Section A - 24 Hr Update-Section A only Date of Service: 12/15/24 Section B - Complete if H&P > 30 days Chief Complaint: screening Relevant Family History (Specify if Yes): No Relevant Social History: None Present Medications: see Short Stay Collaborative assessment Medical History: Significant History (Cervical spondylosis Synovial cyst of popliteal space [Lyle], left knee COVID-19 virus infection Biceps tendon rupture Atrial septal defect Obstructive sleep apnea Chronic low back pain Obesity (BMI 30-39.9) Atrial fibrillation Psoriasis Hypercholesterolemia Left wrist tendinitis) History of Previous Operations: Relevant previous surgery/procedure and date(s) (Hx of fusion of cervical spine H/O umbilical hernia repair H/O arthroscopic knee surgery History of repair of atrial septal defect H/O spinal fusion) Allergies: Allergies Allergy/AdvReac Type Severity Reaction Status Date / Time No Known Allergies Allergy Verified 02/03/24 12:53 Review of Systems Sugical H&P ROS: Negative: Constitution, Cardiovascular, Respiratory, Neurological, Psychiatric, Hem-Onc, Allergic/Immunologic, Gastrointestinal, Genitourinary, Musculoskeletal, Integumentary, Endocrine and Eyes/Ears/Nose/Throat Exam Surgical H&P Exam: Normal: HEENT, Normal: Heart, Normal: Lungs, Normal: Extremities, Normal: Abdomen, Normal: Skin and Normal: Neurological Plan Diagnosis/Plan: Unchanged I have reviewed the history and physical and performed a pertinent physical examination on my patient. No changes have occurred unless specified. Time Spent With Patient Time: Total time managing care of this patient today ____ minutes.
--- NOTE | 2024-12-15 11:41 | P.OPN-COLO_ITS ---
Colonoscopy Operative Note Operative Note Date of Service: 12/15/24 Narrative: Operative Information Procedure Description: Colonoscopy Indication: [] Anesthesia: MAC COLONOSCOPY Instrument: Olympus variable stiffness ADULT scope 190L Colonoscopy Monitoring: Vital signs and clinical assessment, continuous EKG monitoring, Pulse oximetry, Carbon Dioxide monitoring and blood pressure monitoring were done throughout the procedure. Colon withdrawal time was minutes. Procedure: The patient was placed in the left lateral decubitis position and pre-procedure medications were administered. After a digital rectal examination of the ano-rectum, the video colonoscope was inserted into the rectum and advanced through the colon to the cecum/TI. The colonoscope was slowly withdrawn in a retrograde panoramic fashion and the colon mucosa was carefully examined including a retroflexed view of the rectum. Findings and interventions are described below. Procedure Difficulty: 7 Findings: Terminal Ileum-normal Cecum:normal Ascending Colon: 8-10 mm sessile polyp, lifted with eleview and removed with cold snare Transverse Colon -normal Descending Colon:normal Sigmoid Colon: mild diverticulosis Rectum: Retroflexion with small internal hemorrhoids seen, grade I Anorectum - normal Intervention: cold snare and eleview injection Colon preparation: [place] Bowel Preparation Scale Right colon; 2 Transverse colon: 2 Left colon; 2 (0 = Unprepared colon segment with mucosa not seen due to solid stool that cannot be cleared. 1 = Portion of mucosa of the colon segment seen, but other areas of the colon segment not well seen due to staining, residual stool and/or opaque liquid. 2 = Minor amount of residual staining, small fragments of stool and/or opaque liquid, but mucosa of colon segment seen well. 3 = Entire mucosa of colon segment seen well with no residual staining, small fragments of stool or opaque liquid) Impression and Post Procedure Diagnosis: diverticulosis colon polyp x1 internal hemorrhoids Plan: High fiber diet leaflet Avoid straining at stool, epsom salts and sitz bath, anusol supps or cream Repeat Colonoscopy in 5-6 years due to polyp or earlier if clinically indicated Above findings were reviewed with the patient and relevant handouts were provided if indicated.
[2024-12-15 11:45] VITALS: BP 109/59; PULSE 62; RESP 17; TEMP 36.7; O2SAT 95
[2024-12-15 11:50] VITALS: BP 116/68; PULSE 69; RESP 17; O2SAT 97
[2024-12-15 11:55] VITALS: BP 116/72; PULSE 60; RESP 17; O2SAT 97
[2024-12-15 12:00] VITALS: BP 106/73; PULSE 66; RESP 17; TEMP 36.4; O2SAT 98
== END 2024-12-15 12:50 | disposition home or self-care (01) ==
PROVIDERS: Nurse Practitioner; PCP Internal Medicine; Visit Provider Internal Medicine Gastroenterology
PROC: 0DJD8ZZ Inspection of Lower Intestinal Tract, Via Natural or Artificial Opening Endoscopic (ICD-10-PCS; CPT 45378; principal; 2024-12-15 12:20)
DX: Z12.12 Encounter for screening for malignant neoplasm of rectum (principal); D12.2 Benign neoplasm of ascending colon; K57.30 Diverticulosis of large intestine without perforation or abscess without bleeding; K64.0 First degree hemorrhoids; I10 Essential (primary) hypertension; I48.19 Other persistent atrial fibrillation; I50.812 Chronic right heart failure; I42.8 Other cardiomyopathies; Z87.74 Personal history of (corrected) congenital malformations of heart and circulatory system; E78.00 Pure hypercholesterolemia, unspecified; G47.33 Obstructive sleep apnea (adult) (pediatric); G89.29 Other chronic pain; M54.50 Low back pain, unspecified; M71.22 Synovial cyst of popliteal space [Baker], left knee; L40.9 Psoriasis, unspecified; Z79.01 Long term (current) use of anticoagulants; Z79.899 Other long term (current) drug therapy; Z79.891 Long term (current) use of opiate analgesic; Z98.1 Arthrodesis status; Z98.890 Other specified postprocedural states
CPT/HCPCS: 45385; 45381; 80307; 88305; J2003; J2704

== ENCOUNTER → 2024-12-15 09:32 | Outpatient (BNV) | payer OTHER, SELFPAY | PROVIDERS: PCP Internal Medicine; Visit Provider Internal Medicine Gastroenterology | DX: Z12.11 Encounter for screening for malignant neoplasm of colon (principal); D12.2 Benign neoplasm of ascending colon; K57.30 Diverticulosis of large intestine without perforation or abscess without bleeding; K64.0 First degree hemorrhoids | CPT/HCPCS: 45381; 45385 ==

== ENCOUNTER 2024-12-25 07:50 | Outpatient (REF) | payer OTHER, SELFPAY ==
--- NOTE | ~2024-12-25 | XR_ITS ---
CLINICAL HISTORY: SPINAL STENOSIS CERVICAL REGION, F U SPINE FUSION --- Additional Notes or Special I nstructions: A P, LATERAL,FLEXION,EXTENSION VIEWS W0 5 views cervical spine Comparison: CR/SR - XR CERVICAL SPINE 5V - 08/13/24 10:31 EST Findings: C3-C4 fusion hardware appears stable/intact. No acute fracture or acute malalignment. No change in alignment with flexion or extension. Advanced degenerative changes are seen throughout the cervical spine, with disc space narrowing, endplate sclerosis and marginal osteophyte formation. No prevertebral soft tissue swelling. IMPRESSION: No acute findings. Postsurgical and degenerative changes. This document has been electronically signed by: Boaz Pickett MD on 12/26/2024 07:57:00
--- OUTSIDE RECORDS SUMMARY | 2024-12-25 07:54 | XMS_ITS | Clinical Summary ---
Author Organization [facility] Address [address] [place] [address] Phone Care Team Providers Care Paint Roller Winder Name Role Phone Anthony Ruiz MD Primary Care Provider [phone] Allergies No known active allergies Medications guselkumab [...] no instability on the flexion-extension x-rays from [place] yesterday though there is a little gap [...] get [place] [facility]. All postop questions answered. I asked him to call with any concerns or questions prior to his next appointment. Encounters Date Type Department Care Team Description 12/08/2024 Telephone Neurosurgery [place] [address] [place] [address] Muriel Khan MA from Last 3 Months Immunizations Name Administration [...] COMM ENT: morbid Scoliosis DX:Scoliosis Atrial fibrillation ([facility] V24, [facility] V28) DX:Atrial fibrillation (HCC) ; COMMENT: unknown how long in found when had recent echo no tx Essential hypertension DX:Essent ial hypertension Adverse effect of anesthesia CHF (congestive heart failur e) ([facility] V24, [facility] V28) Arrhythmia A-fib ([facility] V24, [facility] V28) Irregular heart beat History of transfusion [...] this topic Medical Devices Implanted Type Area Soft Water Mechanic Device Identifier Shelf Expiration Date Model / Serial / Lot L-Asr Syed Canc [id number] Fd Fee - [id number] - [id number] Implanted:Qty : 1 on 06/18/2024 by Natalia Marinelli MD at [facility] [employer] Bone N/A: Spine Cervical [employer] 10/17/2036 [id number] / [id number] / [id number] Powder Surgifoam Absorb Gel - S1978 - [id number] Implanted:Qty : 1 on 06/18/2024 by Natalia Marinelli MD at [facility] [employer] N/A: Spine Cervical [employer] 01/13/20261977 / [id number] Spinal Hardware Spinal Hardware N/A: Spine Lumbar Screw Cerv Porf[address]io St 15x3.5mm - S0000 - [id number] Implanted:Qty : 4 on 06/18/2024 by Natalia Marinelli MD at [facility] Spinal Hardware N/A: Spine Cervical [employer] [id number] / 0000 / 0000 Plate Spin Cerv Ant Zevo 19mm - Sna - [id number] Implanted:Qty : 1 on 06/18/2024 by Natalia Marinelli MD at [facility] Spinal Hardware N/A: Spine Cervical [employer] [id number] / NA / NA Procedures Procedure Name Priority Date/Time Associated Diagnosis Comments COMPREHENSIVE METABOLIC PANEL STAT 06/28/2024 8:20 AM EST from Last 3 Months or Most Recently Relevant to Health Maintenance Results * (ABNORMAL) Comprehensive metabolic panel (06/28/2024 8:20 AM EST) Sodium 133 133 - 145 mmol/L LAB CHEMISTRY METHOD 06/28/2024 9:12 AM [facility] Potassium 3.7 3.5 - 5.5 mmol/L LAB CHEMISTRY METHOD 06/28/2024 9:12 AM [facility] Chloride 93(L) 96 - 110 mmol/L LAB CHEMISTRY METHOD 06/28/2024 9:12 AM [facility] CO2 31 21 - 32 mmol/L LAB CHEMISTRY METHOD 06/28/2024 9:12 AM [facility] Anion Gap 9 3 - 11 LAB CHEMISTRY METHOD 06/28/2024 9:12 AM [facility] Glucose 132(H) 70 - 100 mg/dL LAB CHEMISTRY METHOD 06/28/2024 9:12 AM [facility] BUN 23 5 - 25 mg/dL LAB CHEMISTRY METHOD 06/28/2024 9:12 AM [facility] Creatinine 1.28 0.70 - 1.30 mg/dL LAB CHEMISTRY METHOD 06/28/2024 9:12 AM [facility] eGFR 66 >=60 mL/min/1. 73m2 LAB CHEMISTRY METHOD 06/28/2024 9:12 AM [facility] Comment:Calculation based on the??Chronic Kidney Disease Epidemiology Collaboration (CKD-EPI) equation refit??without adjustment for race. BUN/Creatinine Ratio 18.0 LAB CHEMISTRY METHOD 06/28/2024 9:12 AM [facility] Calcium 9.2 8.5 - 10.5 mg/dL LAB CHEMISTRY METHOD 06/28/2024 9:12 AM [facility] AST (SGOT) 78(H) 10 - 42 unit/L LAB CHEMISTRY METHOD 06/28/2024 9:12 AM [facility] ALT (SGPT) 58 10 - 60 unit/L LAB CHEMISTRY METHOD 06/28/2024 9:12 AM [facility] Alkaline Phosphatase 64 42 - 121 unit/L LAB CHEMISTRY METHOD 06/28/2024 9:12 AM [facility] Total Protein 7.1 6.0 - 8.0 g/dL LAB CHEMISTRY METHOD 06/28/2024 9:12 AM [facility] Albumin 3.3 3.2 - 5.0 g/dL LAB CHEMISTRY METHOD 06/28/2024 9:12 AM [facility] Total Bilirubin 0.5 0.0 - 1.4 mg/dL LAB CHEMISTRY METHOD 06/28/2024 9:12 AM [facility] Blood Venous blood specimen / Unknown Venipuncture / Unknown 06/28/2024 8:20 AM EST 06/28/2024 8:23 AM EST Rober Kiel Stevens DO LAB BLOOD ORDERABLES Ioana l Result [facility] [address] [place] [address], from Last 3 Months or Most Recently Relevant to Health Maintenance Insurance [employer] Advance Directives * Full Code - Default [...] currently active code status orders. Care Teams Paint Roller Winder Relationship Specialty Start Date End Date Anthony Ruiz MD [address] [place] [address] Dr [address] [facility] ADOLFO Conti [address] PCP - General Internal Medicine 01/26/21
== END 2024-12-25 07:51 | disposition home or self-care (01) ==
LOC: HO.XRAY 07:50
PROVIDERS: PCP Internal Medicine; Visit Provider Physician Assistant
DX: M48.02 Spinal stenosis, cervical region (principal); F11.20 Opioid dependence, uncomplicated
CPT/HCPCS: 72050; 96372; Q9991

== ENCOUNTER → 2024-12-25 07:58 | Outpatient (BNV) | payer OTHER, SELFPAY | PROVIDERS: PCP Internal Medicine; Visit Provider Radiology Vascular & Interventional Radiology | DX: M43.20 Fusion of spine, site unspecified (principal) | CPT/HCPCS: 72050 ==

== ENCOUNTER 2024-12-25 09:23 | Outpatient (AMB) | payer OTHER, SELFPAY ==
--- NOTE | 2024-12-25 09:23 | A.OFFVIS_ITS ---
Vital Signs 12/25/24 09:34 Height 5 ft 9 in Weight 197 lb BMI 29.1 Respiration 74 H Pulse Oximetry (%) 99 Oxygen Delivery Method Room Air Intake Visit Reasons: MAT Injection Allergies No Known Allergies Allergy (Verified 12/25/24 09:37) HPI HPI MAT Injection: Details: He is doing well with 100 mg Sublocade. He last received it November 19 here LLQ,transtubercular plane 3. He has no complaints and no cravings. He has disk disease and neurologic complaints and surgeries including C spine. He has no complaints of constipation He has no Hepatitis C or HIV concerns and was negative last year j03/20/2024nd negative T spot. He doesnt need any counseling services today and has no SI or HI. He works for [employer]. [facility] Medical History Cervical spondylosis Synovial cyst of popliteal space [Lyle], left knee COVID-19 virus infection Biceps tendon rupture Atrial septal defect Obstructive sleep apnea Chronic low back pain Obesity (BMI 30-39.9) Atrial fibrillation Psoriasis Hypercholesterolemia Left wrist tendinitis Surgical History Hx of fusion of cervical spine H/O umbilical hernia repair H/O arthroscopic knee surgery History of repair of atrial septal defect H/O spinal fusion Family History Father No problems noted. Mother No problems noted. 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 Cognitive needs: No Hearing needs: No Vision needs: No Review of Systems Const All systems reviewed & are unremarkable except as noted in HPI and below Physical Exam Vital Signs: Last Vital Signs Resp 74 H 12/25/24 09:34 Pulse Ox 99 12/25/24 09:34 Oxygen Delivery Method Room Air 12/25/24 09:34 BMI result Body Mass Index 29.1 Const General: cooperative Office Meds Sublocade 100 mg/0.5 mL solution,extended release subcutaneous syringe Performing Provider: Dana Jo MD Performing Location: [facility] Administered by: Dana Jo MD on 12/25/24 10:04 Dose Route Admin Location Dispensed Lot Number Expiration Date [facility] Director Style 100 mg subcut RLQ 0.5 mL [id number] 09/12/25 [address]-6 [employer]. Assessment & Plan Assessment & Plan (1) Opioid dependence: Comment: He is stable and doing well. He says he has no signs of withdrawal toward end of Sublocade dose. Code(s): F11.20 - Opioid dependence, uncomplicated Category: Medical Qualifiers: Substance use status: uncomplicated Qualified Code(s): F11.20 - Opioid dependence, uncomplicated Plan: See in one month,continue Sublocade 100 mg. Plan na Orders: Orders AMB Buprenorphine Injection Today F11.20 - Opioid dependence, uncomplicated Medications: New Sublocade ER (buprenorphine) 100 mg (0.5 mL) subcut ONCE 0.5 mL 0RF NS F11.20 - Opioid dependence, uncomplicated Coding Level of Care Code Est Pt Level 3 (16933) Diagnoses Uncomplicated opioid dependence F11.20 Substance use status: uncomplicated
--- OUTSIDE RECORDS SUMMARY | 2024-12-25 09:32 | XMS_ITS | Clinical Summary ---
Author Organization [facility] Address [address] [place] [address] Phone Care Team Providers Care Granite Cutter Name Role Phone Anthony Ruiz MD Primary Care Provider [phone] Allergies No known active allergies Medications guselkumab [...] no instability on the flexion-extension x-rays from [place] yesterday though there is a little gap [...] is requesting to get them done at [facility], order faxed [place]. All postop questions answered. I asked him to call with any concerns or questions prior to his next appointment. Encounters Date Type Department Care Team Description 12/08/2024 Telephone Neurosurgery [place] [address] [place] [address] Muriel Khan MA from Last [...] COMM ENT: morbid Scoliosis DX:Scoliosis Atrial fibrillation ([facility] V24, [facility] V28) DX:Atrial fibrillation (HCC) ; COMMENT: unknown how long in found when had recent echo no tx Essential hypertension DX:Essent ial hypertension Adverse effect of anesthesia CHF (congestive heart failur e) ([facility] V24, [facility] V28) Arrhythmia A-fib ([facility] V24, [facility] V28) Irregular heart beat History of transfusion [...] this topic Medical Devices Implanted Type Area Insurance Service Representative Device Identifier Shelf Expiration Date Model / Serial / Lot L-Asr Syed Canc [id number] Fd Fee - [id number] - [id number] Implanted:Qty : 1 on 06/18/2024 by Natalia Marinelli MD at [facility] [employer] Bone N/A: Spine Cervical [employer] 10/17/2036 [id number] / [id number] / [id number] Powder Surgifoam Absorb Gel - S1978 - [id number] Implanted:Qty : 1 on 06/18/2024 by Natalia Marinelli MD at [facility] [employer] N/A: Spine Cervical [employer] 01/13/20261977 / [id number] Spinal Hardware Spinal Hardware N/A: Spine Lumbar Screw Cerv Porfirio St 15x3.5mm - S0000 - [id number] Implanted:Qty : 4 on 06/18/2024 by Natalia Marinelli MD at [facility] Spinal Hardware N/A: Spine Cervical [employer] [id number] / 0000 / 0000 Plate Spin Cerv Ant Zevo 19mm - Sna - [id number] Implanted:Qty : 1 on 06/18/2024 by Natalia Marinelli MD at [facility] Spinal Hardware N/A: Spine Cervical [employer] [id number] / NA / NA Procedures Procedure Name Priority Date/Time Associated Diagnosis Comments COMPREHENSIVE METABOLIC PANEL STAT 06/28/2024 8:20 AM EST from Last 3 Months or Most Recently Relevant to Health Maintenance Results * (ABNORMAL) Comprehensive metabolic panel (06/28/2024 8:20 AM EST) Sodium 133 133 - 145 mmol/L LAB CHEMISTRY METHOD 06/28/2024 9:12 AM [facility] Potassium 3.7 3.5 - 5.5 mmol/L LAB CHEMISTRY METHOD 06/28/2024 9:12 AM [facility] Chloride 93(L) 96 - 110 mmol/L LAB CHEMISTRY METHOD 06/28/2024 9:12 AM [facility] CO2 31 21 - 32 mmol/L LAB CHEMISTRY METHOD 06/28/2024 9:12 AM [facility] Anion Gap 9 3 - 11 LAB CHEMISTRY METHOD 06/28/2024 9:12 AM [facility] Glucose 132(H) 70 - 100 mg/dL LAB CHEMISTRY METHOD 06/28/2024 9:12 AM [facility] BUN 23 5 - 25 mg/dL LAB CHEMISTRY METHOD 06/28/2024 9:12 AM [facility] Creatinine 1.28 0.70 - 1.30 mg/dL LAB CHEMISTRY METHOD 06/28/2024 9:12 AM [facility] eGFR 66 >=60 mL/min/1. 73m2 LAB CHEMISTRY METHOD 06/28/2024 9:12 AM [facility] Comment:Calculation based on the??Chronic Kidney Disease Epidemiology Collaboration (CKD-EPI) equation refit??without adjustment for race. BUN/Creatinine Ratio 18.0 LAB CHEMISTRY METHOD 06/28/2024 9:12 AM [facility] Calcium 9.2 8.5 - 10.5 mg/dL LAB CHEMISTRY METHOD 06/28/2024 9:12 AM [facility] AST (SGOT) 78(H) 10 - 42 unit/L LAB CHEMISTRY METHOD 06/28/2024 9:12 AM [facility] ALT (SGPT) 58 10 - 60 unit/L LAB CHEMISTRY METHOD 06/28/2024 9:12 AM [facility] Alkaline Phosphatase 64 42 - 121 unit/L LAB CHEMISTRY METHOD 06/28/2024 9:12 AM [facility] Total Protein 7.1 6.0 - 8.0 g/dL LAB CHEMISTRY METHOD 06/28/2024 9:12 AM [facility] Albumin 3.3 3.2 - 5.0 g/dL LAB CHEMISTRY METHOD 06/28/2024 9:12 AM [facility] Total Bilirubin 0.5 0.0 - 1.4 mg/dL LAB CHEMISTRY METHOD 06/28/2024 9:12 AM [facility] Blood Venous blood specimen / Unknown Venipuncture / Unknown 06/28/2024 8:20 AM EST 06/28/2024 8:23 AM EST Rober Kile Stevens DO LAB BLOOD ORDERABLES Ioana l Result [facility] [address] [place] [address], from Last 3 Months or Most Recently Relevant to Health Maintenance Insurance [facility] Advance Directives * Full Code - Default [...] currently active code status orders. Care Teams Granite Cutter Relationship Specialty Start Date End Date Anthony Ruiz MD [address] [place] [address] Dr [address] [facility] [place] Conti [address] PCP - General Internal Medicine 01/26/21
[2024-12-25 09:34] VITALS: RESP 74; O2SAT 99; BMI 29.1
== END 2024-12-25 09:55 | disposition home or self-care (01) ==
LOC: HO.HCC 09:23
PROVIDERS: PCP Internal Medicine; Visit Provider Internal Medicine
DX: F11.20 Opioid dependence, uncomplicated (principal)
CPT/HCPCS: 99213

== ENCOUNTER 2025-01-22 10:56 | Outpatient (AMB) | payer OTHER, SELFPAY ==
[2025-01-22 11:09] VITALS: PULSE 66; O2SAT 98
--- NOTE | 2025-01-22 11:09 | MHC.OFFVIS ---
Vital Signs 01/22/25 11:09 Height 5 ft 9 in Pulse 66 Pulse Source Pulse Oximeter Pulse Oximetry (%) 98 Oxygen Delivery Method Room Air Intake Visit Reasons: MAT Injection Allergies No Known Allergies Allergy (Verified 01/22/25 11:13) [facility] Medical History Cervical spondylosis Synovial cyst of popliteal space [Lyle], left knee COVID-19 virus infection Biceps tendon rupture Atrial septal defect Obstructive sleep apnea Chronic low back pain Obesity (BMI 30-39.9) Atrial fibrillation Psoriasis Hypercholesterolemia Left wrist tendinitis Surgical History Hx of fusion of cervical spine H/O umbilical hernia repair H/O arthroscopic knee surgery History of repair of atrial septal defect H/O spinal fusion Family History Father No problems noted. Mother No problems noted. 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 Cognitive needs: No Hearing needs: No Vision needs: No Physical Exam Vital Signs: Last Vital Signs Pulse 66 01/22/25 11:09 Pulse Ox 98 01/22/25 11:09 Oxygen Delivery Method Room Air 01/22/25 11:09 Office Meds Sublocade 100 mg/0.5 mL solution,extended release subcutaneous syringe Performing Provider: Dana Jo MD Performing Location: [facility] [place] [facility] Administered by: Dana Jo MD on 01/22/25 11:36 Dose Route Admin Location Dispensed Lot Number Expiration Date [facility] Coloring Checker 100 mg subcut LLQ 0.5 mL [id number] 10/10/25 [address]-1 [employer]. Assessment & Plan Assessment & Plan (1) Opioid dependence: Comment: He is stable and doing well. He says he has no signs of withdrawal toward end of Sublocade dose. Code(s): F11.20 - Opioid dependence, uncomplicated Category: Medical Qualifiers: Substance use status: uncomplicated Qualified Code(s): F11.20 - Opioid dependence, uncomplicated Orders: Orders AMB Buprenorphine Injection - Patient Supplied Today F11.20 - Opioid dependence, uncomplicated Coding Diagnoses Uncomplicated opioid dependence F11.20 Substance use status: uncomplicated
--- OUTSIDE RECORDS SUMMARY | 2025-01-22 11:59 | XMS_ITS | Encounter Summary ---
Author Organization [facility] Address [address] [place] [address] Care Team Providers Care Steaming Machine Operator Name Role Phone Anthony Ruiz MD Primary Care Provider [phone] Reason for Visit * Reason Onset Date Comments Pre-operative Clearance 01/20/2025 Cardiac clearance Encounter Details Date Type Department Care Team ([facility] st Contact Info) Description 01/20/2025 Telephone Neurosurgery [facility] 175 [facility] [address] [place] [phone] Natalia Marinelli MD [address] [place] [address] Pre-operative Clearance (Cardiac clearance) Social History Tobacco Use Types Packs/Day Years Used Date Smoking Tobacco: Never Passive Smoke Exposure: Never Smokeless Tobacco: Never Alcohol Use Standard Drinks/Week Comments Never 0 [...] Orientation Straight 06/17/2024 9: 01 AM EST documented as of this encounter Progress Notes * Talita Montalvo - 01/20/2025 3:09 PM EDT Patient called to check if we've received cardiac clearance for his surgery on Sat, 6/16. He did put a call in with them as well. documented in this encounter Plan of Treatment Upcoming Encounters Date Type Department Care Team (Latest Contact Info) Description 01/25/2025 9:30 AM EDT Hospital Encounter [facility] Main [address] [place] [phone] Natalia Marinelli MD [address] [place] [address] 01/25/2025 9:30 AM EDT - 01/25/2025 11:30 AM EDT Surgery [facility] Main OR [address] [place] [phone] Natalia Marinelli MD [address] [place] [address] C4-5 ACDFP [19537 (CPT??) +2 more] 02/19/2025 8:00 AM EDT Consult General Surgery - [place] [address] [phone] Manav Gibbs MD [address] [address] Scheduled Procedures Name Priority Associated Diagnoses Date/Ti me FUSION CERVICAL ANTERIOR LEVEL 1 Spinal stenosis, cervical region 01/25/2025 9:30 AM EDT documented as of this encounter Visit Diagnoses Not on filedocumented in this encounter Care Teams Steaming Machine Operator Relationship Specialty Start Date End Date Anthony Ruiz MD [address] [place] [address] Dr [address] [facility] [place] [address] PCP - General Internal Medicine 01/26/21 documented as of this encounter
== END 2025-01-22 11:34 | disposition home or self-care (01) ==
LOC: HO.HCC 10:56
PROVIDERS: PCP Internal Medicine; Visit Provider Internal Medicine
DX: F11.20 Opioid dependence, uncomplicated (principal)

== ENCOUNTER → 2025-01-22 10:56 | Outpatient (BNVA) | payer OTHER, SELFPAY | PROVIDERS: PCP Internal Medicine; Visit Provider Internal Medicine | DX: F11.20 Opioid dependence, uncomplicated (principal) | CPT/HCPCS: 96372; Q9992 ==

== ENCOUNTER 2025-02-17 09:50 | Outpatient (REF) | payer OTHER, SELFPAY ==
--- NOTE | ~2025-02-17 | XR_ITS ---
CLINICAL HISTORY: SPINAL STENOIS CERVICAL REGION NECK PAIN --- Additional Notes or Special Instructions: WO 5 views cervical spine Comparison: CR/SR - XR CERVICAL SPINE 5V - 12/25/24 08:18 EDT CR/SR - XR CERVICAL SPINE 5V - 08/13/24 10:31 EST Findings: Postoperative changes of anterior cervical discectomy and fusion at C3-4 and C4-5. The C4-5 postoperative change appears new compared to the patient's prior exam in December of this year. There is mild prevertebral soft tissue swelling. Facets are aligned. No evidence of acute hardware failure. No instability on flexion-extension. IMPRESSION: Postoperative changes of anterior cervical discectomy and fusion at C4-5. Prior fusion at C3-4 appears unchanged. No instability on flexion-extension. This document has been electronically signed by: Marisol Walters MD on 02/18/2025 09:20:35
== END 2025-02-17 09:51 | disposition home or self-care (01) ==
LOC: HO.XRAY 09:50
PROVIDERS: Absent Provider Physician Assistant; PCP Internal Medicine
DX: F11.20 Opioid dependence, uncomplicated (principal); M54.2 Cervicalgia; M48.02 Spinal stenosis, cervical region; Z98.1 Arthrodesis status
CPT/HCPCS: 72050; 96372; Q9991

== ENCOUNTER 2025-02-17 09:50 | Outpatient (AMB) | payer OTHER, SELFPAY ==
--- NOTE | 2025-02-17 10:12 | AM.OFFVISNUR ---
Vital Signs 02/17/25 10:30 Height 5 ft 9 in Weight 86.636 kg BMI 28.2 BP 129/97 H Blood Pressure Location Lt brachial Pulse 62 Pulse Source Pulse Oximeter Pulse Oximetry (%) 98 Oxygen Delivery Method Room Air Intake Visit Reasons: Injection Allergies No Known Allergies Allergy (Verified 01/22/25 11:13) Nursing Note Channing is here for his monthly Sublocade injection. Channing is alert and oriented x 3 and presents with appropriate affect and is calm and cooperative with care. Channing denies any negative symptoms associated with the injection and feels that they are beneficial. He reported that he had a upper spinal fusion back in January and may have returned to the gym a little too soon and is having some residual pain in his back and is having it evaluated soon by MRI.Appointmet for next injection made in 4 weeks. . Office Meds Sublocade 100 mg/0.5 mL solution,extended release subcutaneous syringe Performing Provider: Dana Jo MD Performing Location: [facility] Administered by: Ana Decker RN on 02/17/25 10:24 Dose Route Admin Location Dispensed Lot Number Expiration Date [facility] [employer] Operator 100 mg subcut LUQ 0.5 mL [id number] 11/09/25 [address]-7 [employer]. Total Dispensed Waste 0.5 mL 0 % Comments: Pt here for 4 week Sublocade injection. No issues reported with previous injection and tolerated injection well. Educated on signs and symptoms of infection and encouraged to call [facility] with any related questions or concerns, pt verbalized understanding. Follow-up scheduled in 4 weeks for next injection. Assessment & Plan Assessment & Plan Orders: Orders AMB Buprenorphine Injection Today F11.20 - Opioid dependence, uncomplicated Coding
--- OUTSIDE RECORDS SUMMARY | 2025-02-17 10:26 | XMS_ITS | Encounter Summary ---
Author Organization [facility] [place] [address] Care Team Providers Care Insole Rounder Name Role Phone Anthony Ruiz MD Primary Care Provider [phone] Encounter Details Date Type Department Care Team (Late st Contact Info) Description 02/16/[address] [place] [address] [facility] [place] Social History Tobacco Use Types Packs/Day Years Used Date Smoking Tobacco: Never Passive Smoke Exposure: Never Smokeless Tobacco: Never Alcohol Use Standard Drinks/Week Comments Never 0 (1 standard drink = 0.6 oz pur e alcohol) Interpersonal Safety Answer Date Record ed Physical Abuse 01/25/2025 Verbal Abuse 01/25/2025 Sex and Gender Information Value Date Recorded Sex Assigned at Male 06/17/2024 9:01 AM EST Legal Sex Male 8:21 PM EST Gender Identity Male 06/17/2024 9:01 AM EST Sexual Orientation Straight 06/17/2024 9: 01 AM EST documented as of this encounter Progress Notes * REAGAN Owusu - 02/17/2025 10:24 AM EDT Tried calling patient again, no answer, left voice message. * REAGAN Owusu - 02/16/2025 4:55 PM EDT Pt is approx 3 weeks s/p C4-5 ACDF. I called both numbers, no answer, left VM. I was not able to find out if he had recent inciting event or injury, I did send over the x-ray order since I am not able to reach them prior to his appointment tomorrow at [facility]. * Muriel Khan MA - 02/16/2025 10:44 AM EDT Patient left message stating he is having some increased right sided neck pain, he is concerned something is wrong. He is asking if we would consider ordering an xray and sending order to [facility] as he has appt there tomorrow. Please call documented in this encounter Plan of Treatment Upcoming Encounters Date Type Department Care Team (Late st Contact Info) Description 02/19/2025 8:00 AM EDT Consult General Surgery - [place] 175 [facility] [address] [place] [phone] Manav Gibbs MD 175 [facility] [address] [place] [address] 03/19/2025 2:45 PM EDT Office Visit Neurosurgery [place] [address] [place] [phone] Natalia Marinelli MD 175 [place] [address] Scheduled Orders Name Type Priority Associated Diagnoses Orde r Schedule XR Cervical Spine 4-5 Views Imaging Routine Spinal stenosis, cervical region Expected: 02/16/2025, Expires: 02/16/2026 documented as of this encounter Visit Diagnoses Diagnosis Spinal stenosis, cervical region- Primary documented in this encounter Care Teams Insole Rounder Relationship Specialty Start Date End Date Anthony Ruiz MD [address] [place] [address] [address] [facility] [place] [address] PCP - General Internal Medicine 01/26/21 documented as of this encounter
[2025-02-17 10:30] VITALS: BP 129/97; PULSE 62; O2SAT 98; BMI 28.2
== END 2025-02-17 10:20 | disposition home or self-care (01) ==
LOC: HO.HCC 09:51
PROVIDERS: PCP Internal Medicine
DX: F11.20 Opioid dependence, uncomplicated (principal)

== ENCOUNTER → 2025-02-17 10:36 | Outpatient (BNV) | payer OTHER, SELFPAY | PROVIDERS: Absent Provider Physician Assistant; PCP Internal Medicine; Visit Provider Radiology Diagnostic Radiology | DX: M48.02 Spinal stenosis, cervical region (principal); M54.2 Cervicalgia | CPT/HCPCS: 72050 ==

== ENCOUNTER 2025-03-17 09:03 | Outpatient (AMB) | payer OTHER, SELFPAY ==
--- NOTE | 2025-03-17 09:19 | AM.OFFVISNUR ---
Vital Signs 03/17/25 09:20 Height 5 ft 9 in Weight 88.451 kg BMI 28.8 BP 110/60 Pulse 55 Pulse Source Pulse Oximeter Pulse Oximetry (%) 98 Intake Visit Reasons: Injection Buy and bill Allergies No Known Allergies Allergy (Verified 03/17/25 09:21) Nursing Note Ed is present today gfor his 4 week Sublocade injection. Ed is alert, oriented, cooperative with care and presents with appropriate affect. Ed reports no negative symptoms between, and denies any issue with the injections. He just got back from a family vacation in [place] and is having a hernia repair tomorrow at [facility]. Follow up scheduled in 4 weeks for next injection. Office Meds Sublocade 100 mg/0.5 mL solution,extended release subcutaneous syringe Performing Provider: Dana Jo MD Performing Location: [facility] Administered by: Ana Decker RN on 03/17/25 09:47 Dose Route Admin Location Dispensed Lot Number Expiration Date [facility] Manager Provider Relations 100 mg subcut RUQ 0.5 mL [id number] 11/09/25 [address]-3 [employer] Total Dispensed Waste 0.5 mL 0 % Comments: Pt is here for 100 mg Sublocade injection, denies complications with previous injections and tolerated injection well. Pt educated on signs and symptoms of infection at the injection site, urged to call [facility] with any questions or concerns. Follow up appointment made in 4 weeks for next injection. Assessment & Plan Assessment & Plan Orders: Orders AMB Buprenorphine Injection Today F11.20 - Opioid dependence, uncomplicated Coding
--- OUTSIDE RECORDS SUMMARY | 2025-03-17 09:19 | XMS_ITS | Clinical Summary ---
Author Organization [facility] Address [address] [place] [address] Phone Care Team Providers Care Patient Resource Specialist Name Role Phone Anthony Ruiz MD Primary Care Provider [phone] Allergies No known active allergies Medications guselkumab [...] the skin every 28 (twenty-eight) days. Active Laxative, bisacodyl, 5 mg EC tablet THE DAY BEFORE COLONOSCOPY TAKE 2 PILLS AT 12PM AND 2 PILLS AT 5PM WITH PLENTY OF WATER 12/10/19 25 Active oxyCODONE (OXY-IR) 5 mg immediate release capsuleIndicati ons:Cervical spondylitic cord compression Take 1-2 capsules (5-10 mg total) by mouth every 6 (six) hours if needed for severe pain. Max Daily Amount: 40 mg 40 capsule 01/26/20 25 Active Additional Information Patient not taking.Reported on 02/19/2025 apixaban (ELIQUIS) 5 mg tablet Take 1 tablet (5 mg total) by mouth 2 (two) times a day. Active sacubitriL-vals aron (Entresto) 24-26 mg per tablet Take 1 tablet by mouth 1 (one) time each day. 025 Discontinued Active Problems Problem Noted Date Diagnosed Date Inguinal hernia of right pavel e without obstruction or gangrene 02/19/2025 Low back pain 06/30/2024 Hypertension 06/30/2024 Shoulder [...] his muscle antibody testing. Assessment & Plan (02/04/2025 1:34 PM EDT): Patient is doing well POD #10 s/p C4-5 ACDF. No current concerns or issues. Not requiring any pain medication. He has been back to work. He will follow-up with Dr. Marinelli in 6 weeks with C-spine x-rays. All questions answered. Assessment & Plan (01/08/2025 4:38 PM EDT): I reviewed the x-rays with Mr. Bauman. He is not quite fused yet at C3-4 but that appears stable. My concern is I believe there is increased angulation especially in flexion at C4-5 and he is describing recurrent pain and feeling that his head is going to drop forward. This level is vulnerable as he appears to be auto-fusing from C5-C7 and had the recent surgical fusion at C3-4. He is certainly holding his head more upright since surgery but fears that he is going to drop back into the old position of his current symptoms continue. I agree and offered a C4-5 ACDF with plating. We reviewed the details, risks, benefits and anticipated postoperative course. I recommended he remain out of work a little longer than 8 days he waited after the last surgery and also recommended that he avoid heavy overhead lifting at the gym. We discussed alternate exercises for his upper arm work. All questions were answered and he and his wish to proceed. I will recommend that he is discharged home with an incentive spirometer as he developed a pneumonia postop. Assessment & Plan (08/14/2024 2:35 PM EST): [...] no instability on the flexion-extension x-rays from [facility] yesterday though there is a little gap [...] Encounters Date Type Department Care Team Description 03/05/2025 Telephone General Surgery [address] [phone] Manav Gibbs MD Prior Authorization (03/18/25 Dr. Manav Gibbs) 03/04/2025 Telephone General Surgery [address] [phone] Manav Gibbs MD surgery 02/19/2025 8:00 AM EDT Consult General Surgery [address] [phone] Manav Gibbs MD Inguinal hernia of right side without obstruction or gangrene (Primary Dx) 02/16/2025 Telephone Neurosurgery [address] [phone] [facility] [place] [place] 02/04/2025 1:00 PM EDT Office Visit Neurosurgery [address] [phone] Lory Devine PA Cervical spondylitic cord compression (Primary Dx) 01/25/2025 10:25 AM EDT Anesthesia Event [facility] [place] [address] [place] [phone] Vladimir Dawson DO Lema Alava, Steven, SRNA 01/25/2025 9:30 AM EDT - 01/25/2025 11:[address] [facility] [place] [address] [place] [phone] Natalia Marinelli MD C4-5 ANTERIOR CERICAL DISCECTOMY, FUSION AND PLATING [68394 (CPT ) +2 more] 01/25/2025 7:57 AM EDT - 01/25/2025 3:30 PM EDT Hospital Encounter [facility] [place] [address] [place] [phone] Natalia Marinelli MD Cervical spondylitic cord compression (Primary Dx) Discharge Disposition: Home or Self Care 01/25/2025 7:25 AM EDT - 01/25/2025 11:59 PM EDT Hospital Encounter [facility] Xray [address] [place] [phone] Pain Discharge Disposition: Home or Self Care 01/25/2025 Telephone Neurosurgery [facility] [address] [phone] Natalia Marinelli MD Medication (Surgery today, 01/25/25) 01/20/[address] [phone] Natalia Marinelli MD Pre-operative Clearance (Cardiac clearance) 01/08/2025 1:30 PM EDT Office Visit Neurosurgery [address] [phone] Natalia Marinelli MD Cervical spondylitic cord compression (Primary Dx) 01/01/[address] [phone] Gentry Lizama PA from Last 3 Months Immunizations Name Administration [...] History Surgery Date Site/Laterality Comments CARDIAC SURGERY HEART SURGERY: port access asd repair HERNIA REPAIR HERNIA REPAIR/UMB BACK SURGERY lumbar fusion FOOT SURGERY Bilateral ANTERIOR CERVICAL DISCECTOMY W/ FUSION 06/18/2024 N/A C3-4 ACDF, Yves Dinh SPINE SURGERY COLONOSCOPY REPLACEMENT DISC ANTERIOR LUMBAR SPINE LUMBAR DISCECTOMY Medical History Medical History Date Comments Heart disease 2008 asd repair Hypercholesterolemia Obesity 2020 morbid Scoliosis Atrial [place] [place] [facility] [place] unknown how long in found when had recent echo no tx Essential hypertension Adverse effect of anesthesia CHF (congestive heart failur e) [place] [place] [facility] [place] Arrhythmia A-fib [place] [place] [facility] [place] Irregular heart beat History of transfusion [...] Sign Reading Time Taken Comments Blood Pressure 125/67 02/19/2025 7:59 AM EDT Pulse 59 02/19/2025 7:59 AM EDT Temperature 36.3 C (97.3 F) 02/19/2025 7:59 AM EDT Respiratory Rate 16 01/25/2025 1:54 PM EDT Oxygen Saturation 96% 01/25/2025 1:54 PM EDT Inhaled Oxygen Concentration - - Weight 84.4 kg (186 lb) 02/19/2025 7:59 AM EDT Height 172.7 cm (5' 8 ) 02/19/2025 7:59 AM EDT Body Mass Index 28.28 02/19/2025 7:59 AM EDT Plan of Treatment Upcoming Encounters Date Type Department Care Team (Latest Contact Info) Description 03/18/2025 9:30 AM EDT Hospital Encounter [facility] OR [address] [place] [phone] Manav Gibbs MD [address] [phone] 03/18/2025 9:30 AM EDT - 03/18/2025 11:[address] [facility] OR [address] [place] [phone] Manav Gibbs MD [address] [phone] DAVINCI RIGHT INGUINAL HERNIA REPAIR W/MESH ? OPEN [28001 (CPT )] 03/31/2025 9:30 AM EDT Office Visit General Surgery [facility] [address] [phone] Francesco Duncan, [address] [address] Scheduled Procedures Name Priority Associated Diagnoses Date/Ti me REPAIR HERNIA INGUINAL BILATERAL ROBOT Inguinal hernia of right side without obstruction or gangrene 03/18/2025 9:30 AM EDT Health Maintenance Due Date Last Done Comments Hepatitis B Vaccines (1 of 3 - 19+ 3-dose series) 1986 Pneumococcal Vaccine: 50+ Years (1 of 1 - PCV) 2017 Zoster Vaccines (1 of 2) 2017 COVID-19 Vaccine ( season) 2024 05/16/2023, 05/28/2022, 12/04/2021, Additional history exists Cholesterol Screening (Lipid Panel) 06/11/2024 Colorectal Cancer Screening: Colonoscopy 06/11/2024 HIV Screening 06/11/2024 Hepatitis C Screening 06/11/2024 Social Influencers of Health Screening 06/11/2024 Depression Screening 08/12/2024 Influenza Vaccine (#1) 2025 , 05/28/2022, 07/30/2018, Additional history exists Hypertension/CHF/CAD Annual [...] this topic Medical Devices Implanted Type Area Merchant Police Device Identifier Shelf Expiration Date Model / Serial / Lot L-Asr Syed Canc [id number] [id number] Fee - [id number] - [id number] Implanted:Qty : 1 on 06/18/2024 by Natalia Marinelli MD at [facility] [employer] Bone N/A: Spine Cervical [employer] 10/17/2036 [id number] / [id number] / [id number] Powder Surgifoam Absorb Gel - S1978 - [id number] Implanted:Qty : 1 on 06/18/2024 by Natalia Marinelli MD at [facility] [employer] N/A: Spine Cervical [employer] 01/13/20261977 / [id number] Powder Surgifoam Absorb Gel - Sna - [id number] Implanted:Qty : 1 on 01/25/2025 by Natalia Marinelli MD at [facility] [employer] N/A: Spine Cervical [employer] [id number] 10/08/20261977 / [id number] Spinal Hardware Spinal Hardware N/A: Spine Lumbar Screw Cerv [address] 15x3.5mm - S0000 - [id number] Implanted:Qty : 4 on 06/18/2024 by Natalia Marinelli MD at [facility] Spinal Hardware N/A: Spine Cervical [employer] SOFAMOR DANEK [id number] / 0000 / 0000 Plate Spin Cerv Ant Zevo 19mm - Sna - [id number] Implanted:Qty : 1 on 06/18/2024 by Natalia Marinelli MD at [facility] Spinal Hardware N/A: Spine Cervical [employer] SOFAMOR DANEK [id number] / NA / NA Plate Spin Cerv Ant Zevo 19mm - Sna - [id number] Implanted:Qty : 1 on 01/25/2025 by Natalia Marinelli MD at [facility] Spinal Hardware N/A: Spine Cervical [employer] SO[employer]OR [employer]ANE[employer] [id number] / NA / NA Screw Cerv [address] 15x3.5mm - Sna - [id number] Implanted:Qty : 4 on 01/25/2025 by Natalia Marinelli MD at [facility] Spinal Hardware N/A: Spine Cervical [employer] SO[employer]ANE[employer] [id number] / NA / NA [id number] Lordotic Asr Cortical Cancellous Block Implanted:Qty : 1 on 01/25/2025 by Natalia Marinelli MD at [facility] N/A: Spine Cervical [employer] NE[employer]OS[employer] [id number] 06/16/2027 [id number] / [id number] / [id number] Procedures Procedure Name Priority Date/Time Associated Diagnosis Comments OXYGEN THERAPY, ADULT Routine 01/25/2025 1:02 PM EDT XR SPINE 1 VIEW Routine 01/25/2025 12:25 PM EDT Pain TH AN ENDOTRACHEAL(NO CHARGE) Routine 01/25/2025 10:56 AM EDT MD ALLOGRAFT STRUCTURAL SPINE SURGERY ONLY 01/25/2025 10:25 AM EDT Spinal stenosis, cervical region Case Notes C-Arm, medtronic zevo [employer] Special Needs 01/22 move case up to 9:30 per Raymundo via phone 01/22 JT MD INSTRUMENTATION ANTERIOR 2-3 VERTEBRAL SEGMENTS 01/25/2025 10:25 AM EDT Spinal stenosis, cervical region Case Notes C-Arm, medtronic zevo [employer] las[employer] Special Needs 01/22 move case up to 9:30 per Raymundo via phone 01/22 JT MD ARTHRDS ANT I-B DISCECTOMY DECMPR SPINAL CORD/NERVE ROOTS CERV BELOW C2 01/25/2025 10:25 AM EDT Spinal stenosis, cervical region Case Notes C-Arm, medtronic zevo [employer] Special Needs 01/22 move case up to 9:30 per Raymundo via phone 01/22 JT PROCEDURAL ECG Routine 01/25/2025 8:14 AM EDT COMPREHENSIVE METABOLIC PANEL STAT 06/28/2024 8:20 AM EST from Last 3 Months or Most Recently Relevant to Health Maintenance Results * XR Spine 1 View (01/25/2025 12:25 PM EDT) Anatomical Region Laterality Modality Spine Radio Fluoroscop y 01/26/2025 12:0 8 PM EDT Impressions 01/26/2025 12:10 PM EDT Satisfactory appearance following anterior fusion and placement of a disc spacer at the C4-5 level. Code 47821 The dose-area product for this procedure was 21.55 uGy*m2. PQRI CPT II G9500 -------- FINAL REPORT -------- Dictated By: Hung Glass Dictated Date: 01/26/2025 12:08 ET Assigned Physician: Hung Glass Reviewed and Electronically Signed By: Hung Glass Signed Date: 01/26/2025 12:10 ET Workstation ID: [id number] Transcribed By: Self Edit Transcribed Date: 01/26/2025 12:08 ET Narrative 01/26/2025 12:10 PM EDT HISTORY: The patient is a 59-year-old male undergoing cervical spine surgery. FINDINGS: 3 fluoroscopic spot lateral radiographs of the cervical spine obtained in the operating room are submitted. The study demonstrates that the patient has undergone previous anterior fusion at the C3-4 level. The first image demonstrates a metallic probe projecting anterior to the C4-5 level. Subsequent images document performance of anterior fusion and placement of a disc spacer at the C4-5 level. The surgical hardware appears well-positioned and intact on lateral projection. Alignment is anatomic. Procedure Note Hung Glass MD - 01/26/2025 HISTORY: The patient is a 59-year-old male undergoing cervical spinesurgery. FINDINGS: 3 fluoroscopic spot lateral radiographs of the cervical spineobtained in the operating room are submitted. The study demonstrates thatthe patient has undergone previous anterior fusion at the C3-4 level. Thefirst image demonstrates a metallic probe projecting anterior to the C4-5level. Subsequent images document performance of anterior fusion andplacement of a disc spacer at the C4-5 level. The surgical hardwareappears well-positioned and intact on lateral projection. Alignment isanatomic. IMPRESSION: Satisfactory appearance following anterior fusion and placement of a discspacer at the C4-5 level. Code 46580 The dose-area product for this procedure was 21.55 uGy*m2. PQRI CPT II G9500 -------- FINAL REPORT -------- Dictated By: Hung Glass Dictated Date: 01/26/2025 12:08 ET Assigned Physician: Hung Glass Reviewed and Electronically Signed By: Hung Glass Signed Date: 01/26/2025 12:10 ET Workstation ID: [id number] Transcribed By: Self Edit Transcribed Date: 01/26/2025 12:08 ET us Natalia Marinelli MD IMG XR PROCEDURES Final Result * TH AN ENDOTRACHEAL(NO CHARGE) (01/25/2025 10:56 AM EDT) Robles Tucker SRNA - 01/25/2025 10:56 AM EDT JAD Briscoe 01/25/2025 10:58 AM General Information and Staff Patient location during procedure: OR Performed: other anesthesia staff Performed by: JAD Briscoe Authorized by: Vladimir Dawson DO Intubation Urgency: elective Final Airway Details Successful airway: ETT Cuffed: yes Successful intubation technique: video laryngoscopy Endotracheal tube insertion site: oral Blade size: #3 ETT size (mm): 7.5 Cormack-Lehane Classification: grade IIa - partial view of glottis Placement verified by: chest auscultation and capnometry Cuff volume (mL): 8 Measured from: lips ETT to lips (cm): 23 Number of attempts at approach: 1 Ventilation between attempts: BVMFinal airway type: endotracheal airway Indications and Patient Condition Indications for airway management: anesthesia and airway protection Spontaneous ventilation: present Sedation level: Yes Preoxygenated: yes Soft Tissue Damage: No Dentition Unchanged: No Patient position: neutral Mask difficulty assessment: 2 - vent by mask + OA or adjuvant +/- NMBA us Vladimir Dawson DO ANESTHESIA ORDERABLES Final Result * ECG 12 lead - Procedural (No Charge) (01/25/2025 8:14 AM EDT) Ventricular Rate ECG 57 BPM GEMUSE Atrial Rate 375 BPM GEMUSE QRS Duration 120 ms GEMUSE Q-T Interval 434 ms GEMUSE QTc 422 ms GEMUSE R Roscoe 41 degrees GEMUSE T [place]coe 19 degrees GEMUSE ECG Interpretation Atrial fibrillation with slow ventricular response RSR' or QR pattern in V1 suggests right ventricular conduction delay Abnormal ECG When compared with ECG of 28-JUN-2024 10:11, Vent. rate has decreased BY 33 BPM Confirmed by Darby YANG YUFENG ([id number]) on 01/25/2025 1:26:53 PM GEMUSE 01/25/2025 8:14 AM EDT 01/25/2025 1:26 PM EDT us Natalia Marinelli MD ECG ORDERABLES Final Result GEMUSE * (ABNORMAL) Comprehensive metabolic panel (06/28/2024 8:20 AM EST) Sodium 133 133 - 145 mmol/L LAB CHEMISTRY METHOD 06/28/2024 9:12 AM EST [facility] Potassium 3.7 3.5 - 5.5 mmol/L LAB CHEMISTRY METHOD 06/28/2024 9:12 AM EST [facility] Chloride 93(L) 96 - 110 mmol/L LAB CHEMISTRY METHOD 06/28/2024 9:12 AM EST [facility] CO2 31 21 - 32 [...] [facility] Comment:Calculation based on the Chronic Kidney Disease Epidemiology Collaboration (CKD-EPI) equation refit without adjustment for race. BUN/Creatinine Ratio 18.0 LAB [...] LAB CHEMISTRY METHOD 06/28/2024 9:12 AM EST [facility] Blood Venous blood specimen / Unknown Venipuncture / Unknown 06/28/2024 8:20 AM EST 06/28/2024 8:23 AM EST us Judy Stevens DO LAB BLOOD ORDERABLES Ioana l Result [facility] [address] [place] [address], from Last 3 Months or Most Recently Relevant to Health Maintenance Insurance [facility] Advance Directives * Full Code - Default (Latest Code Status on File) Date Activated Date Inactivated Comments 01/25/2025 8:02 AM 01/25/2025 5:35 PM This is orde r is used [...] currently active code status orders. Care Teams Patient Resource Specialist Relationship Specialty Start Date End Date Anthony Ruiz MD [address] [place] [address] Dr [address] [facility] [place] [address] PCP - General Internal Medicine 01/26/21
[2025-03-17 09:20] VITALS: BP 110/60; PULSE 55; O2SAT 98; BMI 28.8
== END 2025-03-17 09:51 | disposition home or self-care (01) ==
LOC: HO.HCC 09:03
PROVIDERS: PCP Internal Medicine
DX: F11.20 Opioid dependence, uncomplicated (principal)

== ENCOUNTER → 2025-03-17 09:03 | Outpatient (BNVA) | payer OTHER, SELFPAY | PROVIDERS: PCP Internal Medicine | DX: F11.20 Opioid dependence, uncomplicated (principal) | CPT/HCPCS: 96372; Q9991 ==

== ENCOUNTER 2025-04-15 09:44 | Outpatient (AMB) | payer OTHER, SELFPAY ==
--- NOTE | 2025-04-15 10:04 | AM.OFFVISNUR ---
Vital Signs 04/15/25 10:12 Height 5 ft 9 in Weight 90.265 kg BMI 29.4 BP 110/70 Pulse 74 Pulse Oximetry (%) 96 Intake Visit Reasons: Injection Allergies No Known Allergies Allergy (Verified 04/15/25 10:13) Nursing Note Ed is present today gfor his 4 week Sublocade injection. Ed is alert, oriented, cooperative with care and presents with appropriate affect. Ed reports no negative symptoms between, and denies any issue with the injections. His hernia repair surgery went smoothly-he was back to the gym the next day. Follow up scheduled in 4 weeks for the next injection. Office Meds Sublocade 100 mg/0.5 mL solution,extended release subcutaneous syringe Performing Provider: Dana Jo MD Performing Location: [facility] Administered by: Ana Decker RN on 04/15/25 10:18 Dose Route Admin Location Dispensed Lot Number Expiration Date [facility] Assistant Plant Control Operator 100 mg subcut LUQ 0.5 mL [id number] 11/09/25 [id number] [employer] Total Dispensed Waste 0.5 mL 0 % Comments: Pt is present for 100 mg Sublocade injection, pt denies complications with previous injections and tolerated injection well. Pt educated on signs and symptoms of infection at the injection site, urged to call [facility] with any questions or concerns. Follow up appointment made in 4 weeks for next injection. Assessment & Plan Assessment & Plan Orders: Orders AMB Buprenorphine Injection Today F11.20 - Opioid dependence, uncomplicated Coding
[2025-04-15 10:12] VITALS: BP 110/70; PULSE 74; O2SAT 96; BMI 29.4
--- OUTSIDE RECORDS SUMMARY | 2025-04-15 10:35 | XMS_ITS | Clinical Summary ---
Author Organization [facility] Address [address] [place] [address] Phone Care Team Providers Care Needle Bar Molder Name Role Phone Anthony Ruiz MD Primary Care Provider [phone] Allergies No known active allergies Medications guselkumab [...] AT 5PM WITH PLENTY OF WATER 12/10/19 Active apixaban (ELIQUIS) 5 mg tablet Take 1 tablet (5 mg total) by mouth 2 (two) times a day. Active oxyCODONE (OXY-IR) 5 mg immediate release capsuleIndicati ons:Cervical spondylitic cord compression Take 1-2 capsules (5-10 mg total) by mouth every 6 (six) hours if needed for severe pain. Max Daily Amount: 40 mg 40 capsule 01/26/20 25 025 Discontinu ed(Stop Taking at Discharge) oxyCODONE-aceta minophen (PERCOCET) 5-325 mg per tabletIndicatio ns:Inguinal hernia of right side without obstruction or gangrene Take 1 tablet by mouth every 6 (six) hours if needed for moderate pain for up to 3 days. Max Daily Amount: 4 tablets 10 tablet 03/18/20 25 025 Active Problems Problem Noted Date Diagnosed Date [...] his muscle antibody testing. Assessment & Plan (03/31/2025 12:11 PM EDT): Mr. Bauman is doing well since his C4-5 anterior cervical discectomy and fusion. He has had relief of his preoperative symptoms. He is pleased with his postoperative results and I would agree with him. He will follow-up with Dr. Marinelli at the 1 year anniversary from his surgery with new x-rays or sooner if he is having any trouble. Assessment & Plan (02/04/2025 1:34 PM EDT): [...] no instability on the flexion-extension x-rays from [place] yesterday though there is a little gap [...] is requesting [place] [facility]. All postop questions answered. I asked him to call with any concerns or questions prior to his next appointment. Resolved Problems Problem Noted Date Diagnosed Date Resolved Date Inguinal hernia of right pavel e without obstruction or gangrene 02/19/2025 03/18/2025 Encounters Date Type Department Care Team Description 03/31/2025 10:30 AM EDT Office Visit Neurosurgery [place] [facility] [address] [facility] [address] [place] [address] Gentry Lizama PA Cervical spondylitic cord compression (Primary Dx) 03/31/2025 10:26 AM EDT - 03/31/2025 11:59 PM EDT Hospital Encounter [facility] Xray [address] [place] [address] Discharge Disposition: Home or Self Care 03/31/2025 9:30 AM EDT Office Visit General Surgery [facility] [address] [facility] [address] [place] [address] Francesco Duncan, DO 03/18/2025 10:25 AM EDT Anesthesia Event [facility] Main OR [address] [place] [address] Davi Dos Santos MD 03/18/2025 9:30 AM EDT - 03/18/2025 11:30 AM EDT Surgery [facility] Main OR [address] [place] [address] Manav Gibbs MD DAVINCI RIGHT INGUINAL HERNIA REPAIR W/MESH [07724 (CPT )] 03/18/2025 8:14 AM EDT - 03/18/2025 2:40 PM EDT Hospital Encounter [facility] OR [address] [place] [phone] Manav Gibbs MD Inguinal hernia of right side without obstruction or gangrene (Primary Dx) Discharge Disposition: Home or Self Care 03/05/2025 Telephone General Surgery [address] [phone] Manav Gibbs MD 03/04/[address] [phone] Manav Gibbs MD 02/19/2025 8:00 AM EDT Consult [address] [address] Manav Gibbs MD Inguinal hernia of right side without obstruction or gangrene (Primary Dx) 02/16/2025 Telephone Neurosurgery [address] [phone] Raymundo KhanROCKWOOD, [place] 02/04/2025 1:00 PM EDT Office Visit Neurosurgery [address] [address] Lory Devine PA Cervical spondylitic cord compression (Primary Dx) 01/25/2025 10:25 AM EDT Anesthesia Event [facility] OR [address] [place] [phone] Vladimir Dawson DO Lema Alava, Steven, SRNA 01/25/2025 9:30 AM EDT - 01/25/2025 11:30 AM EDT Surgery [facility] OR [address] [place] [phone] Natalia Marinelli MD C4-5 ANTERIOR CERICAL DISCECTOMY, FUSION AND PLATING [25201 (CPT ) +2 more] 01/25/2025 7:57 AM EDT - 01/25/2025 3:30 PM EDT Hospital Encounter [facility] Main OR [address] [place] [phone] Natalia Marinelli MD Cervical spondylitic cord compression (Primary Dx) Discharge Disposition: Home or Self Care 01/25/2025 7:25 AM EDT - 01/25/2025 11:59 PM EDT Hospital Encounter [facility] Xray [address] [place] [phone] Pain Discharge Disposition: Home or Self Care 01/25/2025 Telephone Neurosurgery [facility] [address] [phone] Natalia Marinelli MD 01/20/2025 Telephone Neurosurgery [facility] [address] [phone] Natalia Marinelli MD from Last 3 Months Immunizations Name Administration [...] REPLACEMENT DISC ANTERIOR LUMBAR SPINE LUMBAR DISCECTOMY HERNIA REPAIR 03/18/2025 Right Da Patricia assisted right inguinal hernia repair with mesh (Dr. Gibbs) Medical History Medical History Date Comments Heart disease 2008 asd repair Hypercholesterolemia Obesity 2020 morbid Scoliosis Atrial fibrillation (CMS/HCC V24, CMS/HCC V28) unknown how long in found when had recent echo no tx Essential hypertension Adverse effect of anesthesia CHF (congestive heart failur e) ([facility] [place] V24, [facility] V28) Arrhythmia A-fib ([facility] V24, [facility] V28) Irregular heart beat History of transfusion Arthritis Joint pain Hx of scoliosis Cervical stenosis of spine Inguinal hernia of right pavel e without obstruction or gangrene Social History Tobacco Use Types Packs/Day Years Used Date Smoking Tobacco: Never Passive Smoke Exposure: Never Smokeless Tobacco: Never Tobacco Cessation:Counseling Given: Not Answered Alcohol Use Standard Drinks/Week Comments Never 0 (1 standard drink = 0.6 oz pur e alcohol) Interpersonal Safety Answer Date Record ed Physical Abuse 03/18/2025 Verbal Abuse 03/18/2025 Sex and Gender Information Value Date Recorded Sex Assigned at Male 06/17/2024 9:01 AM EST Legal Sex Male 8:21 PM EST Gender Identity Male 06/17/2024 9:01 AM EST Sexual Orientation Straight 06/17/2024 9: 01 AM EST Obstetrics History Last Filed Vital Signs Vital Sign Reading Time Taken Comments Blood Pressure 122/74 03/31/2025 9:39 AM EDT Pulse 67 03/31/2025 9:39 AM EDT Temperature 36.4 C (97.5 F) 03/31/2025 9:39 AM EDT Respiratory Rate 20 03/18/2025 1:20 PM EDT Oxygen Saturation 95% 03/18/2025 2:40 PM EDT Inhaled Oxygen Concentration - - Weight 80.7 kg (178 lb) 03/31/2025 11:20 AM EDT Height 177.8 cm (5' 10 ) 03/31/2025 11:20 AM EDT Body Mass Index 25.54 03/31/2025 11:20 AM EDT Plan of Treatment Upcoming Encounters Date Type Department Care Team (Late st Contact Info) Description 06/29/2025 8:30 AM EST Office Visit General Surgery - [place] 175 [facility] [address] [place] [phone] Francesco Duncan, DO 175 [facility] [employer] [address] [place] [address] Health Maintenance Due Date Last Done Comments Hepatitis B Vaccines (1 of 3 - 19+ 3-dose series) 1986 Pneumococcal Vaccine: 50+ Years (1 of 1 - PCV) 2017 Zoster Vaccines (1 of 2) 2017 COVID-19 Vaccine ( - 2023- season) 2024 05/16/2023, 05/28/2022, 12/04/2021, Additional history [...] this topic Medical Devices Implanted Type Area Nursing Tech Device Identifier Shelf Expiration Date Model / Serial / Lot L-Asr Syed Canc [id number] Fd Fee - [id number] - [id number] Implanted:Qty : 1 on 06/18/2024 by Natalia Marinelli MD at [facility] [employer] Bone N/A: Spine Cervical [employer]ink[employer] 10/17/2036 [id number] / [id number] / [id number] Powder Surgifoam Absorb Gel - S1978 - [id number] Implanted:Qty : 1 on 06/18/2024 by Natalia Marinelli MD at [facility] [employer] N/A: Spine Cervical JNJ [employer] 01/13/20261977 / [id number] Powder Surgifoam Absorb Gel - Sna - [id number] Implanted:Qty : 1 on 01/25/2025 by Natalia Marinelli MD at [facility] [employer] N/A: Spine Cervical [employer] [id number] 10/08/20261977 / [id number] Spinal Hardware Spinal Hardware N/A: Spine Lumbar Screw Cerv [address] 15x3.5mm - S0000 - [id number] Implanted:Qty : 4 on 06/18/2024 by Natalia Marinelli MD at [facility] Spinal Hardware N/A: Spine Cervical MEDTRON[employer] SOFAMOR DANEK [id number] / 0000 / 0000 Plate Spin Cerv Ant Zevo 19mm - Sna - [id number] Implanted:Qty : 1 on 06/18/2024 by Natalia Marinelli MD at [facility] Spinal Hardware N/A: Spine Cervical [employer] SOFAMOR DANEK [id number] / NA / NA Plate Spin Cerv Ant Zevo 19mm - Sna - [id number] Implanted:Qty : 1 on 01/25/2025 by Natalia Marinelli MD at [facility] Spinal Hardware N/A: Spine Cervical [employer] SOFAMOR DANEK [id number] / NA / NA Screw Cerv [address] 15x3.5mm - Sna - [id number] Implanted:Qty : 4 on 01/25/2025 by Natalia Marinelli MD at [facility] Spinal Hardware N/A: Spine Cervical [employer] SOFAMOR DANEK [id number] / NA / NA Mesh 3dmax Lght Lg 4.1x6.2 R 4.1x6.2in - Sna - [id number] Implanted:Qty : 1 on 03/18/2025 by Manav Gibbs MD at [facility] Surgical Mesh Sling Implants Right: Pelvis CR BARD - DAVOL DIV [id number] 08/08/2029 [id number] / NA / [id number] Lordotic Asr Cortical Cancellous Block Implanted:Qty : 1 on 01/25/2025 by Natalia Marinelli MD at [facility] N/A: Spine Cervical [employer] [id number] 06/16/2027 [id number] / [id number] / [id number] Procedures Procedure Name Priority Date/Time Associated Diagnosis Comments XR CERVICAL SPINE 4-5 VIEWS Routine 03/31/2025 10:43 AM EDT Spinal stenosis, cervical region TH AN ENDOTRACHEAL(NO CHARGE) Routine 03/18/2025 10:46 AM EDT NC LAP SURG REPR INITIAL INGUINAL HERNIA 03/18/2025 10:25 AM EDT Inguinal hernia of right side without obstruction or gangrene Special Needs R/S FROM 04/15 PER JOSE RAUL VIA PHONE AC 03/04DAVINCI repair right inguinal hernia with mesh ? Open - asking 90 minutes for this case OXYGEN THERAPY, ADULT Routine 01/25/2025 1:02 PM EDT XR SPINE 1 VIEW Routine 01/25/2025 12:25 PM EDT Pain TH AN ENDOTRACHEAL(NO CHARGE) Routine 01/25/2025 10:56 AM EDT NC ALLOGRAFT STRUCTURAL SPINE SURGERY ONLY 01/25/2025 10:25 AM EDT Spinal stenosis, cervical region Case Notes C-Arm, medtronic zevo cornerstone lasr Special Needs 01/22 move case up to 9:30 per Raymundo via phone 01/22 JT NC INSTRUMENTATION ANTERIOR 2-3 VERTEBRAL SEGMENTS 01/25/2025 10:25 AM EDT Spinal stenosis, cervical region Case Notes C-Arm, medtronic zevo [employer]stone lasr Special Needs 01/22 move case up to 9:30 per Raymundo via phone 01/22 JT NC ARTHRDS ANT I-B DISCECTOMY DECMPR SPINAL CORD/NERVE [...] Relevant to Health Maintenance Results * XR Cervical Spine 4-5 Views (03/31/2025 10:43 AM EDT) Anatomical Region Laterality Modality Spine, C-spine Radiographic Tracey ging 03/31/2025 10:4 9 AM EDT Impressions 03/31/2025 10:54 AM EDT Satisfactory appearance following anterior fusion at the C3-4 and C4-5 levels. Reversal of the cervical lordosis consistent with muscle spasm and surgery. There is no abnormal relative bony motion with flexion and extension. Range of motion is extremely limited. 25 degree dextroscoliosis of the cervicothoracic thoracic spine with the apex at T5-6. There is a known fracture of the upper aspect of the Martinez shahid in the thoracic spine. Code 88620 -------- FINAL REPORT -------- Dictated By: Hung Glass Dictated Date: 03/31/2025 10:49 ET Assigned Physician: Hung Glass Reviewed and Electronically Signed By: Hung Glass Signed Date: 03/31/2025 10:54 ET Workstation ID: [id number] Transcribed By: Self Edit Transcribed Date: 03/31/2025 10:49 ET Narrative 03/31/2025 10:54 AM EDT HISTORY: The patient is a 59-year-old female for follow-up of cervical spine surgery. FINDINGS: Lateral views of the cervical spine in neutral, flexion, and extension positions, along with an AP view, are obtained. There is marked bony demineralization. The patient is seen to have undergone previous anterior fusion at the C3-4 and C4-5 levels; the procedure at C4-5 was performed on 01/25/2025 while that at C3-4 was performed on 06/18/2024. The surgical hardware remains well- positioned and intact. There is reversal of the cervical lordosis consistent with surgery and/or muscle spasm. There is no abnormal relative bony motion with flexion and extension. Range of motion is extremely limited. There is 25 degree dextroscoliosis of the cervicothoracic spine with the apex at the T5-6 level. No fracture is seen in the cervical spine. Partially included on this study is a Martinez rods in the thoracic spine which is fractured, as also seen on the chest radiograph performed 06/18/2024. Procedure Note Hung Glass MD - 03/31/2025 HISTORY: The patient is a 59-year-old female for follow-up of cervicalspine surgery. FINDINGS: Lateral views of the cervical spine in neutral, flexion, andextension positions, along with an AP view, are obtained. There is markedbony demineralization. The patient is seen to have undergone previousanterior fusion at the C3-4 and C4-5 levels; the procedure at C4-5 wasperformed on 01/25/2025 while that at C3-4 was performed on 06/18/2024. Thesurgical hardware remains well-positioned and intact. There is reversal ofthe cervical lordosis consistent with surgery and/or muscle spasm. Thereis no abnormal relative bony motion with flexion and extension. Range ofmotion is extremely limited. There is 25 degree dextroscoliosis of thecervicothoracic spine with the apex at the T5-6 level. No fracture is seenin the cervical spine. Partially included on this study is a Martinez rods in the thoracicspine which is fractured, as also seen on the chest radiograph leppstkdr94/7/2024. IMPRESSION: Satisfactory appearance following anterior fusion at the C3-4 and C4-5levels. Reversal of the cervical lordosis consistent with muscle spasm andsurgery. There is no abnormal relative bony motion with flexion andextension. Range of motion is extremely limited. 25 degree dextroscoliosisof the cervicothoracic thoracic spine with the apex at T5-6. There is aknown fracture of the upper aspect of the Martinez shahid in the thoracicspine. Code 43498 -------- FINAL REPORT -------- Dictated By: Hung Glass Dictated Date: 03/31/2025 10:49 ET Assigned Physician: Hung Glass Reviewed and Electronically Signed By: Hung Glass Signed Date: 03/31/2025 10:54 ET Workstation ID: [id number] Transcribed By: Self Edit Transcribed Date: 03/31/2025 10:49 ET us Lory KIRK IMG XR PROCEDURES Final Re sult * TH AN ENDOTRACHEAL(NO CHARGE) (03/18/2025 10:46 AM EDT) Niurka Jha CRNA - 03/18/2025 10:46 AM EDT Niurka Lucio CRNA 03/18/2025 10:48 AM General Information and Staff Patient location during procedure: OR Resident/CHECKER LOADER: Niurka Lucio CRNA Performed: resident/CHECKER LOADER/CAA Performed by: Niurka Lucio CRNA Authorized by: Davi Dos Santos MD Intubation Additional Comments Elective GS intubation 2/2 severe scoliosis and limited cervical ROM Airway not difficult Urgency: elective Final Airway Details Successful airway: ETT Cuffed: yes Successful intubation technique: video laryngoscopy Facilitating devices/methods: intubating stylet Blade: Errol Blade size: #3 ETT size (mm): 7.5 Cormack-Lehane Classification: grade I - full view of glottis Placement verified by: chest auscultation and capnometry Measured from: lips ETT to lips (cm): 22 Number of attempts at approach: 1Final airway type: endotracheal airway Indications and Patient Condition Indications for airway management: anesthesia and airway protection Spontaneous ventilation: present Sedation level: Yes Preoxygenated: yes Soft Tissue Damage: No Dentition Unchanged: Yes Patient position: sniffing MILS maintained throughout Mask difficulty assessment: 2 - vent by mask + OA or adjuvant +/- NMBA us Davi Dos Santos MD ANESTHESIA ORDERABLES Final R esult * XR Spine 1 View (01/25/2025 12:25 PM EDT) Anatomical Region Laterality Modality Spine Radio Fluoroscop y 01/26/2025 12:0 8 PM EDT Impressions 01/26/2025 12:10 PM EDT Satisfactory appearance following anterior fusion and placement of a disc spacer at the C4-5 level. Code 89157 The dose-area product for this procedure was 21.55 uGy*m2. PQRI CPT II G9500 -------- FINAL REPORT -------- Dictated By: Hung Glass Dictated Date: 01/26/2025 12:08 ET Assigned Physician: Hung Glass Reviewed and Electronically Signed By: Hung Glass Signed Date: 01/26/2025 12:10 ET Workstation ID: [id number] Transcribed By: Self Edit Transcribed Date: 01/26/2025 [...] a discspacer at the C4-5 level. Code 89989 The dose-area product for this procedure was 21.55 uGy*m2. PQRI CPT II G9500 -------- FINAL REPORT -------- Dictated By: Hung Glass Dictated Date: 01/26/2025 12:08 ET Assigned Physician: Hung Glass Reviewed and Electronically Signed By: Hung Glass Signed Date: 01/26/2025 12:10 ET Workstation ID: [id number] Transcribed By: Self Edit Transcribed Date: 01/26/2025 12:08 ET Natalia Marinelli MD IMG XR PROCEDURES Final [...] mask + OA or adjuvant +/- NMBA Vladimir Dawson DO ANESTHESIA ORDERABLES Final Result * ECG 12 lead - Procedural (No Charge) (01/25/2025 8:14 AM EDT) Ventricular Rate ECG 57 BPM GEMUSE Atrial Rate 375 BPM GEMUSE QRS Duration 120 ms GEMUSE Q-T Interval 434 ms GEMUSE QTc 422 ms GEMUSE R Baker 41 degrees GEMUSE T Baker 19 degrees GEMUSE ECG Interpretation Atrial fibrillation [...] mmol/L LAB CHEMISTRY METHOD 06/28/2024 9:12 AM [facility] Potassium 3.7 3.5 - 5.5 mmol/L LAB CHEMISTRY METHOD 06/28/2024 9:12 AM [facility] Chloride 93(L) 96 - 110 mmol/L LAB CHEMISTRY METHOD 06/28/2024 9:12 AM [facility] CO2 31 21 - 32 mmol/L LAB CHEMISTRY METHOD 06/28/2024 9:12 AM [facility] Anion Gap 9 3 - 11 LAB CHEMISTRY METHOD 06/28/2024 9:12 AM [facility] Glucose 132(H) 70 - 100 mg/dL LAB CHEMISTRY METHOD 06/28/2024 9:12 AM [facility] BUN 23 5 - 25 mg/dL LAB CHEMISTRY METHOD 06/28/2024 9:12 AM [facility] Creatinine 1.28 0.70 - 1.30 mg/dL LAB CHEMISTRY METHOD 06/28/2024 9:12 AM [facility] eGFR 66 >=60 mL/min/1. 73m2 LAB CHEMISTRY METHOD 06/28/2024 9:12 AM [facility] Comment:Calculation based on the Chronic Kidney Disease Epidemiology Collaboration (CKD-EPI) equation refit without adjustment for race. BUN/Creatinine Ratio 18.0 LAB CHEMISTRY METHOD 06/28/2024 9:12 AM [facility] Calcium 9.2 8.5 - 10.5 mg/dL LAB CHEMISTRY METHOD 06/28/2024 9:12 AM [facility] AST (SGOT) 78(H) 10 - 42 unit/L LAB CHEMISTRY METHOD 06/28/2024 9:12 AM [facility] ALT (SGPT) 58 10 - 60 unit/L LAB CHEMISTRY METHOD 06/28/2024 9:12 AM [facility] Alkaline Phosphatase 64 42 - 121 unit/L LAB CHEMISTRY METHOD 06/28/2024 9:12 AM [facility] Total Protein 7.1 6.0 - 8.0 g/dL LAB CHEMISTRY METHOD 06/28/2024 9:12 AM [facility] Albumin 3.3 3.2 - 5.0 g/dL LAB CHEMISTRY METHOD 06/28/2024 9:12 AM [facility] Total Bilirubin 0.5 0.0 - 1.4 mg/dL LAB CHEMISTRY METHOD 06/28/2024 9:12 AM [facility] Blood Venous blood specimen / Unknown Venipuncture / Unknown 06/28/2024 8:20 AM EST 06/28/2024 8:23 AM EST Judy Stevens DO LAB BLOOD ORDERABLES Ioana l Result [facility] [address] [place] [address], from Last 3 Months or Most Recently Relevant to Health Maintenance [facility] Advance Directives * Full Code - Default (Latest Code Status on File) Date Activated Date Inactivated Comments 03/18/2025 8:20 AM 03/18/2025 4:55 PM This is order is used when code status has not been discussed with the patient, or code status is otherwise unknown/unconfirmed To update the patient's code status, place a code status order. Do not modify or discontinue any currently active code status orders. * Full Code - Default Date Activated Date Inactivated Comments 01/25/2025 8:02 [...] currently active code status orders. Care Teams Needle Bar Molder Relationship Specialty Start Date End Date Anthony Ruiz MD [address] [place] [address] [address] [facility] [place] [address] PCP - General Internal Medicine 01/26/21
== END 2025-04-15 10:29 | disposition home or self-care (01) ==
LOC: HO.HCC 09:44
PROVIDERS: PCP Internal Medicine
DX: F11.20 Opioid dependence, uncomplicated (principal)

== ENCOUNTER → 2025-04-15 09:44 | Outpatient (BNVA) | payer OTHER, SELFPAY | PROVIDERS: PCP Internal Medicine | DX: F11.20 Opioid dependence, uncomplicated (principal); Z79.899 Other long term (current) drug therapy | CPT/HCPCS: 96372; Q9991 ==

== ENCOUNTER 2025-05-13 10:24 | Outpatient (AMB) | payer OTHER, SELFPAY ==
--- NOTE | 2025-05-13 10:31 | AM.OFFVISNUR ---
Vital Signs 05/13/25 10:35 Height 5 ft 9 in BP 116/76 Pulse 58 Pulse Oximetry (%) 96 Intake Visit Reasons: Injection Allergies No Known Allergies Allergy (Verified 05/13/25 10:36) Nursing Note Ed is present today for his q4 week Sublocade injection. Ed is alert, oriented, cooperative with care and presents with appropriate affect. Ed reports no negative symptoms reported related to the injections but has concern related to travel and not having any SL bridge availability. Request for SL bridge sent to provider. Follow up scheduled in 4 weeks for the next injection. Office Meds Sublocade 100 mg/0.5 mL solution,extended release subcutaneous syringe Performing Provider: Dana Jo MD Performing Location: [facility] Administered by: Ana Decker RN on 05/13/25 10:34 Dose Route Admin Location Dispensed Lot Number Expiration Date [facility] Film [employer]poser 100 mg subcut RLQ 0.5 mL [id number] 11/09/25 [id number] [employer] Total Dispensed Waste 0.5 mL 0 % Comments: Pt is present for 100 mg Sublocade injection, pt denies complications with previous injections and tolerated injection well. Pt educated on signs and symptoms of infection at the injection site, urged to call [facility] with any questions or concerns. Follow up appointment made in 4 weeks for next injection. Assessment & Plan Assessment & Plan Orders: Orders AMB Buprenorphine Injection Today F11.20 - Opioid dependence, uncomplicated Coding
[2025-05-13 10:35] VITALS: BP 116/76; PULSE 58; O2SAT 96
--- OUTSIDE RECORDS SUMMARY | 2025-05-13 11:55 | XMS_ITS | Clinical Summary ---
Author Organization [facility] Address [address] [place] [address] Phone Care Team Providers Care Bookkeeping Machine Mechanic Name Role Phone Anthony Ruiz MD Primary Care Provider [phone] Allergies No known active allergies Medications guselkumab [...] Active Laxative, bisacodyl, 5 mg EC tablet 5 Active apixaban (ELIQUIS) 5 mg tablet Take 1 tablet (5 mg total) by mouth 2 (two) times a day. Active diclofenac (Voltaren Arthritis Pain) 1 % topical gel Apply 2 g topically 4 (four) times a day. 150 g 1 5 Active acetaminophen (TYLENOL) 500 mg tablet Take 2 tablets (1,000 mg total) by mouth every 6 (six) hours if needed for mild pain for up to 10 days. 30 tablet 5 05/01/20 25 minocycline (DYNACIN) 100 mg tablet Take 1 tablet (100 mg total) by mouth 2 (two) times a day for 10 doses. 10 each 1 5 05/04/20 25 Active Problems Problem Noted Date Diagnosed Date [...] no instability on the flexion-extension x-rays from [place] yesterday though there is a little gap [...] is requesting [place] [facility] faxed [place]. All postop questions answered. I asked him to call with any concerns or questions prior to his next appointment. 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 04/21/2025 3:00 PM EDT Consult Orthopedic [address] [place] [phone] Raquel Lo PA Ulnar impaction syndrome, right (Primary Dx); Olecranon bursitis, right elbow 03/31/2025 10:30 AM EDT Office Visit Neurosurgery [facility] [address] [facility] [address] [place] [address] Gentry Lizama PA Cervical spondylitic cord compression (Primary Dx) 03/31/2025 10:26 AM EDT - 03/31/2025 11:59 PM EDT Hospital Encounter [facility] Xray [address] [place] [address] Discharge Disposition: Home or Self Care 03/31/2025 9:30 AM EDT Office Visit General [address] [phone] Franecsco Duncan, DO S/P right inguinal hernia repair, follow-up exam (Primary Dx) 03/18/2025 10:25 AM EDT Anesthesia Event [facility] OR [address] [place] [phone] Davi Dos Santos MD 03/18/2025 9:30 AM EDT - 03/18/2025 11:30 AM EDT Surgery [facility] OR [address] [place] [phone] Manav Gibbs MD DAVINCI RIGHT INGUINAL HERNIA REPAIR W/MESH [15143 (CPT )] 03/18/2025 8:14 AM EDT - 03/18/2025 2:40 PM EDT Hospital Encounter [facility] OR [address] [place] [phone] Manav Gibbs MD Inguinal hernia of right side without obstruction or gangrene (Primary Dx) Discharge Disposition: Home or Self Care 03/05/[address] [address] Manav Gibbs MD 03/04/[address] [address] Manav Gibbs MD 02/19/2025 8:00 AM EDT Consult [address] [address] Manav Gibbs MD Inguinal hernia of right side without obstruction or gangrene (Primary Dx) 02/16/2025 Telephone Neurosurgery [address] [phone] Muriel Khan MA from Last 3 Months Immunizations Immunization Administration Dates Next Due Influenza Quadravalent, MDCK [...] DISCECTOMY W/ FUSION 06/18/2024 N/A C3-4 ACDF, , [facility] SPINE SURGERY COLONOSCOPY REPLACEMENT DISC ANTERIOR LUMBAR SPINE LUMBAR DISCECTOMY HERNIA REPAIR 03/18/2025 Right Da Patricia assisted right inguinal hernia repair with mesh (Dr. Gibbs) Medical History Medical History Date Comments Heart disease 2008 asd repair Hypercholesterolemia Obesity 2020 morbid Scoliosis Atrial fibrillation ([facility] V24, [facility] V28) unknown how long in found when had recent echo no tx Essential hypertension Adverse effect of anesthesia CHF (congestive heart failur e) (CMS/[facility] V24, [facility] V28) Arrhythmia A-fib (CMS/[facility] V24, [facility] V28) Irregular heart beat History of transfusion [...] Safety Answer Date Record ed Physical Abuse Unrecognized value 03/18/2025 Verbal Abuse Unrecognized value 03/18/2025 Sex and Gender Information Value Date Recorded Sex Assigned at Male 06/17/2024 9:01 AM EST Legal Sex Male 8:21 PM EST Gender Identity Male 06/17/2024 9:01 AM EST Sexual Orientation Straight 06/17/2024 9: 01 AM EST Obstetrics History Last Filed Vital Signs Vital Sign Reading Time Taken Comments Blood Pressure 106/87 04/29/2025 3:14 PM EDT Pulse 83 04/29/2025 3:14 PM EDT Temperature 36.3 C (97.3 F) 04/29/2025 3:14 PM EDT Respiratory Rate 20 03/18/2025 1:20 PM EDT Oxygen Saturation 95% 03/18/2025 2:40 PM EDT Inhaled Oxygen Concentration - - Weight 87.5 kg (193 lb) 04/29/2025 3:14 PM EDT Height 177.8 cm (5' 10 ) 04/29/2025 3:14 PM EDT Body Mass Index 27.69 04/29/2025 3:14 PM EDT Plan of Treatment Upcoming Encounters Date Type Department Care Team (Late st Contact Info) Description 05/18/2025 9:45 AM EDT Office Visit General [facility] [address] [phone] Manav Gibbs MD [address] [place] [phone] 06/23/2025 9:00 AM EST Office Visit Orthopedic Surgery [address] [place] [address] Raquel Lo PA [address] [place] [address] 06/29/2025 8:30 AM EST Office Visit [address] [phone] Francesco Duncan DO [address] [address] Health Maintenance Due Date Last Done Comments Colorectal Cancer Screening: Colonoscopy 1967 Hepatitis B Vaccines (1 of 3 - 19+ 3-dose series) 1986 Pneumococcal Vaccine: 50+ Years (1 of 1 - PCV) 2017 Zoster Vaccines (1 of 2) 2017 Cholesterol Screening (Lipid Panel) 06/11/2024 HIV Screening 06/11/2024 Hepatitis C Screening 06/11/2024 Social Influencers of Health Screening 06/11/2024 Depression Screening 08/12/2024 COVID-19 Vaccine ( season) 2025 05/16/2023, 05/28/2022, 12/04/2021, Additional history exists Influenza Vaccine (#1) 2025 , 05/28/2022, 07/30/2018, Additional history exists Hypertension/CHF/CAD Annual BMP Blood Test 06/28/2025 06/28/2024 DTaP,Tdap,and Td Vaccines (2 - Td or Tdap) 07/30/2028 07/30/2018 RSV Immunization Adult Patients (1 - 1-dose 75+ series) 2042 HIB Vaccines Aged Out No longer eligi [...] this topic Medical Devices Implanted Type Area Commercial Insulator Device Identifier Shelf Expiration Date Model / Serial / Lot L-Asr Syed Canc [id number] Fd Fee - [id number] - [id number] Implanted:Qty : 1 on 06/18/2024 by Natalia Marinelli MD at [facility] [employer] Bone N/A: Spine Cervical [employer] 10/17/2036 [id number] / [id number] / [id number] Powder Surgifoam Absorb Gel - S1978 - [id number] Implanted:Qty : 1 on 06/18/2024 by Natalia Marinelli MD at [facility] [employer] N/A: Spine Cervical [employer] 01/13/20261977 / [id number] Powder Surgifoam Absorb Gel - Sna - [id number] Implanted:Qty : 1 on 01/25/2025 by Natalia Marinelli MD at [facility] [employer] N/A: Spine Cervical [employer] [id number] 10/08/20261977 / [id number] Spinal Hardware Spinal Hardware N/A: Spine Lumbar Screw Cerv [address] 15x3.5mm - [id number] - [id number] Implanted:Qty : 4 on 06/18/2024 by Natalia Marinelli MD at [facility] Spinal Hardware N/A: Spine Cervical [employer] SOFAMOR DANEK [id number] / 0000 / 0000 Plate Spin Cerv Ant Zevo 19mm - Sna - [id number] Implanted:Qty : 1 on 06/18/2024 by Natalia Marinelli MD at [facility] Spinal Hardware N/A: Spine Cervical [employer] [id number] / NA / NA Plate Spin Cerv Ant Zevo 19mm - Sna - [id number] Implanted:Qty : 1 on 01/25/2025 by Natalia Marinelli MD at [facility] Spinal Hardware N/A: Spine Cervical [employer] [id number] / NA / NA Screw Cerv [address] 15x3.5mm - Sna - [id number] Implanted:Qty : 4 on 01/25/2025 by Natalia Marinelli MD at [facility] Spinal Hardware N/A: Spine Cervical [employer] [id number] / NA / NA Mesh 3dmax Lght Lg 4.1x6.2 R 4.1x6.2in - Sna - [id number] Implanted:Qty : 1 on 03/18/2025 by Manav Gibbs MD at [facility] Surgical Mesh Sling Implants Right: Pelvis CR BARD - DAVOL DIV [id number] 08/08/2029 [id number] / NA / [id number] Lordotic Asr Cortical Cancellous Block Implanted:Qty : 1 on 01/25/2025 by Natalia Marinelli MD at [facility] N/A: Spine Cervical [employer] [id number] 06/16/2027 [id number] / [id number] / [id number] Procedures Procedure Name Priority Date/Time Associated Diagnosis Comments XR ELBOW 3+ VIEWS RIGHT Routine 04/21/2025 3:12 PM EDT Pain XR WRIST 3+ VIEWS RIGHT Routine 04/21/2025 3:12 PM EDT Pain XR CERVICAL SPINE 4-5 VIEWS Routine 03/31/2025 10:43 AM EDT Spinal stenosis, cervical region TH AN ENDOTRACHEAL(NO CHARGE) Routine 03/18/2025 10:46 AM EDT MD LAP SURG REPR INITIAL INGUINAL HERNIA 03/18/2025 10:25 AM EDT Inguinal hernia of right side without obstruction or gangrene Special Needs R/S FROM 04/15 PER JOSE RAUL VIA PHONE AC 03/04DAVINCI repair right inguinal hernia with mesh ? Open - asking 90 minutes for this case COMPREHENSIVE METABOLIC PANEL STAT 06/28/2024 8:20 AM EST from Last 3 Months or Most Recently Relevant to Health Maintenance Results * XR Elbow 3+ Views Right (04/21/2025 3:12 PM EDT) Anatomical Region Laterality Modality Upper Extremities, Elbow Right Compute d Radiography Narrative 04/21/2025 4:32 PM EDT Three-view x-rays of the right elbow show no acute fractures or dislocations, no osseous lesions or abnormalites, mild swelling of the soft tissues overlying the olecranon, no significant degenerative changes Impression: Normal x-ray of the right elbow without osseous abnormalities Raquel CONSTANTINO XR PROCEDURES Edited Result - Final * XR Wrist 3+ Views Right (04/21/2025 3:12 PM EDT) Anatomical Region Laterality Modality Upper Extremities, Wrist Right Compute d Radiography Narrative 04/21/2025 4:32 PM EDT View x-rays of the right wrist show no acute fracture dislocations, diffuse degenerative changes with cystic changes of the scaphoid, lunate, first metacarpal base, radius and ulna, DRUJ. Mild calcifications distal to the ulna. Narrowing of the ulnocarpal joint. Impression: Diffuse degenerative changes Raquel KIRK IMG XR PROCEDURES Edited Result - Final * XR Cervical Spine 4-5 Views (03/31/2025 [...] Martinez shahid in the thoracic spine. Code 78950 -------- FINAL REPORT -------- Dictated By: Hung Glass Dictated Date: 03/31/2025 10:49 ET Assigned Physician: Hung Glass Reviewed and Electronically Signed By: Hung Glass Signed Date: 03/31/2025 10:54 ET Workstation ID: [id number] Transcribed By: Self Edit Transcribed Date: 03/31/2025 [...] as also seen on the chest radiograph lgccizpwv61/7/2024. IMPRESSION: Satisfactory appearance following anterior fusion at [...] the Martinez shahid in the thoracicspine. Code 68491 -------- FINAL REPORT -------- Dictated By: Hung Glass Dictated Date: 03/31/2025 10:49 ET Assigned Physician: Hung Glass Reviewed and Electronically Signed By: Hung Glass Signed Date: 03/31/2025 10:54 ET Workstation ID: [id number] Transcribed By: Self Edit Transcribed Date: 03/31/2025 10:49 ET us Lory KIRK IMG XR PROCEDURES Final Re sult * TH AN ENDOTRACHEAL(NO CHARGE) (03/18/2025 10:46 AM EDT) Niurka Jha CRNA - 03/18/2025 10:46 AM EDT Niurka Lucio CRNA 03/18/2025 10:48 AM General Information and Staff Patient location during procedure: OR Resident/REFINERY OPERATOR: Niurka Lucio CRNA Performed: resident/REFINERY OPERATOR/CAA Performed by: Niurka Lucio CRNA Authorized by: [...] MD ANESTHESIA ORDERABLES Final R esult * (ABNORMAL) Comprehensive metabolic panel (06/28/2024 8:20 AM EST) Sodium 133 133 - 145 mmol/L LAB CHEMISTRY METHOD 06/28/2024 9:12 AM EST [facility] Potassium 3.7 3.5 - 5.5 mmol/L LAB CHEMISTRY METHOD 06/28/2024 9:12 AM [facility] Chloride 93(L) 96 - 110 mmol/L LAB CHEMISTRY METHOD 06/28/2024 9:12 AM [facility] CO2 31 21 - 32 mmol/L LAB CHEMISTRY METHOD 06/28/2024 9:12 AM [facility] Anion Gap 9 3 - 11 LAB CHEMISTRY METHOD 06/28/2024 9:12 AM [facility] Glucose 132(H) 70 - 100 mg/dL LAB CHEMISTRY METHOD 06/28/2024 9:12 AM [facility] BUN 23 5 - 25 mg/dL LAB CHEMISTRY METHOD 06/28/2024 9:12 AM [facility] Creatinine 1.28 0.70 - 1.30 mg/dL LAB CHEMISTRY METHOD 06/28/2024 9:12 AM [facility] eGFR 66 >=60 mL/min/1. 73m2 LAB CHEMISTRY METHOD 06/28/2024 9:12 AM [facility] Comment:Calculation based on the Chronic Kidney Disease Epidemiology Collaboration (CKD-EPI) equation refit without adjustment for race. BUN/Creatinine Ratio 18.0 LAB CHEMISTRY METHOD 06/28/2024 9:12 AM [facility] Calcium 9.2 8.5 - 10.5 mg/dL LAB CHEMISTRY METHOD 06/28/2024 9:12 AM [facility] AST (SGOT) 78(H) 10 - 42 unit/L LAB CHEMISTRY METHOD 06/28/2024 9:12 AM [facility] ALT (SGPT) 58 10 - 60 unit/L LAB CHEMISTRY METHOD 06/28/2024 9:12 AM [facility] Alkaline Phosphatase 64 42 - 121 unit/L LAB CHEMISTRY METHOD 06/28/2024 9:12 AM [facility] Total Protein 7.1 6.0 - 8.0 g/dL LAB CHEMISTRY METHOD 06/28/2024 9:12 AM EST [facility] Albumin 3.3 3.2 - 5.0 g/dL LAB CHEMISTRY METHOD 06/28/2024 9:12 AM EST [facility] Total Bilirubin 0.5 0.0 - 1.4 mg/dL LAB CHEMISTRY METHOD 06/28/2024 9:12 AM EST [facility] Blood Venous blood specimen / Unknown Venipuncture / Unknown 06/28/2024 8:20 AM EST 06/28/2024 8:23 AM EST us Judy Stevens DO LAB BLOOD ORDERABLES Ioana l Result [facility] [address] [place] [address], [place] [phone] from Last 3 Months or Most Recently Relevant to Health Maintenance Insurance [facility] Advance Directives * Full Code - [...] currently active code status orders. Care Teams Bookkeeping Machine Mechanic Relationship Specialty Start Date End Date Anthony Ruiz MD [address] [place] [address] [address] [facility] [place] [address] PCP - General Internal Medicine 01/26/21
== END 2025-05-13 11:03 | disposition home or self-care (01) ==
LOC: HO.HCC 10:24
PROVIDERS: PCP Internal Medicine
DX: F11.20 Opioid dependence, uncomplicated (principal)

== ENCOUNTER → 2025-05-13 10:24 | Outpatient (BNVA) | payer OTHER, SELFPAY | PROVIDERS: PCP Internal Medicine | DX: F11.20 Opioid dependence, uncomplicated (principal) | CPT/HCPCS: 96372; Q9991 ==

== ENCOUNTER 2025-06-10 09:46 | Outpatient (AMB) | payer OTHER, SELFPAY ==
--- NOTE | 2025-06-10 07:51 | AM.OFFVISNUR ---
Vital Signs 06/10/25 10:00 BP 116/66 Pulse 68 Pulse Oximetry (%) 98 Intake Visit Reasons: inj Allergies No Known Allergies Allergy (Verified 06/10/25 10:01) Medication List - Last Reviewed 06/10/25 by Leah Torrez CMA apixaban (Eliquis) 5 mg PO BID buprenorphine ER (Sublocade) 100 mg (0.5 mL) subcut QMONTH 30 days fenofibrate 160 mg PO DAILY furosemide 40 mg (2 x 20 mg) PO DAILY metoprolol succinate ER 50 mg PO DAILY simvastatin 40 mg PO BEDTIME Nursing Note Ed is present today for his q4 week Sublocade injection. Ed is alert, oriented, cooperative with care and presents with appropriate affect. Ed reports no negative symptoms reported related to the injections but has concern related to travel- Request for SL bridge sent to provider. Excited for trip to the [facility] and [facility]. Follow up scheduled in 4 weeks for the next injection. Office Meds Sublocade 100 mg/0.5 mL solution,extended release subcutaneous syringe Performing Provider: Dana Jo MD Performing Location: [facility] Administered by: Ana Decker RN on 06/10/25 10:23 Dose Route Admin Location Dispensed Lot Number Expiration Date [facility] [place]NOTE 2] Aircraft Engine Cylinder Mechanic 100 mg subcut LUQ 0.5 mL [id number] 01/09/26 [address]-8 [employer] Total Dispensed Waste 0.5 mL 0 % Comments: Pt is present for 100 mg Sublocade injection, pt denies complications with previous injections and tolerated injection well. Pt educated on signs and symptoms of infection at the injection site, urged to call [facility] with any questions or concerns. Follow up appointment made in 4 weeks for next injection. Assessment & Plan Assessment & Plan Orders: Orders AMB Buprenorphine Injection Today F11.20 - Opioid dependence, uncomplicated Coding
[2025-06-10 10:00] VITALS: BP 116/66; PULSE 68; O2SAT 98
--- OUTSIDE RECORDS SUMMARY | 2025-06-10 11:28 | XMS_ITS | Clinical Summary ---
Author Organization [facility] Address [address] [place] [address] Phone Care Team Providers Care Tempering Kiln Tender Name Role Phone Anthony Ruiz MD Primary Care Provider [phone] Allergies No known active allergies Medications guselkumab [...] a day. 150 g 1 5 Active Active Problems Problem Noted Date Diagnosed [...] no instability on the flexion-extension x-rays from [place] yesterday though there is a little gap [...] is requesting to get them done at [facility], order faxed over. All postop questions answered. I asked him to call with any concerns or questions prior to his next appointment. 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 04/21/2025 3:00 PM EDT Consult Orthopedic Surgery [address] [place] [address] Raquel Lo PA Ulnar impaction syndrome, right (Primary Dx); Olecranon bursitis, right elbow 03/31/2025 10:30 AM EDT Office Visit Neurosurgery [facility] [address] [facility] [address] [place] [address] Gentry Lizama PA Cervical spondylitic cord compression (Primary Dx) 03/31/2025 10:26 AM EDT - 03/31/2025 11:59 PM EDT Hospital Encounter [facility] Xray [address] [place] [address] Discharge Disposition: Home or Self Care 03/31/2025 9:30 AM EDT Office Visit General [address] [place] [address] Francesco Duncan, S/P right inguinal hernia repair, follow-up exam (Primary Dx) 03/18/2025 10:25 AM EDT Anesthesia Event [facility] Main OR [address] [place] [address] Davi Dos Santos MD 03/18/2025 9:30 AM EDT - 03/18/2025 11:30 AM EDT Surgery [facility] Main OR [address] [place] [address] Manav Gibbs MD DAVINCI RIGHT INGUINAL HERNIA REPAIR W/MESH [86558 (CPT )] 03/18/2025 8:14 AM EDT - 03/18/2025 2:40 PM EDT Hospital Encounter [facility] Main OR [address] [place] [phone] Manav Gibbs MD Inguinal hernia of right side without obstruction or gangrene (Primary Dx) Discharge Disposition: Home or Self Care from Last 3 Months Immunizations Immunization Administration [...] DISCECTOMY W/ FUSION 06/18/2024 N/A C3-4 ACDF, Dr Adelino SPINE SURGERY COLONOSCOPY REPLACEMENT DISC ANTERIOR LUMBAR [...] of anesthesia CHF (congestive heart failur e) (CMS/HCC V24, CMS/HCC V28) Arrhythmia A-fib (CMS/HCC V24, CMS/HCC V28) Irregular heart beat History of transfusion [...] Care Team (Late st Contact Info) Description 06/23/2025 9:00 AM EST Office Visit Orthopedic Surgery - [place] [address] [facility] [address] [place] [phone] Raquel Lo, PA [address] [place] [address] 06/29/2025 8:30 AM EST Office Visit General Surgery [facility] [address] [facility] [address] [place] [phone] Francesco [place], DO [address] [place] [address] Health Maintenance Due Date Last Done Comments [...] this topic Medical Devices Implanted Type Area Physical Therapy Asst Device Identifier Shelf Expiration Date Model / Serial / Lot L-Asr Syed Can [id number] Fd Fee - [id number] - [id number] Implanted:Qty : 1 on 06/18/2024 by Natalia Marinelli MD at [facility] [employer] Bone N/A: Spine Cervical [employer] 10/17/2036 [id number] / [id number] / [id number] Powder Surgifoam Absorb Gel - S1978 - [id number] Implanted:Qty : 1 on 06/18/2024 by Natalia Marinelli MD at [facility] [employer] N/A: Spine Cervical [employer] 01/13/20261977 / 1977 / [id number] Powder Surgifoam Absorb Gel - Sna - [id number] Implanted:Qty : 1 on 01/25/2025 by Natalia Marinelli MD at [facility] [employer] N/A: Spine Cervical [employer] [id number] 10/08/20261977 / [id number] Spinal Hardware Spinal Hardware N/A: Spine Lumbar Screw Cerv Porfirio [address] 15x3.5mm - S0000 - [id number] Implanted:Qty : 4 on 06/18/2024 by Natalia Marinelli MD at [facility] Spinal Hardware N/A: Spine Cervical [employer] SOFAMOR DANEK [id number] / 0000 / 0000 Plate Spin Cerv Ant Zevo 19mm - Sna - [id number] Implanted:Qty : 1 on 06/18/2024 by Natalia Marinelli MD at [facility] Spinal Hardware N/A: Spine Cervical [employer] SO[employer] [id number] / NA / NA Plate Spin Cerv Ant Zevo 19mm - Sna - [id number] Implanted:Qty : 1 on 01/25/2025 by Natalia Marinelli MD at [facility] Spinal Hardware N/A: Spine Cervical [employer] [id number] / NA / NA Screw Cerv Porfirio [address] 15x3.5mm - Sna - [id number] Implanted:Qty : 4 on 01/25/2025 by Natalia Marinelli MD at [facility] Spinal Hardware N/A: Spine Cervical [employer] [id number] / NA / NA Mesh 3dmax Lght Lg 4.1x6.2 R 4.1x6.2in - Sna - [id number] Implanted:Qty : 1 on 03/18/2025 by Manav Gibbs MD at [facility] Surgical Mesh Sling Implants Right: Pelvis CR BARD - DAVOL DIV [id number] 08/08/2029 [id number] / NA / [id number] Lordotic Asr Cortical Cancellous Block Implanted:Qty : 1 on 01/25/2025 by Natalia Marinelli MD at [facility] N/A: Spine Cervical [employer] [id number] 06/16/2027 [id number] / [id number] / [id number] Procedures Procedure Name Priority Date/Time Associated Diagnosis Comments XR ELBOW 3+ VIEWS RIGHT Routine 04/21/2025 3:12 PM EDT Pain XR WRIST 3+ VIEWS RIGHT Routine 04/21/2025 3:12 PM EDT Pain XR CERVICAL SPINE 4-5 VIEWS Routine 03/31/2025 10:43 AM EDT Spinal stenosis, cervical region TH AN ENDOTRACHEAL(NO CHARGE) Routine 03/18/2025 10:46 AM EDT ME LAP SURG REPR INITIAL INGUINAL HERNIA 03/18/2025 [...] the right elbow without osseous abnormalities Raquel KIRK IMG XR PROCEDURES Edited Result [...] joint. Impression: Diffuse degenerative changes Raquel KIRK IM XR PROCEDURES Edited Result - Final * [...] Martinez shahid in the thoracic spine. Code 46653 -------- FINAL REPORT -------- Dictated By: Hung Glass Dictated Date: 03/31/2025 10:49 ET Assigned Physician: Hung Glass Reviewed and Electronically Signed By: Hung Glass Signed Date: 03/31/2025 10:54 ET Workstation ID: [id number] Transcribed By: Self Edit Transcribed Date: 03/31/2025 [...] as also seen on the chest radiograph evcafyshq44/7/2024. IMPRESSION: Satisfactory appearance following anterior fusion at [...] the Martinez shahid in the thoracicspine. Code 89027 -------- FINAL REPORT -------- Dictated By: Hung Glass Dictated Date: 03/31/2025 10:49 ET Assigned Physician: Hung Glass Reviewed and Electronically Signed By: Hung Glass Signed Date: 03/31/2025 10:54 ET Workstation ID: [id number] Transcribed By: Self Edit Transcribed Date: 03/31/2025 10:49 ET us Lory KIRK IMG XR PROCEDURES Final Re sult * TH AN ENDOTRACHEAL(NO CHARGE) (03/18/2025 10:46 AM EDT) Niurka Jha CRNA - 03/18/2025 10:46 AM EDT Niurka Lucio CRNA 03/18/2025 10:48 AM General Information and Staff Patient location during procedure: OR Resident/PARENTING SKILLS INSTRUCTOR: Niurka Lucio CRNA Performed: resident/PARENTING SKILLS INSTRUCTOR/CAA Performed by: Niurka Lucio CRNA Authorized by: [...] [facility] Comment:Calculation based on the [...] Kiel Stevens DO LAB BLOOD ORDERABLES Ioana brandon Result [facility] [address] [place] [address], from Last 3 Months or Most Recently Relevant to Health Maintenance Insurance [facility] Advance Directives * Full Code - Default [...] currently active code status orders. Care Teams Tempering Kiln Tender Relationship Specialty Start Date End Date Anthony Ruiz MD [address] [place] [address] [address] [facility] [place] [address] PCP - General Internal Medicine 01/26/21
== END 2025-06-10 10:27 | disposition home or self-care (01) ==
LOC: HO.HCC 09:46
PROVIDERS: PCP Internal Medicine; Visit Provider Clinical Nurse Specialist Psychiatric/Mental Health
DX: F11.20 Opioid dependence, uncomplicated (principal)

== ENCOUNTER → 2025-06-10 09:46 | Outpatient (BNVA) | payer OTHER, SELFPAY | PROVIDERS: PCP Internal Medicine; Visit Provider Clinical Nurse Specialist Psychiatric/Mental Health | DX: F11.20 Opioid dependence, uncomplicated (principal) | CPT/HCPCS: 96372; Q9991 ==

== ENCOUNTER 2025-07-05 09:48 | Outpatient (AMB) | payer OTHER, SELFPAY ==
--- NOTE | 2025-07-05 09:16 | AM.OFFVISNUR ---
Intake Visit Reasons: Injection Allergies No Known Allergies Allergy (Verified 06/10/25 10:01) Nursing Note Ed is present today for his q4 week Sublocade 100 mg injection. Ed is alert, oriented, cooperative with care and presents with appropriate affect. Ed reports no negative symptoms reported related to the injection and reports no issue with past injection. Traveled to [facility] over the past month and enjoyed. Looking forward to holidays, traveling to [facility] to see family. Follow up in 4 weeks for the next injection. Office Meds Sublocade 100 mg/0.5 mL solution,extended release subcutaneous syringe Performing Provider: Dana Jo MD Performing Location: [facility] Administered by: Ana Decker RN on 07/05/25 10:16 Dose Route Admin Location Dispensed Lot Number Expiration Date [facility] Rn Discharge 100 mg subcut RUQ 0.5 mL [id number] 01/09/26 [address]-1 [employer] Total Dispensed Waste 0.5 mL 0 % Comments: Pt is present for 100 mg Sublocade injection, pt denies complications with previous injections and tolerated injection well. Pt educated on signs and symptoms of infection at the injection site, urged to call [facility] with any questions or concerns, pt verbalized understanding. Follow up appointment made in 4 weeks for next injection. Assessment & Plan Assessment & Plan Orders: Orders AMB Buprenorphine Injection Today F11.20 - Opioid dependence, uncomplicated Coding
--- OUTSIDE RECORDS SUMMARY | 2025-07-05 11:32 | XMS_ITS | Clinical Summary ---
Author Organization [facility] Address [address] [place] [address] Phone Care Team Providers Care Engraver Letter Name Role Phone Anthony Ruiz MD Primary Care Provider [phone] Allergies No known active allergies Medications guselkumab [...] no instability on the flexion-extension x-rays from [place] yesterday though there is a little gap [...] is requesting to get them done at [facility], order faxed over. All postop questions answered. I asked him to call with any concerns or questions prior to his next appointment. 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 04/21/2025 3:00 PM EDT Consult Orthopedic Surgery - [place] [address] [facility] [address] [place] [address] Raquel Lo PA Ulnar impaction syndrome, right (Primary Dx); Olecranon bursitis, right elbow from Last 3 Months Immunizations Immunization Administration [...] Hypercholesterolemia Obesity 2020 morbid Scoliosis Atrial fibrillation ([facility] V24, [facility] V28) unknown how long in found when had recent echo no tx Essential hypertension Adverse effect of anesthesia CHF (congestive heart failur e) (CMS/[facility] V24, [facility] V28) Arrhythmia A-fib ([facility] V24, [facility] V28) Irregular heart beat History of [...] 04/29/2025 3:14 PM EDT Plan of Treatment Health Maintenance Due Date [...] this topic Medical Devices Implanted Type Area Used Equipment Sales Representative Device Identifier Shelf Expiration Date Model / Serial / Lot L-Asr Syed Canc [id number] Fd Fee - [id number] - [id number] Implanted:Qty : 1 on 06/18/2024 by Natalia Marinelli MD at [facility] [employer] Bone N/A: Spine Cervical [employer] 10/17/2036 [id number] / [id number] / [id number] Powder Surgifoam Absorb Gel - S1978 - [id number] Implanted:Qty : 1 on 06/18/2024 by Natalia Marinelli MD at [facility] [employer] N/A: Spine Cervical [employer] 01/13/20261977 / [id number] Powder Surgifoam Absorb Gel - Sna - [id number] Implanted:Qty : 1 on 01/25/2025 by Natalia Marinelli MD at [facility] [employer] N/A: Spine Cervical [employer] [id number] 10/08/20261977 / [id number] Spinal Hardware Spinal Hardware N/A: Spine Lumbar Screw Cerv Porfirio St 15x3.5mm - S0000 - [id number] Implanted:Qty : 4 on 06/18/2024 by Natalia Marinelli MD at [facility] Spinal Hardware N/A: Spine Cervical [employer] SO[employer] [id number] / 0000 / 0000 Plate Spin Cerv Ant Zevo 19mm - Sna - [id number] Implanted:Qty : 1 on 06/18/2024 by Natalia Marinelli MD at [facility] Spinal Hardware N/A: Spine Cervical [employer] [id number] / NA / NA Plate Spin Cerv Ant Zevo 19mm - Sna - [id number] Implanted:Qty : 1 on 01/25/2025 by Natalia Marinelli MD at [facility] Spinal Hardware N/A: Spine Cervical [employer] [id number] / NA / NA Screw Cerv Porfirio St 15x3.5mm - Sna - [id number] Implanted:Qty : 4 on 01/25/2025 by Natalia Marinelli MD at [facility] Spinal Hardware N/A: Spine Cervical [employer] [id number] / NA / NA Mesh 3dmax Lght Lg 4.1x6.2 R 4.1x6.2in - Sna - [id number] Implanted:Qty : 1 on 03/18/2025 by Manav Gibbs MD at [facility] Surgical Mesh Sling Implants Right: Pelvis CR BARD - [employer] [id number] 08/08/2029 [id number] / NA / [id number] Lordotic Asr Cortical Cancellous Block Implanted:Qty : 1 on 01/25/2025 by Natalia Marinelli MD at [facility] N/A: Spine Cervical [employer] [id number] 06/16/2027 [id number] / [id number] / [id number] Procedures Procedure Name Priority Date/Time Associated Diagnosis Comments XR ELBOW 3+ VIEWS RIGHT Routine 04/21/2025 3:12 PM EDT Pain XR WRIST 3+ VIEWS RIGHT Routine 04/21/2025 3:12 PM EDT Pain COMPREHENSIVE METABOLIC PANEL STAT 06/28/2024 8:20 AM [...] right elbow without osseous abnormalities Raquel KIRK [facility] [place] [place] XR PROCEDURES Edited Result - Final * [...] XR PROCEDURES Edited Result - Final * (ABNORMAL) Comprehensive metabolic panel (06/28/2024 8:20 AM EST) Sodium 133 133 - 145 mmol/L LAB CHEMISTRY METHOD 06/28/2024 9:12 AM [facility] Potassium 3.7 3.5 - [...] g/dL LAB CHEMISTRY METHOD 06/28/2024 9:12 AM [facility] Albumin 3.3 3.2 - 5.0 g/dL LAB CHEMISTRY METHOD 06/28/2024 9:12 AM [facility] Total Bilirubin 0.5 0.0 - 1.4 mg/dL LAB CHEMISTRY METHOD 06/28/2024 9:12 AM [facility] Blood Venous blood specimen / Unknown Venipuncture / Unknown 06/28/2024 8:20 AM EST 06/28/2024 8:23 AM EST us [facility] Kiel Stevens DO LAB BLOOD ORDERABLES Ioana l Result [facility] [address] [place] [address], from Last 3 Months or Most Recently Relevant to Health Maintenance Insurance [facility] Advance Directives * Full Code - [...] currently active code status orders. Care Teams Engraver Letter Relationship Specialty Start Date End Date Anthony Ruiz MD [address] [place] [address] [address] [facility] [place] [address] PCP - General Internal Medicine 01/26/21
== END 2025-07-05 10:25 | disposition home or self-care (01) ==
LOC: HO.HCC 09:48
PROVIDERS: PCP Internal Medicine
DX: F11.20 Opioid dependence, uncomplicated (principal)

== ENCOUNTER → 2025-07-05 09:48 | Outpatient (BNVA) | payer OTHER, SELFPAY | PROVIDERS: PCP Internal Medicine | DX: F11.20 Opioid dependence, uncomplicated (principal) | CPT/HCPCS: 96372; Q9991 ==

== ENCOUNTER 2025-07-06 09:11 | Outpatient (REF) | payer OTHER, SELFPAY ==
[2025-07-06 10:09] LABS: MANUAL DIFF FLAG NO
[2025-07-06 10:34] LABS: Hematocrit 45.9 % (42.0-52.0); Hemoglobin 14.6 g/dl (14.0-18.0); Imm Gran Abs Auto 0.02 X10*3/uL (0.00-0.03); Imm Gran Pct Auto 0.5 % (0.0-0.4); Lymphocytes Absolute Auto 0.4 X10*3/uL (1.2-4.9); Mean Corpuscular HGB Conc 31.8 g/dl (31.0-36.0); Mean Corpuscular Hemoglobin 29.1 pg (27.0-33.0); Mean Corpuscular Volume 91.6 fL (80.0-98.0); NRBC Abs Auto 0.000 X10*3/uL (0.0-0.012); NRBC Pct Auto 0.0 /100WBC (0.0-0.2); Red Blood Count 5.01 X10*6/uL (4.60-5.80); White Blood Count 4.0 X10*3/uL (4.8-10.8)
[2025-07-06 11:12] LABS: Alanine Aminotransferase 26 U/L (0-40); Albumin Level 4.3 g/dL (3.5-5.0); Alkaline Phosphatase 80 U/L (39-117); Anion Gap 9 (12-20); Aspartate Amino Transferase 40 U/L (5-37); Blood Urea Nitrogen 41 mg/dL (9-16); Calcium 9.3 mg/dL (8.4-10.2); Carbon Dioxide 31 mmol/L (22-29); Chloride 104 mmol/L (96-108); Cholesterol 120 mg/dL (<200); Estimated Glomerular Filt Rate 49; HDL Cholesterol 52 mg/dL (>40); Potassium 4.4 mmol/L (3.3-5.1); Sodium 140 mmol/L (135-145); Total Protein 7.1 g/dL (6.5-8.0); Triglycerides 55 mg/dL (<150)
--- OUTSIDE RECORDS SUMMARY | 2025-07-06 11:41 | XMS_ITS | Clinical Summary ---
Author Organization [facility] Address [address] [place] [address] Phone Care Team Providers Care Manager Area Name Role Phone Anthony Ruiz MD Primary Care Provider [phone] Allergies No known active allergies Medications guselkumab [...] no instability on the flexion-extension x-rays from [place] yesterday though there is a little gap [...] is requesting to get them done at [facility], order faxed over. All postop questions answered. I asked him to call with any concerns or questions prior to his next appointment. 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 04/21/2025 3:00 PM EDT Consult Orthopedic Surgery - [place] [address] [facility] [address] [place] [address] Raquel Lo PA Ulnar impaction [...] Hypercholesterolemia Obesity 2020 morbid Scoliosis Atrial fibrillation ([facility] V24, [facility] V28) unknown how long in found when had recent echo no tx Essential hypertension Adverse effect of anesthesia CHF (congestive heart failur e) ([facility] V24, [facility] V28) Arrhythmia A-fib ([facility] V24, [facility] V28) Irregular heart beat History of transfusion [...] this topic Medical Devices Implanted Type Area Control Operator Device Identifier Shelf Expiration Date Model / Serial / Lot L-Asr Syed Canc [id number] Fd Fee - [id number] - [id number] Implanted:Qty : 1 on 06/18/2024 by Natalia Marinelli MD at [facility] [employer] Bone N/A: Spine Cervical [employer] 10/17/2036 [id number] / [id number] / [id number] Powder Surgifoam Absorb Gel - S1978 - [id number] Implanted:Qty : 1 on 06/18/2024 by Natalia Marinelli MD at [facility] [employer] N/A: Spine Cervical [employer] 01/13/20261977 / [id number] Powder Surgifoam Absorb Gel - Sna - [id number] Implanted:Qty : 1 on 01/25/2025 by Natalia Marinelli MD at [facility] [employer] N/A: Spine Cervical [employer] [id number] 10/08/20261977 / [id number] Spinal Hardware Spinal Hardware N/A: Spine Lumbar Screw Cerv [address] 15x3.5mm - S0000 - [id number] Implanted:Qty : 4 on 06/18/2024 by Natalia Marinelli MD at [facility] Spinal Hardware N/A: Spine Cervical [employer] SOFAMOR DANEK [id number] / 0000 / 0000 Plate Spin Cerv Ant Zevo 19mm - Sna - [id number] Implanted:Qty : 1 on 06/18/2024 by Natalia Marinelli MD at [facility] Spinal Hardware N/A: Spine Cervical [employer] [id number] / NA / NA Plate Spin Cerv Ant Zevo 19mm - Sna - [id number] Implanted:Qty : 1 on 01/25/2025 by Natalia Marinelli MD at [facility] Spinal Hardware N/A: Spine Cervical [employer] [id number] / NA / NA Screw Cerv Porf[address]io [address] 15x3.5mm - Sna - [id number] Implanted:Qty : 4 on 01/25/2025 by Natalia Marinelli MD at [facility] Spinal Hardware N/A: Spine Cervical [employer] [id number] / NA / NA Mesh 3dmax Lght Lg 4.1x6.2 R 4.1x6.2in - Sna - [id number] Implanted:Qty : 1 on 03/18/2025 by Manav Gibbs MD at [facility] Surgical Mesh Sling Implants Right: Pelvis CR BARD - DAVOL DIV [id number] 08/08/2029 [id number] / NA / [id number] Lordotic Asr Cortical Cancellous Block Implanted:Qty : 1 on 01/25/2025 by Natalia Marinelli MD at [facility] N/A: Spine Cervical [employer] [id number] 06/16/2027 [id number] / [id number] / [id number] Procedures Procedure Name Priority Date/Time Associated [...] right elbow without osseous abnormalities Raquel KIRK [facility] XR PROCEDURES Edited Result - Final * [...] [facility] Comment:Calculation based on the [...] 06/28/2024 9:12 AM [facility] Alkaline Phosphatase 64 42 - 121 unit/L LAB CHEMISTRY METHOD 06/28/2024 9:12 AM [facility] Total Protein 7.1 6.0 - 8.0 g/dL LAB CHEMISTRY METHOD 06/28/2024 9:12 AM [facility] Albumin 3.3 3.2 - 5.0 g/dL LAB CHEMISTRY METHOD 06/28/2024 9:12 AM [facility] Total Bilirubin 0.5 0.0 - 1.4 mg/dL LAB CHEMISTRY METHOD 06/28/2024 9:12 AM [facility] Blood Venous blood specimen / Unknown Venipuncture / Unknown 06/28/2024 8:20 AM EST 06/28/2024 8:23 AM EST us [facility] Kiel Stevens DO LAB BLOOD ORDERABLES Ioana l Result [facility] [address] [place] [address], from Last 3 Months or Most Recently Relevant to Health Maintenance Insurance [facility] Advance Directives * Full Code - [...] currently active code status orders. Care Teams Manager Area Relationship Specialty Start Date End Date Anthony Ruiz MD [address] [place] [address] [address] [facility] [place] [address] PCP - General Internal Medicine 01/26/21
== END 2025-07-06 09:12 | disposition home or self-care (01) ==
LOC: HO.LAB 09:11
PROVIDERS: PCP Internal Medicine; Visit Provider Nurse Practitioner Family
DX: I48.19 Other persistent atrial fibrillation (principal); I11.0 Hypertensive heart disease with heart failure; I50.9 Heart failure, unspecified; I42.8 Other cardiomyopathies; Z87.74 Personal history of (corrected) congenital malformations of heart and circulatory system; Z79.01 Long term (current) use of anticoagulants; Z79.899 Other long term (current) drug therapy
CPT/HCPCS: 36415; 80053; 80061; 84443; 85025; 93005

== ENCOUNTER 2025-07-06 09:11 | Outpatient (AMB) | payer OTHER, SELFPAY ==
--- NOTE | 2025-07-06 09:16 | MHC.OFFVIS ---
Vital Signs 07/06/25 09:17 Height 5 ft 9 in Weight 192 lb 3.889 oz BMI 28.4 BP 128/80 Blood Pressure Location Lt brachial Position Sitting Pulse 67 Pulse Source Monitor Intake Visit Reasons: overdue f/up Career Coordinator Required: No Allergies No Known Allergies Allergy (Verified 07/06/25 09:19) Medication List - Last Reconciled 07/06/25 by JOSSIE GoodenC apixaban (Eliquis) 5 mg PO BID buprenorphine ER (Sublocade) 100 mg (0.5 mL) subcut QMONTH 30 days fenofibrate 160 mg PO DAILY furosemide 40 mg (2 x 20 mg) PO DAILY metoprolol succinate ER 50 mg PO DAILY simvastatin 40 mg PO BEDTIME HPI HPI overdue f/up: Details: The patient is a 59 year old individual presenting for a follow-up visit for atrial fibrillation and CHF. The patient's last visit was on 06/09/2024. The patient has a history of an Atrial Septal Defect (ASD) repair performed approximately 8-10 years ago. The patient developed chronic atrial fibrillation as a outcome of the surgery but reports being asymptomatic and does not feel the irregular rhythm. The patient is on metoprolol for heart rate control and Eliquis for anticoagulation, and denies any bleeding issues. The patient has a history of heart failure and takes furosemide 20 mg twice daily. The patient reports becoming short of breath and unable to run as usual if a dose is missed. The patient denies chest pain, lightheadedness, orthopnea, or pedal edema. The last echocardiogram in 2023 showed an ejection fraction of 50-55%. Past lab work from July of last year showed a slightly elevated kidney function test, which has not been rechecked since. The patient reports poor hydration, stating that the patient typically only drinks water when working out. The patient maintains an active lifestyle, engaging in weight training and cardio twice a day, and feels physically well during these activities. Current medications include Eliquis, metoprolol, simvastatin, fenofirate and furosemide. He has not had any hospitalizations or changes to his health in the last year. [facility] Medical History Cervical spondylosis Synovial cyst of popliteal space [[place]], left knee COVID-19 virus infection Biceps tendon rupture Atrial septal defect Obstructive sleep apnea Chronic low back pain Obesity (BMI 30-39.9) Atrial fibrillation Psoriasis Hypercholesterolemia Left wrist tendinitis Surgical History Hx of fusion of cervical spine H/O umbilical hernia repair H/O arthroscopic knee surgery History of repair of atrial septal defect H/O spinal fusion Family History Father No problems noted. Mother No problems noted. 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 Cognitive needs: No Hearing needs: No Vision needs: No Review of Systems Const All systems reviewed & are unremarkable except as noted in HPI and below ENT Denies dizziness Card Denies chest pain, Denies chest pain at rest, Denies chest pain with activity, Denies rapid heart rate, Denies pedal edema, Denies edema, Denies leg edema, Denies lightheadedness, Denies palpitations, Denies dyspnea, Denies dyspnea on exertion and Denies orthopnea Resp Denies cough, Denies dyspnea and Denies dyspnea on exertion GI Denies hematochezia and Denies change in stool character Musc Denies abnormal gait, Denies limited range of motion, Denies muscle cramps, Denies muscle weakness, Denies numbness, Denies radiating pain into limb, Denies stiffness and Denies tingling Neuro Denies abnormal gait, Denies dizziness, Denies numbness and Denies tingling Endo Denies palpitations Physical Exam Vital Signs: Last Vital Signs Pulse 67 07/06/25 09:17 BP 128/80 07/06/25 09:17 BMI result Body Mass Index 28.4 Const General: cooperative, healthy appearing, comfortable and no acute distress Orientation/consciousness: patient oriented x3 Neck Neck: Yes normal visual inspection Chest Chest palpation & inspection: normal inspection of the chest Resp Effort & Inspection: normal respiratory effort Auscultation: clear to auscultation bilaterally, no crackles, no rales, no rhonchi and no wheezes Cardio Rate: regular rate Rhythm: abnormal rhythm Heart sounds: S1 normal heart sound present, S2 normal heart sound present, no gallops, no murmurs and no rubs Peripheral pulses: Peripheral pulses 2+ throughout Neuro General: patient oriented x3 Extrem General: Yes normal to inspection, No no pedal edema and No calf tenderness Psych Appearance: grossly normal Mental Status: mental status grossly normal Speech and movement: Normal speech and movement present Office Procedures EKG Details: Today, read by me, atrial fibrillation, incomplete RBBB, rate 67, Qtc 433ms [id number], Complete Assessment & Plan Assessment & Plan (1) Persistent atrial fibrillation: Code(s): I48.19 - Other persistent atrial fibrillation Category: Medical Plan: History of persistent atrial fibrillation that is treated with rate control using metoprolol XL 50 mg daily. Last echocardiogram 10/29/2023 showed EF 50-55%, severe increase in the RV size, severe biatrial enlargement, no significant valve abnormalities. EKG done today showing AFib, rate 67. He is on Eliquis for anticoagulation. He is due for updated labs, orders entered. (2) NICM (nonischemic cardiomyopathy): Code(s): I42.8 - Other cardiomyopathies Category: Medical Plan: History of nonischemic cardiomyopathy with echo 05/24/2023 showing EF 30-35%. Repeat echo 10/2023 showed EF 50-55%. He did have a nuclear stress test 02/2024 which was suboptimal study. He does not have symptoms of obstructive coronary disease. He reports good activity tolerance and exercises routinely. (3) Essential hypertension: Code(s): I10 - Essential (primary) hypertension Category: Medical Plan: Blood pressure goal less than 130/80. Well controlled at this time. No med changes made (4) Status post atrial septal defect closure: Code(s): Z87.74 - Personal history of (corrected) congenital malformations of heart and circulatory system Category: Surgical Plan: History of ASD closure 8-10 years ago at [facility]. Plan I discussed with the patient the management of the patient's chronic conditions, including atrial fibrillation and heart failure. I reiterated the importance of continuing metoprolol for heart rate control and Eliquis for stroke prevention, and the patient confirmed no bleeding complications. I noted that labs had not been performed in a year and that a previous kidney test was elevated. I explained that dehydration could be a factor and recommended ordering new blood work to check kidney function, electrolytes, and blood counts. I informed the patient that no other testing is necessary at this time and recommended a follow-up in one year, or sooner if any issues arise. The patient agreed to the plan and to have the blood work done. Orders: Orders Comprehensive Met. Panel Today I10 - Essential (primary) hypertension, I48.91 - Unspecified atrial fibrillation TSH reflex Free T4 Today I10 - Essential (primary) hypertension, I48.91 - Unspecified atrial fibrillation Complete Blood Count Auto Diff Today I10 - Essential (primary) hypertension, I48.91 - Unspecified atrial fibrillation Lipid Panel Today I10 - Essential (primary) hypertension, I48.91 - Unspecified atrial fibrillation Patient Instructions: - Please continue to take your medications as prescribed, including Eliquis, metoprolol, and your water pill (furosemide). - Go for the blood tests that we ordered for you today. This will help us check your kidney function and blood counts. - We will call you once your blood test results are available. - Make an effort to drink more water throughout the day to stay well-hydrated. - Please schedule a follow-up visit with our office in one year. - Contact our office sooner if you experience any new or worsening symptoms. Patient was informed and verbally consented to the use of an ambient scribe for clinic note documentation during this visit. Visit time spent on chart review, interview, assessment, orders, documentation. Coding Level of Care Code Est Pt Level 4 (93175) Complex visit Add On G2211 Diagnoses Persistent atrial fibrillation I48.19 NICM (nonischemic cardiomyopathy) I42.8 Essential hypertension I10 Status post atrial septal defect closure Z87.74 CPT Codes EKG - CPT: [id number], Complete ([id number]) Time Spent (min) 28
[2025-07-06 09:17] VITALS: BP 128/80; PULSE 67; BMI 28.4
== END 2025-07-06 09:39 | disposition home or self-care (01) ==
LOC: HO.HCS 09:12
PROVIDERS: PCP Internal Medicine; Visit Provider Nurse Practitioner Family
DX: I48.19 Other persistent atrial fibrillation (principal); I42.8 Other cardiomyopathies; I10 Essential (primary) hypertension; Z87.74 Personal history of (corrected) congenital malformations of heart and circulatory system
CPT/HCPCS: 93010; 99214

== ENCOUNTER 2025-07-29 10:02 | Outpatient (AMB) | payer OTHER, SELFPAY ==
--- NOTE | 2025-07-29 08:33 | AM.OFFVISNUR ---
Vital Signs 07/29/25 10:20 BP 126/76 Pulse 50 Pulse Oximetry (%) 96 Intake Visit Reasons: Injection Allergies No Known Allergies Allergy (Verified 07/29/25 10:21) Nursing Note Ed is present today for his q4 week Sublocade 100 mg injection. Ed is alert, oriented, cooperative with care and presents with appropriate affect. Ed reports no negative symptoms reported related to the injection and reports no issue with past injection. Ed is traveling to [place] over the weekend to help family travel back to the area and is looking forward to the holidays. Follow up in 4 weeks for the next injection. Office Meds Sublocade 100 mg/0.5 mL solution,extended release subcutaneous syringe Performing Provider: Dana Jo MD Performing Location: [facility] Administered by: Ana Decker RN on 07/29/25 10:51 Dose Route Admin Location Dispensed Lot Number Expiration Date [facility] Order Entry Clerk 100 mg subcut LLQ 0.5 mL [id number] 03/11/26 [address]-0 [employer] Total Dispensed Waste 0.5 mL 0 % Comments: Pt is present for 100 mg Sublocade injection, pt denies complications with previous injections and tolerated injection well. Pt educated on signs and symptoms of infection at the injection site, urged to call [facility] with any questions or concerns, pt verbalized understanding. Follow up appointment made in 4 weeks for next injection. Assessment & Plan Assessment & Plan Orders: Orders AMB Buprenorphine Injection Today F11.20 - Opioid dependence, uncomplicated Coding
[2025-07-29 10:20] VITALS: BP 126/76; PULSE 50; O2SAT 96
--- OUTSIDE RECORDS SUMMARY | 2025-07-29 12:20 | XMS_ITS | Clinical Summary ---
Author Organization [facility] Address [address] [place] [address] Phone Care Team Providers Care Dedicated Local Truck Driver Name Role Phone Anthony Ruiz MD Primary Care Provider [phone] Allergies No known active allergies Medications guselkumab [...] no instability on the flexion-extension x-rays from [place] yesterday though there is a little gap [...] is requesting to get them done at [facility], order faxed over. All postop questions answered. I asked him to call with any concerns or questions prior to his next appointment. Resolved Problems Problem Noted Date Diagnosed Date Resolved Date Inguinal hernia of right pavel e without obstruction or gangrene 02/19/2025 03/18/2025 Encounters Date Type Department Care Team Description 07/07/2025 Telephone Neurosurgery [facility] [address] [facility] [address] [place] [address] Muriel Khan [place] 04/29/2025 3:15 PM EDT Office Visit General Surgery - [place] [address] [facility] [address] [place] [address] Manav Gibbs MD Acute folliculitis (Primary Dx) 04/29/2025 3:00 PM EDT Office Visit Orthopedic Surgery [facility] [address] [facility] [address] [place] [address] Eriberto Villa MD Olecranon bursitis, right elbow (Primary Dx); 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 from Last 3 Months Immunizations Immunization Administration [...] Hypercholesterolemia Obesity 2020 morbid Scoliosis Atrial fibrillation ([facility] V24, [facility] V28) unknown how long in found when had recent echo no tx Essential hypertension Adverse effect of anesthesia CHF (congestive heart failur e) ([facility] V24, [facility] V28) Arrhythmia A-fib ([facility] V24, [facility] V28) Irregular heart beat History [...] Orientation Straight 06/17/2024 9: 01 AM EST Last Filed Vital Signs Vital Sign Reading [...] Care Team (Late st Contact Info) Description 08/03/2025 3:30 PM EST Office Visit Neurosurgery [facility] [address] [facility] [address] [place] [phone] Natalia Marinelli MD [address] [place] [address] Health Maintenance Due Date Last Done Comments [...] this topic Medical Devices Implanted Type Area Toppiece Chopper Device Identifier Shelf Expiration Date Model / Serial / Lot L-Asr Syed Canc [id number] Fd Fee - [id number] - [id number] Implanted:Qty : 1 on 06/18/2024 by Natlaia Marinelli MD at [facility] [employer] Bone N/A: Spine Cervical [employer] 10/17/2036 [id number] / [id number] / [id number] Powder Surgifoam Absorb Gel - S1978 - [id number] Implanted:Qty : 1 on 06/18/2024 by Natalia Marinelli MD at [facility] [employer] N/A: Spine Cervical [employer] 01/13/20261977 / 1977 / [id number] Powder Surgifoam Absorb Gel - Sna - [id number] Implanted:Qty : 1 on 01/25/2025 by Natalia Marinelli MD at [facility] [employer] N/A: Spine Cervical [employer] [id number] 10/08/20261977 / [id number] Spinal Hardware Spinal Hardware N/A: Spine Lumbar Screw Cerv Porfirio St 15x3.5mm - S0000 - [id number] Implanted:Qty : 4 on 06/18/2024 by Natalia Marinelli MD at [facility] Spinal Hardware N/A: Spine Cervical [employer] SOF[employer] DANEK [id number] / 0000 / 0000 Plate Spin Cerv Ant Zevo 19mm - Sna - [id number] Implanted:Qty : 1 on 06/18/2024 by Natalia Marinelli MD at [facility] Spinal Hardware N/A: Spine Cervical [employer] SO[employer] [id number] / NA / NA Plate Spin Cerv Ant Zevo 19mm - Sna - [id number] Implanted:Qty : 1 on 01/25/2025 by Natalia Marinelli MD at [facility] Spinal Hardware N/A: Spine Cervical [employer] [id number] / NA / NA Screw Cerv Porfirio [address] 15x3.5mm - Sna - [id number] Implanted:Qty : 4 on 01/25/2025 by Natalia Marinelli MD at [facility] Spinal Hardware N/A: Spine Cervical [employer] [id number] / NA / NA Mesh 3dmax Lght Lg 4.1x6.2 R 4.1x6.2in - Sna - [id number] Implanted:Qty : 1 on 03/18/2025 by Manav Gibbs MD at [facility] Surgical Mesh Sling Implants Right: Pelvis CR BARD - DAVOL DIV [id number] 08/08/2029 [id number] / NA / [id number] Lordotic Asr Cortical Cancellous Block Implanted:Qty : 1 on 01/25/2025 by Natalia Marinelli MD at [facility] N/A: Spine Cervical [employer] [id number] 06/16/2027 [id number] / [id number] / [id number] Procedures Procedure Name Priority Date/Time Associated Diagnosis Comments COMPREHENSIVE METABOLIC PANEL STAT 06/28/2024 8:20 AM EST from Last 3 Months or Most Recently Relevant to Health Maintenance Results * (ABNORMAL) Comprehensive metabolic panel (06/28/2024 8:20 AM EST) Sodium 133 133 - 145 mmol/L LAB CHEMISTRY METHOD 06/28/2024 9:12 AM [facility] Potassium 3.7 3.5 - 5.5 mmol/L LAB CHEMISTRY METHOD 06/28/2024 9:12 AM [facility] Chloride 93(L) 96 - 110 mmol/L LAB CHEMISTRY METHOD 06/28/2024 9:12 AM [facility] CO2 31 21 - 32 mmol/L LAB CHEMISTRY METHOD 06/28/2024 9:12 AM [facility] Anion Gap 9 3 - 11 LAB CHEMISTRY METHOD 06/28/2024 9:12 AM [facility] Glucose 132(H) 70 - 100 mg/dL LAB CHEMISTRY METHOD 06/28/2024 9:12 AM [facility] BUN 23 5 - 25 mg/dL LAB CHEMISTRY METHOD 06/28/2024 9:12 AM [facility] Creatinine 1.28 0.70 - 1.30 mg/dL LAB CHEMISTRY METHOD 06/28/2024 9:12 AM [facility] eGFR 66 >=60 mL/min/1. 73m2 LAB CHEMISTRY METHOD 06/28/2024 9:12 AM [facility] Comment:Calculation based on the Chronic Kidney Disease Epidemiology Collaboration (CKD-EPI) equation refit without adjustment for race. BUN/Creatinine Ratio 18.0 LAB CHEMISTRY METHOD 06/28/2024 9:12 AM [facility] Calcium 9.2 8.5 - 10.5 mg/dL LAB CHEMISTRY METHOD 06/28/2024 9:12 AM [facility] AST (SGOT) 78(H) 10 - 42 unit/L LAB CHEMISTRY METHOD 06/28/2024 9:12 AM [facility] ALT (SGPT) 58 10 - 60 unit/L LAB CHEMISTRY METHOD 06/28/2024 9:12 AM [facility] Alkaline Phosphatase 64 42 - 121 unit/L LAB CHEMISTRY METHOD 06/28/2024 9:12 AM [facility] Total Protein 7.1 6.0 - 8.0 g/dL LAB CHEMISTRY METHOD 06/28/2024 9:12 AM [facility] Albumin 3.3 3.2 - 5.0 g/dL LAB CHEMISTRY METHOD 06/28/2024 9:12 AM [facility] Total Bilirubin 0.5 0.0 - 1.4 mg/dL LAB CHEMISTRY METHOD 06/28/2024 9:12 AM [facility] Blood Venous blood specimen / Unknown Venipuncture / Unknown 06/28/2024 8:20 AM EST 06/28/2024 8:23 AM EST us Judy Stevens DO LAB BLOOD ORDERABLES Ioana l Result [facility] [address] [place] [address], from Last 3 Months or Most Recently Relevant to Health Maintenance Insurance [employer] Advance Directives * Full Code - Default [...] currently active code status orders. Care Teams Dedicated Local Truck Driver Relationship Specialty Start Date End Date Anthony Ruiz MD [address] [place] [address] [address] [facility] [place] [address] PCP - General Internal Medicine 01/26/21
== END 2025-07-29 13:25 | disposition home or self-care (01) ==
LOC: HO.HCC 10:02
PROVIDERS: PCP Physician Assistant Medical
DX: F11.20 Opioid dependence, uncomplicated (principal)

== ENCOUNTER → 2025-07-29 10:02 | Outpatient (BNVA) | payer OTHER, SELFPAY | PROVIDERS: PCP Physician Assistant Medical | DX: F11.20 Opioid dependence, uncomplicated (principal) | CPT/HCPCS: 96372; Q9991 ==